=== PATIENT | female | born 1935 | race Caucasian/White ===

== ENCOUNTER → 2016-07-30 | Outpatient (CLI) | payer MEDICARE, OTHER ==
[~2016-07-30] MED LIST: ALPR.25 PEG; AMLO5TAB2 PEG; AMLO5TAB2 PO; AMLO5TAB96 PO; APIX5TAB PEG; ASPI325T PEG; ASPI325T PO; ASPI81CH37 CHEW; COUM2TAB PO; COZA100T PO; FISH1000 PO; FLUD.1 PEG; HOSP BED1; LANO0.2510 PO; LEVO50TA4 PEG; LEVO50TA4 PO; LIFT HOYER; LOSA100T PEG; LOSA100T PO; MELA1TAB22 PEG; METO25TA3 NG; METO25TA3 PEG; METO5SOL PO; SYNT25TA PO; TOPR25TA2 PO; TOPR50TA PO; WARF2.5 PO; WHEEMIS3; [UNRECOGNIZED DRUG - SUPPLY]
[2016-07-30 15:55] LABS: ANION GAP 10 MEQ/L (5-15); AST (GOT) 17 U/L (15-37); BICARBONATE 26.5 MEQ/L (21.0-32.0); BLOOD UREA NITROGEN 21 MG/DL (7-18); CHLORIDE 104 MEQ/L (98-107); GLOMERULAR FILTRATION RATE 52 ML/MIN (>89); GLUCOSE,FASTING 101 MG/DL (74-99); POTASSIUM 4.3 MEQ/L (3.5-5.1); SODIUM (NA) 140 MEQ/L (136-145)
[2016-07-30 15:57] LABS: AUTOMATED NEUTROPHIL # 6.6 TH/MM3 (1.8-7.7); BASOPHIL # 0.1 TH/MM3 (0-0.2); BASOPHIL % 0.5 % (0.0-2.0); EOSINOPHIL # 0.1 TH/MM3 (0-0.4); EOSINOPHIL % 0.5 % (0.0-4.0); HEMATOCRIT 35.2 % (35.0-46.0); LYMPH % 71.1 % (9.0-44.0); LYMPHOCYTE # 19.6 TH/MM3 (1.0-4.8); MEAN CELL VOLUME 83.4 FL (80.0-100.0); MEAN CORPUSCULAR HEMOGLOBIN 27.7 PG (27.0-34.0); MEAN CORPUSCULAR HGB CONC 33.2 % (32.0-36.0); MONO % 4.1 % (0.0-8.0); NEUT % 23.8 % (16.0-70.0); PLATELET COUNT 273 TH/MM3 (150-450); RED BLOOD COUNT 4.22 MIL/MM3 (4.00-5.30); RED CELL DISTRIBUTION WIDTH 14.3 % (11.6-17.2); WHITE BLOOD COUNT 27.6 TH/MM3 (4.0-11.0)
[2016-07-30 16:05] LABS: ALKALINE PHOSPHATASE 119 U/L (45-117); ALT (GPT) 21 U/L (10-53); TOTAL BILIRUBIN ADULT 1.1 MG/DL (0.2-1.0)
[2016-07-30 16:08] LABS: HEMO FLAGS AUTO DIFF
[2016-07-30 16:31] LABS: BANDS 2 % (0-6); EOSINOPHILS 1 % (0-4); NEUTROPHIL # MANUAL DIFF 9.1 TH/MM3 (1.8-7.7); PLATELET ESTIMATE SMEAR NORMAL (NORMAL); PLATELET MORPHOLOGY NORMAL (NORMAL); POLYS (SEG NEUTROPHILS) 31 % (16-70); SCAN/DIFF FINAL DIFF MANUAL; WBC DIFF SAMPLE 100
== END ==
LOC: PLAB 13:19
PROVIDERS: ATTEND Family Medicine
DX: I10 Essential (primary) hypertension (principal); D72.820 Lymphocytosis (symptomatic)
CPT/HCPCS: 36415; 80053; 85007; 85027

== ENCOUNTER 2016-08-04 22:08 | Inpatient (IN) | payer MEDICARE, OTHER ==
[~2016-08-04 22:08] MED LIST changes: -ALPR.25 PEG; -AMLO5TAB2 PEG; -AMLO5TAB2 PO; -APIX5TAB PEG; -ASPI325T PEG; -ASPI325T PO; -ASPI81CH37 CHEW; -COUM2TAB PO; -FLUD.1 PEG; -HOSP BED1; -LEVO50TA4 PEG; -LEVO50TA4 PO; -LIFT HOYER; -LOSA100T PEG; -LOSA100T PO; -MELA1TAB22 PEG; -METO25TA3 NG; -METO25TA3 PEG; -METO5SOL PO; -TOPR50TA PO; -WHEEMIS3; -[UNRECOGNIZED DRUG - SUPPLY]
[2016-08-04] MEDS ORDERED: SODIUM CHLOR 0.9% 1000 ML INJ 1,000 ML IV ONE (22:11)
[2016-08-04 22:30] LABS: I-STAT POTASSIUM 3.8 MMOL/L (3.5-4.9)
[2016-08-04 22:32] LABS: AUTOMATED NEUTROPHIL # 7.2 TH/MM3 (1.8-7.7); BASOPHIL # 0.3 TH/MM3 (0-0.2); BASOPHIL % 0.9 % (0.0-2.0); EOSINOPHIL # 0.4 TH/MM3 (0-0.4); EOSINOPHIL % 1.2 % (0.0-4.0); HEMATOCRIT 36.2 % (35.0-46.0); LYMPH % 72.8 % (9.0-44.0); LYMPHOCYTE # 25.2 TH/MM3 (1.0-4.8); MEAN CELL VOLUME 84.1 FL (80.0-100.0); MEAN CORPUSCULAR HEMOGLOBIN 26.4 PG (27.0-34.0); MEAN CORPUSCULAR HGB CONC 31.4 % (32.0-36.0); MONO % 4.3 % (0.0-8.0); NEUT % 20.8 % (16.0-70.0); PLATELET COUNT 271 TH/MM3 (150-450); RED BLOOD COUNT 4.31 MIL/MM3 (4.00-5.30); RED CELL DISTRIBUTION WIDTH 14.3 % (11.6-17.2); WHITE BLOOD COUNT 34.6 TH/MM3 (4.0-11.0)
[2016-08-04 22:34] LABS: HEMO FLAGS AUTO DIFF
[2016-08-04 22:42] LABS: APTT (PATIENT) 21.9 SEC (24.3-30.1); INTERNATIONAL NORMALIZED RATIO 0.9 RATIO; PROTHROMBIN TIME - PATIENT 10.3 SEC (9.8-11.6)
--- NOTE | 2016-08-04 22:49 | RADRPT ---
EXAM DATE/TIME: 08/04/2016 22:11 [facility] COMPARISON: No previous studies available for comparison. INDICATIONS : Stroke alert; right pupil enlargement and left sided weakness. RADIATION DOSE: 56.77 CTDIvol (mGy) This report was called by Dr. Romero to the emergency department at 10: 46 PM MEDICAL HISTORY : Non-responsive. SURGICAL HISTORY : Non-responsive. ENCOUNTER: Initial ACUITY: 1 day PAIN SCALE: Non-responsive LOCATION: cranial TECHNIQUE: Multiple contiguous axial images were obtained of the head. Using automated exposure control and adj ustment of the mA and/or kV according to patient size, radiation dose was kept as low as reasonably a chievable to obtain optimal diagnostic quality images. FINDINGS: CEREBRUM: The ventricles are normal for age. No evidence of midline shift, mass lesion, hemorrhage or acute in farction. No extra-axial fluid collections are seen. POSTERIOR FOSSA: The cerebellum and brainstem are intact. The 4th ventricle is midline. The cerebellopontine angle i s unremarkable. EXTRACRANIAL: The visualized portion of the orbits is intact. SKULL: The calvaria is intact. No evidence of skull fracture. CONCLUSION: 1. No acute findings. Chronic appearing white matter ischemic changes. Tin Romero MD on August 04, 2016 at 22:45 Board Certified Radiologist. This report was verified electronically.
[2016-08-04 22:54] LABS: EOSINOPHILS 1 % (0-4); NEUTROPHIL # MANUAL DIFF 5.9 TH/MM3 (1.8-7.7); POLYS (SEG NEUTROPHILS) 17 % (16-70); WBC DIFF SAMPLE 100
[2016-08-04 22:55] LABS: OVALOCYTES 1+ (NORMAL); PLATELET ESTIMATE SMEAR NORMAL (NORMAL); PLATELET MORPHOLOGY NORMAL (NORMAL); SCAN/DIFF FINAL DIFF MANUAL
--- NOTE | 2016-08-04 22:56 | RADRPT ---
EXAM DATE/TIME: 08/04/2016 22:34 [facility] COMPARISON: No previous studies available for comparison. INDICATIONS : Stroke alert. MEDICAL HISTORY : None. SURGICAL HISTORY : None. ENCOUNTER: Initial ACUITY: 1 day PAIN SCORE: Non-responsive. LOCATION: chest FINDINGS: There is cardiomegaly. No consolidation or effusion. No pneumothorax. Tortuous aorta. CONCLUSION: 1. Cardiomegaly without focal consolidation or effusion. Tin Romero MD on August 04, 2016 at 22:54 Board Certified Radiologist. This report was verified electronically.
[2016-08-04] MEDS ORDERED: IOHEXOL 350 MG/ML 10 ML VIAL (for RAD DIAG) IV ONE (22:57)
[2016-08-04] MEDS ORDERED: MAGNESIUM SULFATE INJ 2 GM in SODIUM CHLORIDE 0.9% INJ 96 ML IV PRN (23:00)
[2016-08-04] MEDS ORDERED: MAGNESIUM SULFATE INJ 4 GM in SODIUM CHLORIDE 0.9% INJ 92 ML IV PRN (23:00)
[2016-08-04] MEDS ORDERED: ONDANSETRON HCL 4 MG/2 ML VIAL IV PRN (23:00)
[2016-08-04] MEDS ORDERED: niCARdipine INJ 25 MG in SODIUM CHLOR 0.9% 250 ML INJ 250 ML IV SCH (23:00)
[2016-08-04] MEDS ORDERED: CHLORHEXIDINE GLUCONATE 2 % 1 PACK (2 CLOTHS) TOP PRN (23:00)
[2016-08-04] MEDS ORDERED: POTASSIUM PHOSPHATE MONOBASIC 500 MG TAB PO PRN (23:00)
[2016-08-04] MEDS ORDERED: SODIUM PHOSPHATE INJ 30 MMOL in SODIUM CHLOR 0.9% 250 ML INJ 240 ML IV PRN (23:00)
[2016-08-04] MEDS ORDERED: ALTEPLASE DRIP IV ONE (23:00)
[2016-08-04] MEDS ORDERED: MAGNESIUM OXIDE 400 MG TAB PO PRN (23:00)
[2016-08-04] MEDS ORDERED: DEXTROSE 50% IN WATER 50 ML VIAL(D50) IV PUSH PRN (23:00)
[2016-08-04] MEDS ORDERED: POTASSIUM PHOSPHATE INJ 30 MMOL in SODIUM CHLOR 0.9% 250 ML INJ 250 ML IV PRN (23:00)
[2016-08-04] MEDS ORDERED: POTASSIUM CHLOR 40 MEQ PREMIX 100 ML IV PRN ×2 (23:00)
[2016-08-04] MEDS ORDERED: SODIUM CHLORIDE 0.9% 50 ML BAG IVF ONE ×2 (23:00)
[2016-08-04] MEDS ORDERED: MISCELLANEOUS NURSING INFORMATION XX SCH (23:00)
[2016-08-04] MEDS ORDERED: MISCELLANEOUS NURSING INFORMATION XX PRN ×2 (23:00)
[2016-08-04] MEDS ORDERED: POTASSIUM PHOSPHATE MONOBASIC 500 MG TAB PO/TUBE PRN (23:00)
[2016-08-04] MEDS ORDERED: ALTEPLASE BOLUS 9 MG/9 ML SYR IV ONE (23:00)
[2016-08-04] MEDS ORDERED: SODIUM CHLORIDE 0.9% FLUSH 10 ML FLUSH IV FLUSH PRN (23:00)
[2016-08-04] MEDS ORDERED: POTASSIUM CHLOR 20 MEQ PREMIX 100 ML IV PRN ×2 (23:00)
--- NOTE | 2016-08-04 23:00 | HHI.HP ---
HPI Service Critical Care Medicine Primary Care Physician Rosalie Almazan MD Admission Diagnosis Diagnosis: Chief Complaint: altered mental status Travel History International Travel<30 Days: No Contact w/Intl Traveler <30 Da: No Traveled to Known Affected Are: No History of Present Illness This is an 81yF with acute onset of left-sided weakness at 21:30 tonight, witnessed. She was reportedly eating dinner with family when she slumped over. EMS was called. Reportedly she was previously on coumadin for atrial fibrillation but is no longer taking this and is only on aspirin. Her INR on admission is 0.9. Her NIH stroke scale on admission was 13. CT head was negative for acute bleed. CTA head/neck was + for right MCA flow cut off. She is getting systemic TPA in the ER and neurointerventional radiology has been alerted to assist with possible endovascular intervention. Critical Care medicine is consulted to evaluate and manage her post-TPA stroke care and hemodynamics. Of note, given her acute symptoms and severe dysarthria, I cannot obtain any additional history from the patient. I did arrive to evaluate the patient when she was in the CT scanner in the emergency department. Review of Systems ROS Limitations: Clinical Condition, Altered Mental Status Past Family Social History Allergies: Coded Allergies: Bee Sting (Verified Allergy, Severe, swells, 08/04/16) Past Medical History Patient is unable to provide a past medical history secondary to her clinical condition. Per chart review: Atrial fibrillation Hypertension Past Surgical History The patient is unable to provide past surgical history due to her clinical condition. Per chart review: right eye cataract surgery Reported Medications Patient is unable to provide a detailed home medication list due to her clinical condition. Per chart review: Norvasc (Amlodipine Besylate) 5 Mg Tab 5 Mg PO DAILY Fish Oil 1,000 Mg Cap 1,000 Mg PO DAILY Toprol Xl (Metoprolol Succinate) 25 Mg Tabcr 50 Mg PO DAILY Cozaar (Losartan Potassium) 100 Mg Tab 100 Mg PO DAILY Synthroid (Levothyroxine Sodium) 25 Mcg Tab 25 Mcg PO DAILY Lanoxin (Digoxin) 0.25 Mg Tab 0.25 Mg PO DAILY Coumadin (Warfarin Sodium) 2.5 Mg Tab 2 Mg PO DAILY Active Ordered Medications See MAR Family History unable to be obtained secondary to the clinical condition of the patient. Unlikely to be contributory to her acute illness. Social History unable to be obtained from the patient secondary to her clinical condition. per chart review: +etoh, +tob. Physical Exam Vital Signs Vital Signs Date Time Temp Pulse Resp B/P Pulse Ox O2 Delivery O2 Flow Rate FiO2 08/05/16 00:02 97.3 83 16 173/89 Physical Exam gen: elderly female, lying in bed, in distress due to her weakness heent: nc. at. mucous membranes moist. noted left facial droop neck: no jvd. trachea midline. chest: equal chest rise. clear to auscultation cv: normal rate, irregularly irregular rhythm. HR 80s. SBP 179 on my exam. abd: soft, nontender, nondistended. no guarding. extr: no peripheral edema. distal pulses 2+ neuro: gaze deviation to the right. STEPHEN 0/5 LUE, 1/5 LLE, 5/5 on right. left facial droop. noticeable dysarthria. Laboratory Laboratory Tests Test 08/04/16 22:15 White Blood Count 34.6 Red Blood Count 4.31 Hemoglobin 11.4 Bedside Hemoglobin 12.2 Hematocrit 36.2 Bedside Hematocrit 36.0 Mean Corpuscular Volume 84.1 Mean Corpuscular Hemoglobin 26.4 Mean Corpuscular Hemoglobin 31.4 Concent Red Cell Distribution Width 14.3 Platelet Count 271 Mean Platelet Volume 9.2 Neutrophils (%) (Auto) 20.8 Lymphocytes (%) (Auto) 72.8 Monocytes (%) (Auto) 4.3 Eosinophils (%) (Auto) 1.2 Basophils (%) (Auto) 0.9 Neutrophils # (Auto) 7.2 Lymphocytes # (Auto) 25.2 Monocytes # (Auto) 1.5 Eosinophils # (Auto) 0.4 Basophils # (Auto) 0.3 CBC Comment AUTO DIFF Differential Total Cells 100 Counted Neutrophils % (Manual) 17 Lymphocytes % 77 Monocytes % 5 Eosinophils % 1 Neutrophils # (Manual) 5.9 Differential Comment FINAL DIFF MANUAL Platelet Estimate NORMAL Platelet Morphology Comment NORMAL Ovalocytes 1+ Prothrombin Time 10.3 Prothromb Time International 0.9 Ratio Activated Partial 21.9 Thromboplast Time Fibrinogen 333 Bedside Sodium 140 Bedside Potassium 3.8 Bedside Chloride 103 Bedside Blood Urea Nitrogen 21 Bedside Creatinine 0.9 Bedside Glucose 101 Total Creatine Kinase 35 Troponin I 0.02 Result Diagram: 08/04/162214 Imaging Last Impressions Neck CTA 08/04/162210 Signed Impressions: Service Date/Time: Thursday, August 04, 2016 22:18 - CONCLUSION: 1. There is 50-60%% stenosis at the origin of the right internal carotid artery. There is 20-30%% stenosis on the left 2. Extensive calcific plaque involving the cavernous carotid arteries bilaterally Harsh Card MD Head CTA 08/04/161 Signed Impressions: Service Date/Time: Thursday, August 04, 2016 22:18 - CONCLUSION: 1. Occlusion of the right M1 segment of the middle cerebral artery. 2. Occlusion of the distal right anterior cerebral artery Harsh Card MD Head CT 08/04/16 0000 Signed Impressions: Service Date/Time: Thursday, August 04, 2016 22:11 - CONCLUSION: 1. No acute findings. Chronic appearing white matter ischemic changes. Tin Romero MD Chest X-Ray 08/04/16 0000 Signed Impressions: Service Date/Time: Thursday, August 04, 2016 22:34 - CONCLUSION: 1. Cardiomegaly without focal consolidation or effusion. Tin Romero MD Assessment and Plan Assessment and Plan Assessment: This is a 81yF with history of atrial fibrillation who stopped taking her coumadin and now is found to have a right MCA CVA with proximal flow cut-off on CTA. She is actively receiving systemic TPA and is being transported now to interventional neuroradiology for potential mechanical thrombectomy. She remains critically ill at this time. We will keep tight BP control with target sbp < 180. Strict q1h neuro checks. monitor for signs of bleeding. I have had discussions with Dr. Stacy and Dr. Yuan and Dr. Leal and we are all in agreement with this course of action. Plan by Systems: Neuro: Acute right MCA CVA -- s/p systemic TPA -- to IR for possible mechanical thrombectomy -- q1h neuro checks -- stroke precautions -- Neuro following: Dr. Yuan Resp: -- wean o2 by nc for goal spo2 > 92% -- aggressive pulmonary toilet. CV: Atrial Fibrillation Hypertensive Emergency -- will require anticoagulation. hold off for now in the setting of immediate post TPA -- Lipid panel -- 2d echo -- goal SBP < 180 -- nicardipine for goal blood pressure Renal: -- strict I/Os -- will proceed currently without [place]. May require [place] catheter after TPA for accurate I/Os. will re-eval. FEN/GI: Possible Dysphagia -- nursing bedside swallow evaluation. may require formal swallow evaluation. -- NPO for now. -- ICU electrolyte protocol. -- daily BMP Heme/ID: -- daily CBC -- monitor for signs of active bleeding post-TPA -- no infectious etiology suspected at this time. -- subtherapeutic INR. Endocrine: Hyperglycemia of Critical Illness -- SSI, med scale, q6h Prophylaxis: -- protonix iv for GI ppx -- SCDs, will restart SQH after TPA. Lines: -- piv. Dispo: -- admit to the ICU. She remains critically ill with active large distribution CVA. Critical Care time: 58 minutes, exclusive of separately billable procedures. Code Status Full Code Mateusz Dc MD Aug 04, 2016 23:00
--- NOTE | 2016-08-04 23:18 | PD ---
HPI . Stroke Chief Complaint: Stroke Alert Time Seen by Provider: 22:11 Travel History International Travel<30 days: No Contact w/Intl Traveler<30days: No History of Present Illness HPI Patient presents to us via [facility] with an acute stroke. She was reportedly last seen normal at 9:30 PM. They were eating dinner when she slumped at the table. EMS was called and she was brought to the hospital. Patient does have a history of atrial fibrillation and has been on Coumadin but reportedly up to Coumadin and is now just on aspirin. I do not yet know the circumstances of why she stopped Coumadin. The patient comes in with difficulty speaking and left-sided weakness. She vomited on arrival here. [id number]: Brain QUALITY: Weakness SEVERITY: NIH stroke score was 13 DURATION: Less than one hour at presentation TIMING: Acute onset at 9:30 PM CONTEXT: Patient with history of atrial fibrillation ASSOCIATED SYMPTOMS: Vomiting PFSH Past Medical History Arthritis: No Asthma: No Autoimmune Disease: No Blood Disorders: No Anxiety: No Depression: No Heart Rhythm Problems: No Cancer: No Cardiovascular Problems: Yes High Cholesterol: No Chemotherapy: No Chest Pain: No Congestive Heart Failure: No COPD: No Cerebrovascular Accident: No Diabetes: No Endocrine: No GERD: No Glaucoma: No Genitourinary: No Headaches: No Hepatitis: No Hiatal Hernia: No Hypertension: Yes Immune Disorder: No Kidney Stones: No Musculoskeletal: No Neurologic: No Psychiatric: No Reproductive: No Respiratory: No Migraines: No Myocardial Infarction: No Radiation Therapy: No Renal Failure: No Seizures: No Sleep Apnea: No Thyroid Disease: No Ulcer: No Past Surgical History Abdominal Surgery: No AICD: No Appendectomy: No Arteriovenous Shunt: No Cardiac Surgery: No Cholecystectomy: No Ear Surgery: No Endocrine Surgery: No Eye Surgery: Yes (CATARACT SX RIGHT EYE) Genitourinary Surgery: No Gynecologic Surgery: No Insulin Pump: No Joint Replacement: No Oral Surgery: No Pacemaker: No Thoracic Surgery: No Social History Alcohol Use: Yes Tobacco Use: Yes Substance Use: No Allergies-Medications (Allergen,Severity, Reaction): Coded Allergies: Bee Sting (Verified Allergy, Severe, swells, 05/07/11) Reported Meds & Prescriptions Reported Meds & Active Scripts Active Reported Norvasc (Amlodipine Besylate) 5 Mg Tab 5 Mg PO DAILY Fish Oil 1,000 Mg Cap 1,000 Mg PO DAILY Toprol Xl (Metoprolol Succinate) 25 Mg Tabcr 50 Mg PO DAILY Cozaar (Losartan Potassium) 100 Mg Tab 100 Mg PO DAILY Synthroid (Levothyroxine Sodium) 25 Mcg Tab 25 Mcg PO DAILY Lanoxin (Digoxin) 0.25 Mg Tab 0.25 Mg PO DAILY Coumadin (Warfarin Sodium) 2.5 Mg Tab 2 Mg PO DAILY Review of Systems Except as stated in HPI: all other systems reviewed are Neg General / Constitutional: No: Fever, Chills Eyes: Positive: Diploplia HENT: No: Headaches Cardiovascular: No: Chest Pain or Discomfort Respiratory: No: Shortness of Breath Gastrointestinal: Positive: Nausea, Vomiting Neurologic: Positive: Weakness, Focal Abnormalities, No: Headache Physical Exam Narrative GENERAL: Elderly woman who is alert and who was covered by her vomitus SKIN: Warm and dry. HEAD: Atraumatic. Normocephalic. EYES: Right pupil is dilated. Patient reports that this is normal for her. She is noted to have a left gaze palsy. ENT: No nasal bleeding or discharge. Mucous membranes pink and moist. NECK: Trachea midline. Neck is supple. CARDIOVASCULAR: Irregularly irregular rhythm with a controlled rate of 96. RESPIRATORY: No accessory muscle use. Lungs are clear with full air movement throughout. GASTROINTESTINAL: Abdomen soft, non-tender, nondistended. MUSCULOSKELETAL: No obvious deformities. No edema. NEUROLOGICAL: Awake and alert. She is able to communicate but has dysarthria. Left upper extremity is flaccid. She does have some movement against gravity with a left lower extremity. I do not appreciate any facial droop. PSYCHIATRIC: Appropriate mood and affect; insight and judgment normal. Data Data Orders Diet Npo (08/05/16 Breakfast) Activity Bed Rest (08/04/16 ) Electrocardiogram (08/04/16 ) I-Stat Creatinine (08/04/16 22:11) I-Stat Profile (08/04/16 22:11) Prothrombin Time / Inr (Pt) (08/04/16 22:11) Act Partial Throm Time (Ptt) (08/04/16 22:11) Complete Blood Count With Diff (08/04/16 22:11) Fibrinogen (08/04/16 22:11) Creatine Kinase (Cpk) (08/04/16 22:11) Troponin I (08/04/16 22:11) Ua Includes Microscopic (08/04/16 22:11) Drug Screen, Random Urine (08/04/16 22:11) Type And Screen (08/04/16 22:11) Ct Brain W/O Iv Contrast(Rout) (08/04/16 ) Chest, Single Ap (08/04/16 ) Cta Brain W Iv Contrast W 3d (08/04/16 22:11) Cta Neck W Iv Contrast W 3d (08/04/16 22:11) Ct Cerebral Perf W Iv Cont W3d (08/04/16 22:11) Consult Neurology (08/04/16 ) Blood Glucose (08/04/16 22:11) Ecg Monitoring (08/04/16 22:11) Neuro Checks Q2HX12,Q4H (08/04/16 22:11) Nursing Bedside Swallow Assess .ONCE (08/04/16 22:11) Iv Access Insert/Monitor (08/04/16 22:11) NPO (08/04/16 22:11) Oximetry (08/04/16 22:11) Oxygen Administration (08/04/16 22:11) Sodium Chlor 0.9% 1000 Ml Inj (Ns 1000 M (08/04/16 22:11) Resp Oxygen Rashi C Titrat 1-4 L (08/04/16 22:11) Cath For Specimen (08/04/16 22:11) (Hub Use Only)Inp Phy Cons/Ref (08/04/16 ) ^ Call Pharmacy (08/04/16 22:52) Nih Stroke Scale - Nihss .ONCE (08/04/16 22:52) Urinary Catheter Insert/Apply (08/04/16 22:52) Anticoagulant Alert (08/04/16 22:52) ^ Post Infusion Restrictions (08/04/16 22:52) ^ Medication Alert (08/04/16 22:52) Vital Signs (Adult) .As directed (08/04/16 22:52) Notify Dr: Blood Pressure (08/04/16 22:52) ^ Medication Alert (08/04/16 22:52) Sodium Chloride 0.9% Inj (Ns Inj) (08/04/16 23:00) Misc Nursing Information (08/04/16 23:00) Resp Oxygen Rashi C Titrat 1-4 L (08/04/16 ) Cbc No Diff, Includes Plts (08/05/16 05:00) Cbc No Diff, Includes Plts (08/06/16 05:00) Cbc No Diff, Includes Plts (08/07/16 05:00) Cbc No Diff, Includes Plts (08/08/16 05:00) Cbc No Diff, Includes Plts (08/09/16 05:00) Cbc No Diff, Includes Plts (08/10/16 05:00) Cbc No Diff, Includes Plts (08/11/16 05:00) Basic Metabolic Panel (Bmp) (08/05/16 05:00) Basic Metabolic Panel (Bmp) (08/06/16 05:00) Basic Metabolic Panel (Bmp) (08/07/16 05:00) Basic Metabolic Panel (Bmp) (08/08/16 05:00) Basic Metabolic Panel (Bmp) (08/09/16 05:00) Basic Metabolic Panel (Bmp) (08/10/16 05:00) Basic Metabolic Panel (Bmp) (08/11/16 05:00) Magnesium Oxide (Mag-Ox) (08/04/16 23:00) Magnesium Sulfate Inj (Magnesium Sulfate (08/04/16 23:00) Magnesium Sulfate Inj (Magnesium Sulfate (08/04/16 23:00) Potassium Chlor 20 Meq Premix (Kcl 20 Me (08/04/16 23:00) Potassium Chlor 20 Meq Premix (Kcl 20 Me (08/04/16 23:00) Potassium Chlor 40 Meq Premix (Kcl 40 Me (08/04/16 23:00) Potassium Chlor 40 Meq Premix (Kcl 40 Me (08/04/16 23:00) Potassium Phosphate (K-Phos) (08/04/16 23:00) Potassium Phosphate (K-Phos) (08/04/16 23:00) Potassium Phosphate Inj (Potassium Phosp (08/04/16 23:00) Sodium Phosphate Inj (Sodium Phosphate I (08/04/16 23:00) ^ Medication Admin Instruction (08/04/16 22:47) Notify Dr: Other (08/04/16 22:47) Inpatient Certification (08/04/16 22:47) Resp Ezpap/Pep Therapy (08/04/16 22:47) Resp Acapella/Pep/Chest Vibra (08/04/16 22:47) Resp Incentive Spirometry (08/04/16 22:47) Bedside Glucose THAO.Q6H (08/04/16 22:47) Blood Glucose Goal (Criteria) (08/04/16 22:47) Hypoglycemia 51 - 69 Mg/Dl (08/04/16 22:47) Hypoglycemia 50 Mg/Dl Or < (08/04/16 22:47) Notify Dr: Other (08/04/16 22:47) Dextrose 50% In Conner (Vial) Inj (D50w (Vi (08/04/16 23:00) Insulin Human Reg Supp Scale (Novolin R (08/05/16 00:00) Neuro Checks THAO.Q1H (08/04/16 22:47) Admit To Inpatient (08/04/16 ) Code Status (08/04/16 22:47) Vital Signs (Adult) THAO.Q1H (08/04/16 22:47) Activity Bed Rest (08/04/16 22:47) ^ Elevate Head Of Bed (08/04/16 22:47) Sodium Chloride 0.9% Flush (Ns Flush) (08/04/16 23:00) Sodium Chloride 0.9% Flush (Ns Flush) (08/05/16 09:00) Pantoprazole (Protonix) (08/05/16 09:00) Ondansetron Inj (Zofran Inj) (08/04/16 23:00) Docusate Sodium-Senna (Denise-Colace) (08/05/16 09:00) Albuterol-Ipratropium Neb (Duoneb Neb) (08/04/16 23:00) Relationship Counselor / Telemetry THAO.Q8H (08/04/16 22:47) Scd Bilateral/Knee High THAO.BID (08/04/16 22:47) ^ Initiate Protocol (08/04/16 22:47) ^ Instruction (08/04/16 22:47) [facility] [place] (08/04/16 23:00) Chlorhexidine 2% Cloth (Chlorhexidine 2% (08/05/16 04:00) Chlorhexidine 2% Cloth (Chlorhexidine 2% (08/04/16 23:00) Mrsa Pcr Surveillance (08/04/16 22:47) Inpatient Certification (08/04/16 ) Iohexol 350 Inj (Omnipaque 350 Inj) (08/04/16 22:57) ^ Call Pharmacy (08/04/16 22:57) Nih Stroke Scale - Nihss .ONCE (08/04/16 22:57) Anticoagulant Alert (08/04/16 22:57) Vital Signs (Adult) .As directed (08/04/16 22:57) Notify Dr: Blood Pressure (08/04/16 22:57) ^ Medication Alert (08/04/16 22:57) Alteplase Bolus (Activase Bolus) (08/04/16 23:00) Alteplase Drip (Activase Drip) (08/04/16 23:00) Sodium Chloride 0.9% Inj (Ns Inj) (08/04/16 23:00) Misc Nursing Information (08/04/16 23:00) Resp Oxygen Rashi C Titrat 1-4 L (08/04/16 ) ^ Post Infusion Restrictions (08/04/16 22:57) ^ Medication Alert (08/04/16 22:57) Mra Brain W/O Contrast (Cow) (08/04/16 ) Mri Brain W/O Contrast (08/04/16 ) Scd Bilateral/Knee High THAO.QSHIFT (08/04/16 22:56) Relationship Counselor / Telemetry THAO.Q8H (08/04/16 22:56) Hemoglobin (Hgb) A1c (08/04/16 22:56) Lipid Profile (08/04/16 22:56) Westergren Sedimentation Rate (08/04/16 22:56) Vitamin B12 (08/04/16 22:56) Thyroid Stimulating Hormone (08/04/16 22:56) Nicardipine Inj (Cardene Inj) (08/04/16 23:00) Echo 2d Comp W/Dopp(Routine) (08/04/16 ) Admit Order (Ed Use Only) (08/04/16 23:04) Labs Laboratory Tests Test 08/04/16 22:15 White Blood Count 34.6 TH/MM3 Red Blood Count 4.31 MIL/MM3 Hemoglobin 11.4 GM/DL Bedside Hemoglobin 12.2 G/DL Hematocrit 36.2 % Bedside Hematocrit 36.0 % Mean Corpuscular Volume 84.1 FL Mean Corpuscular Hemoglobin 26.4 PG Mean Corpuscular Hemoglobin 31.4 % Concent Red Cell Distribution Width 14.3 % Platelet Count 271 TH/MM3 Mean Platelet Volume 9.2 FL Neutrophils (%) (Auto) 20.8 % Lymphocytes (%) (Auto) 72.8 % Monocytes (%) (Auto) 4.3 % Eosinophils (%) (Auto) 1.2 % Basophils (%) (Auto) 0.9 % Neutrophils # (Auto) 7.2 TH/MM3 Lymphocytes # (Auto) 25.2 TH/MM3 Monocytes # (Auto) 1.5 TH/MM3 Eosinophils # (Auto) 0.4 TH/MM3 Basophils # (Auto) 0.3 TH/MM3 CBC Comment AUTO DIFF Differential Total Cells 100 Counted Neutrophils % (Manual) 17 % Lymphocytes % 77 % Monocytes % 5 % Eosinophils % 1 % Neutrophils # (Manual) 5.9 TH/MM3 Differential Comment FINAL DIFF MANUAL Platelet Estimate NORMAL Platelet Morphology Comment NORMAL Ovalocytes 1+ Prothrombin Time 10.3 SEC Prothromb Time International 0.9 RATIO Ratio Activated Partial 21.9 SEC Thromboplast Time Fibrinogen 333 mg/dL Bedside Sodium 140 MMOL/L Bedside Potassium 3.8 MMOL/L Bedside Chloride 103 MMOL/L Bedside Blood Urea Nitrogen 21 MG/DL Bedside Creatinine 0.9 MG/DL Bedside Glucose 101 MG/DL Total Creatine Kinase 35 U/L Troponin I 0.02 NG/ML MDM Medical Decision Making Medical Screen Exam Complete: Yes Emergency Medical Condition: Yes Medical Record Reviewed: Yes (history of atrial fibrillation. She also has a history of diabetes, hypertension and congestive heart failure. Her last recorded echo was in 2010. Ejection fraction at that time was 55-60%.) Differential Diagnosis Differential diagnosis includes but is not limited to TIA, CVA, brain tumor, migraine, anxiety Narrative Course Patient presented to us via [facility] following a witnessed stroke. Dr. Dc happened to be here at the time and has assisted with her management. The present consult TPA had been discussed with the patient and her 2 grown children. The risks and benefits have been explained. The patient wishes to proceed. CBC Diagram 08/04/16 22:15 Her chemistries are all normal. Troponin is less than 0.02. Her INR is 0.9. Last Impressions Head CT 08/04/16 0000 Signed Impressions: Service Date/Time: Saturday, August 04, 2016 22:11 - CONCLUSION: 1. No acute findings. Chronic appearing white matter ischemic changes. Tin Romero MD Critical Care Narrative Aggregate critical care time was 75 minutes. Time to perform other separately billable procedures was not included in the critical care time. My time did not include minutes spent treating any other patients simultaneously or on activities that did not directly contribute to the patient's treatment. The services I provided to this patient were to treat and/or prevent clinically significant deterioration due to acute stroke I provided critical care services requiring my management, as noted below: Chart data review, documentation time, medication orders and management, vital sign assessments/reviewing monitor data, ordering and reviewing lab tests, ordering and interpreting/reviewing x-rays and diagnostic studies, care of the patient and discussion of the patient with the admitting physicians Physician Communication Physician Communication Dr. Cortez was made aware immediately upon the patient's arrival here. I have communicated with him a couple of times since then. He has suggested that we proceed with TPA. Dr. Dc, media reporter, has also been present during this patient's entire evaluation. Dr. Stacy with interventional radiology is also aware of the patient. Diagnosis Primary Impression: Acute embolic stroke Admitting Information Admitting Physician Requests: Admit Condition: Stable Nikki Leal MD Aug 04, 2016 23:18
--- NOTE | 2016-08-04 23:22 | RADRPT ---
EXAM DATE/TIME: 08/04/2016 22:18 [facility] COMPARISON: No previous studies available for comparison. INDICATIONS : Stroke alert; right pupil enlargement, left sided weakness. IV CONTRAST: 60 cc Omnipaque 350 (iohexol) IV ; Cumulative dose for multiple exams. RADIATION DOSE: 13.55 CTDIvol (mGy) ; Combined studies MEDICAL HISTORY : Non-responsive. SURGICAL HISTORY : Non-responsive. ENCOUNTER: Initial ACUITY: 1 day PAIN SCALE: Non-responsive LOCATION: cranial TECHNIQUE: Volumetric scanning was performed using a multi-row detector CT scanner. The data was post processed with a variety of visualization algorithms including full volume maximum intensity projection, multi -planar sliding thin slab reformation, curved planar reformation, and surface rendering techniques. Using automated exposure control and adjustment of the mA and/or kV according to patient size, radiat ion dose was kept as low as reasonably achievable to obtain optimal diagnostic quality images. FINDINGS: There is complete occlusion of the M1 segment on the right side with a patent A1 segment to the level of the frontopolar branch where there is again occlusion.. There is poor collateral circulation over the hemisphere the left middle cerebral artery appears normal. There is heavy callus case of caverno us carotid arteries bilaterally. Examination of posterior fossa also demonstrates no evidence of aneurysm or vascular malformation. Th e vertebral arteries are codominant. CONCLUSION: 1. Occlusion of the right M1 segment of the middle cerebral artery. 2. Occlusion of the distal right anterior cerebral artery Harsh Card MD on August 04, 2016 at 23:16 Board Certified Radiologist. This report was verified electronically.
--- NOTE | 2016-08-04 23:26 | RADRPT ---
EXAM DATE/TIME: 08/04/2016 22:18 [facility] COMPARISON: No previous studies available for comparison. INDICATIONS : Stroke alert; right pupil enlargment, left sided weakness. IV CONTRAST: 60 cc Omnipaque 350 (iohexol) IV ; Cumulative dose for multiple exams. RADIATION DOSE: 13.55 CTDIvol (mGy) ; Combined studies MEDICAL HISTORY : Non-responsive. SURGICAL HISTORY : Non-responsive. ENCOUNTER: Initial ACUITY: 1 day PAIN SCALE: Non-responsive LOCATION: neck Elevated flow velocities and ICA/CCA ratios have been found to correlate with increased degrees of vessel stenosis, calculated as percentage of diameter relative to a normal segment of distal ICA/CCA. TECHNIQUE: Volumetric scanning was performed using a multirow detector CT scanner. The data was post processed with a variety of visualization algorithms including full-volume maximum intensity projection, multip lanar sliding thin-slab reformation, curved-planar reformation, and surface-rendering techniques. Us ing automated exposure control and adjustment of the mA and/or kV according to patient size, radiatio n dose was kept as low as reasonably achievable to obtain optimal diagnostic quality images. FINDINGS: No abnormality is identified within the lung apices. There is normal origin of vessels from the arch without evidence of proximal stenosis. Vertebral arteries are codominant. There is a 2 cm nodule in t he left lobe of the thyroid gland. Examination of the right common carotid artery demonstrates the vessel to be widely patent. There is 50-60% stenosis at the origin of the right internal carotid artery. More distally the cervical chemistry intern al carotid artery is intact. There is a calcification of the cavernous segment with occlusion of the right M1 segment. Examination of the left common carotid artery demonstrates the vessel to be widely patent. There is 2 0-30% stenosis at the origin the left internal carotid artery with minimal calcific plaque involving the cervical portion. More distally the cervical internal carotid artery is intact. Percent stenosis is calculated using the diameter of the stenotic region over the diameter of the nor mal distal internal carotid artery. CONCLUSION: 1. There is 50-60% stenosis at the origin of the right internal carotid artery. There is 20-30% steno sis on the left 2. Extensive calcific plaque involving the cavernous carotid arteries bilaterally Harsh Card MD on August 04, 2016 at 23:20 Board Certified Radiologist. This report was verified electronically.
[2016-08-04] MEDS ORDERED: fentaNYL CITRATE 250 MCG/5 ML AMP ONE (23:32)
[2016-08-04] MEDS ORDERED: MIDAZOLAM HCL 5 MG/5 ML VIAL ONE (23:43)
[2016-08-05] VITALS (17 sets, daily range): BP systolic 132–173; BP diastolic 60–89; PULSE 53–92; RESP 12–18; TEMP 96.8–97.8; O2SAT 93–100
[2016-08-05] MEDS ORDERED: COUM2TAB PO (00:01)
[2016-08-05] MEDS ORDERED: LOSA100T PO (00:01)
[2016-08-05] MEDS ORDERED: LEVO50TA4 PO (00:01)
[2016-08-05] MEDS ORDERED: TOPR50TA PO (00:01)
[2016-08-05] MEDS ORDERED: AMLO5TAB2 PO (00:01)
[2016-08-05] MEDS ORDERED: ASPI81CH37 CHEW (00:01)
[2016-08-05] MEDS ORDERED: HEPARIN SODIUM - IV 10,000 UNITS/10 ML VIAL ONE (00:28)
--- NOTE | 2016-08-05 00:54 | PD.RAD ---
Post Procedure Progress Note Pre Procedure Diagnosis: (1) Acute embolic stroke Post Procedure Diagnosis: (1) Acute embolic stroke Procedure Date: Aug 05, 2016 Supervising Radiologist: Ravi Stacy Proceduralist/Assist: Vanesa Yarbrough RT(R)(CV), Cassy Brooks RT(R)() Anesthesia: Local, Conscious Sedation Plan of Activity Patient to Unit: Other Patient Condition: Poor See PACS Report for procedural detail/treatment Vascular-Arterial Procedure Procedure 1 Procedure Site: Cerebral Procedure(s): Angiogram Access Access Site(s): Right Femoral Artery Findings: Occluded Rt Common and External iliac arteries. Eccentric plaque Rt ICA with 50% origin stenosis. Rt MCA thrombus lysed from IV t PA. Embolectomy not performed. Ravi Stacy MD Aug 05, 2016 00:53
[2016-08-05] MEDS ORDERED: IOHEXOL 350 MG/ML 50 ML BTL (for RAD DIAG) ONE (01:21)
--- NOTE | 2016-08-05 02:30 | RADRPT ---
EXAM DATE/TIME: 08/04/2016 22:15 [facility] COMPARISON: No previous studies available for comparison. INDICATIONS : Stroke alert; right pupil enlargement, left sided weakness. IV CONTRAST: 40 cc Omnipaque 350 (iohexol) IV RADIATION DOSE: 138.28 CTDIvol (mGy) MEDICAL HISTORY : Non-responsive. SURGICAL HISTORY : Non-responsive. ENCOUNTER: Initial ACUITY: 1 day PAIN SCALE: Non-responsive LOCATION: cranial TECHNIQUE: CT perfusion of the brain was performed with calculation of input and output functions and generation of color coded blood flow, blood volume and mean transit time maps. Using automated exposure control and adjustment of the mA and/or kV according to patient size, radiation dose was kept as low as reas onably achievable to obtain optimal diagnostic quality images. FINDINGS: There is a blood flow/blood volume mismatch involving the right temporal lobe. No other perfusion abn ormalities are identified.. Posterior fossa structures are unremarkable. This involves 10-20% of the perfusion abnormality. CONCLUSION: 1. Flow/volume mismatch involving the posterior right temporal lobe 1. Harsh Card MD on August 05, 2016 at 2:24 Board Certified Radiologist. This report was verified electronically.
[2016-08-05] MEDS: CHLORHEXIDINE GLUCONATE 2 % 1 PACK (2 CLOTHS) TOP SCH (04:00)
[2016-08-05 04:21] LABS: HEMATOCRIT 34.1 % (35.0-46.0); MEAN CORPUSCULAR HEMOGLOBIN 26.5 PG (27.0-34.0); MEAN CORPUSCULAR HGB CONC 31.5 % (32.0-36.0); PLATELET COUNT 214 TH/MM3 (150-450); RED BLOOD COUNT 4.06 MIL/MM3 (4.00-5.30); RED CELL DISTRIBUTION WIDTH 14.4 % (11.6-17.2); WHITE BLOOD COUNT 31.9 TH/MM3 (4.0-11.0)
[2016-08-05 04:29] LABS: REVIEW FLAG FINAL
[2016-08-05 04:47] LABS: ANION GAP 9 MEQ/L (5-15); BICARBONATE 25.7 MEQ/L (21.0-32.0); BLOOD UREA NITROGEN 17 MG/DL (7-18); CHLORIDE 103 MEQ/L (98-107); GLOMERULAR FILTRATION RATE 62 ML/MIN (>89); POTASSIUM 3.9 MEQ/L (3.5-5.1); SODIUM (NA) 138 MEQ/L (136-145)
[2016-08-05 05:13] LABS: HDL CHOLESTEROL 50.3 MG/DL (40.0-60.0); LDL CHOLESTEROL 96 MG/DL (0-99)
[2016-08-05] MEDS: INSULIN NovoLIN REGULAR SUPPLEMENTAL SCALE SQ SCH ×3 (06:00→12:00)
[2016-08-05] MEDS: SODIUM CHLORIDE 0.9% FLUSH 10 ML FLUSH IV FLUSH SCH ×2 (09:00→21:00)
[2016-08-05] MEDS: PANTOPRAZOLE SOD 40 MG DELAYED RELEASE TAB PO SCH (09:00)
[2016-08-05] MEDS: DOCUSATE SODIUM 50 MG/SENNA 8.6 MG TAB PO SCH ×2 (09:00→21:00)
--- NOTE | 2016-08-05 10:33 | PD.CONS ---
History of Present Illness Service Neurology Consult Requested By er Reason for Consult stroke alert Primary Care Physician Rosalie Almazan MD History of Present Illness 81yF with acute onset of left-sided weakness. came to er in less then an hour. nihss 13. she was given tpa and then went to intervention as cta showed a rt mca occlusion but rt mca thrombus lysed from IV t PA. Embolectomy not performed. this am, she denies cole. states she stopped coumadin 2/[address] brain showed right cerebellar hypodensity and significant ugo white matter changes. Review of Systems ROS Limitations: as above rest of 12 point negative Past Family Social History Allergies: Coded Allergies: Bee Sting (Verified Allergy, Severe, swells, 08/04/16) Past Medical History Patient is unable to provide a past medical history secondary to her clinical condition. Per chart review: hypothyroidism Atrial fibrillation Hypertension Past Surgical History The patient is unable to provide past surgical history due to her clinical condition. Per chart review: right eye cataract surgery Reported Medications Patient is unable to provide a detailed home medication list due to her clinical condition. Per chart review: Norvasc (Amlodipine Besylate) 5 Mg Tab 5 Mg PO DAILY Fish Oil 1,000 Mg Cap 1,000 Mg PO DAILY Toprol Xl (Metoprolol Succinate) 25 Mg Tabcr 50 Mg PO DAILY Cozaar (Losartan Potassium) 100 Mg Tab 100 Mg PO DAILY Synthroid (Levothyroxine Sodium) 25 Mcg Tab 25 Mcg PO DAILY Lanoxin (Digoxin) 0.25 Mg Tab 0.25 Mg PO DAILY Coumadin (Warfarin Sodium) 2.5 Mg Tab 2 Mg PO DAILY Active Ordered Medications See MAR Family History n/c Social History +etoh socially Review of Systems All other ROS: ROS reviewed as documented in chart Past Family Social History Allergies: Coded Allergies: Bee Sting (Verified Allergy, Severe, swells, 08/04/16) Active Ordered Medications Current Medications Medications (Trade) Dose Ordered Sig/Madina Route Start Time Stop Time Status Last Admin (NS 1000 ml Inj) 1,000 ml @ 70 mls/hr [id number] ONCE IV 08/04/16 22:11 08/05/16 12:28 Miscellaneous Information No Heparin, Warfarin, Aspir... UNSCH PRN XX 08/04/16 23:00 08/05/16 22:59 Magnesium Oxide 800 mg 800 mg UNSCH PRN PO 08/04/16 23:00 Magnesium Sulfate 4 gm/Sodium Chloride 100 ml @ 50 mls/hr UNSCH PRN IV 08/04/16 23:00 Magnesium Sulfate 2 gm/Sodium Chloride 100 ml @ 50 mls/hr UNSCH PRN IV 08/04/16 23:00 Potassium Chloride 100 ml @ 50 mls/hr Q2H PRN IV 08/04/16 23:00 Potassium Chloride 100 ml @ 50 mls/hr Q2H PRN IV 08/04/16 23:00 Potassium Chloride 100 ml @ 50 mls/hr Q2H PRN IV 08/04/16 23:00 (KCl 40 Meq Premix Inj) 100 ml @ 25 mls/hr UNSCH PRN IV 08/04/16 23:00 (K-Phos) 2,000 mg Q4H PRN PO 08/04/16 23:00 Potassium Phosphate 2000 mg 2,000 mg UNSCH PRN PO/TUBE 08/04/16 23:00 Potassium Phosphate 30 mmol/ Sodium Chloride 260 ml @ 42 mls/hr UNSCH PRN IV 08/04/16 23:00 (Sodium Phosphate Inj/NS 250 ml Inj) 250 ml @ 42 mls/hr UNSCH PRN IV 08/04/16 23:00 (D50w (Vial) Inj) 25 ml UNSCH PRN IV PUSH 08/04/16 23:00 (NovoLIN R SUPPLEMENTAL SCALE) 1 Q6HR SQ 08/05/16 00:00 (NS Flush) 2 ml UNSCH PRN IV FLUSH 08/04/16 23:00 (NS Flush) 2 ml BID IV FLUSH 08/05/16 09:00 08/05/16 09:00 (Protonix) 40 mg DAILY PO 08/05/16 09:00 (Zofran Inj) 4 mg Q6H PRN IV 08/04/16 23:00 (Denise-Colace) 2 tab BID PO 08/05/16 09:00 Miscellaneous Information 1 Q361D XX 08/04/16 23:00 (Chlorhexidine 2% Cloth) 3 pack Taper DAILY@04 TOP 08/05/16 04:00 08/01/17 03:59 (Chlorhexidine 2% Cloth) 3 pack UNSCH PRN TOP 08/04/16 23:00 Miscellaneous Information No Heparin, Warfarin, Aspir... UNSCH PRN XX 08/04/16 23:00 08/05/16 22:59 (Cardene Inj/NS 250 ml Inj) 260 ml @ 0 mls/hr TITRATE IV 08/04/16 23:00 Exam I&O / VS 08/04/16 08/04/16 08/05/16 15:00 23:00 07:00 Intake Total 151 ml Output Total 250 ml Balance -99 ml Intake IV Total 151 ml Output Urine Total 250 ml # Voids 3 Vital Signs Date Time Temp Pulse Resp B/P Pulse Ox O2 Delivery O2 Flow Rate FiO2 08/05/16 07:00 93 Nasal Cannula 4.00 08/05/16 07:00 97.8 82 18 142/84 93 08/05/16 06:35 75 13 132/61 100 08/05/16 05:00 84 18 135/84 100 08/05/16 04:05 97.6 84 18 147/66 100 08/05/16 03:35 97.6 84 18 135/66 100 08/05/16 03:20 55 14 137/60 100 08/05/16 02:35 64 14 151/66 100 08/05/16 02:10 99 Nasal Cannula 5.00 08/05/16 02:05 74 12 147/61 100 08/05/16 01:35 85 12 137/63 100 08/05/16 01:20 75 12 141/60 100 08/05/16 01:05 96.8 75 15 146/67 08/05/16 00:02 97.3 83 16 173/89 General: Alert and Oriented, No acute distress Neurologic: Alert Psychiatric: Cooperative Exam Comments ox 3, very dysarthric speech, left facial droop, vff grossly full , eomi, follows, left hemiplegia with some spontaneous/reflexive left leg movement, left sided dystaxia proportional to level of weakness, pin reduced left compared to rt Review/Management Diagnosis/Plan: (1) Acute embolic stroke Plan: rt mca infarct cardioembolic likely rt carotid 50% stenosis recs mri brain echo p.t./s.t repeat ct brain 24hrs from iv tpa administration as per protocol no blood thinners until tomorrow d/w pt/rn (2) HTN (hypertension) Plan: keep <180/100 (3) Afib Plan: was on aspirin (4) Hypothyroid Problem Qualifiers (1) HTN (hypertension): Qualified Code: I10 - Essential hypertension (2) Afib: Qualified Code: I48.2 - Chronic atrial fibrillation (3) Hypothyroid: Qualified Code: E03.9 - Hypothyroidism, unspecified type Freddy Cortez MD Aug 05, 2016 10:33
[2016-08-05 10:59] LABS: HEMOGLOBIN A1a 1.3 %; HEMOGLOBIN A1b 0.8 %; HEMOGLOBIN Ao 83.5 %; HEMOGLOBIN F 1.1 %; HEMOGLOBIN LA1C 2.4 %; HEMOGLOBIN P3 5.9 %
--- NOTE | 2016-08-05 11:56 | RADRPT ---
EXAM DATE/TIME: 08/05/2016 11:13 [facility] COMPARISON: CTA BRAIN W 3D RECON, August 04, 2016, 22:18. CT BRAIN CEREBRAL PERF ANALYSIS W/3D, August 04, 2016, 2 2:15. CT BRAIN W/O CONTRAST, August 04, 2016, 22:11. MRA BRAIN W/O CONTRAST, August 05, 2016, 11:13. INDICATIONS : CVA. s/p TPA. MEDICAL HISTORY : Hypertension. Carcinoma, squamous cell. SURGICAL HISTORY : Cataracts. ENCOUNTER: Initial ACUITY: 1 day PAIN SCORE: 0/10 LOCATION: cranial TECHNIQUE: Multiplanar, multisequence MRI of the brain was performed without contrast. FINDINGS: There are areas of abnormal diffusion involving the right temporal parietal lobes punctate areas in the right basal ganglia and region of the cingulate gyrus on the right side characteristic of acu te infarction without hemorrhage or mass effect. This questionable area involving the right occipital lobe. Significant periventricular white matter changes seen nonspecific mostly consistent with chron ic small vessel ischemic changes. Slight degree of brain atrophy is seen. CONCLUSION: Acute infarctions on the right side without hemorrhage or mass effect. Pam Sanchez MD on August 05, 2016 at 11:50 Board Certified Radiologist. This report was verified electronically.
--- NOTE | 2016-08-05 12:00 | RADRPT ---
EXAM DATE/TIME: 08/05/2016 11:13 [facility] COMPARISON: CTA BRAIN W 3D RECON, August 04, 2016, 22:18. MRI BRAIN W/O CONTRAST, August 05, 2016, 11:13. INDICATIONS : CVA. s/p TPA. MEDICAL HISTORY : Hypertension. Carcinoma, squamous cell. SURGICAL HISTORY : Cataracts. ENCOUNTER: Initial ACUITY: 2 day PAIN SCORE: 0/10 LOCATION: cranial Please note a normal MRA of the brain does not entirely exclude the possibility of a small aneurysm, nor the possibility of distal intracranial vessel disease. TECHNIQUE: 3D time of flight MRA was performed. Source images, multiplanar STS MIP, and 3D volume MIP reconstru ctions were reviewed. FINDINGS: No significant vascular malformations, vessel truncation or aneurysmal dilatations are seen except fo r slight atherosclerotic changes involving multiple branches bilaterally mainly the MCAs. There is be tter flow within the right M1 branch as compared to the prior CT angiogram of the ram[place] of [place] fr om 08/04/2016 and flow is identified within the distal branches as well. There is also better flow wit hin the right ALONDRA which also demonstrates flow within distal branches as well. CONCLUSION: Significant improvement in the flow within the right M1 and ALONDRA since the study from 08/04/2016. Pam aSnchez MD on August 05, 2016 at 11:55 Board Certified Radiologist. This report was verified electronically.
--- NOTE | 2016-08-05 12:52 | RADRPT ---
EXAM DATE/TIME: 08/05/2016 00:38 [facility] COMPARISON: No previous studies available for comparison. INDICATIONS : Patient is in need of a cerebral angiogram for evaluation of cerebral thrombus. MEDICAL HISTORY : History of AFIB, PVD, HTN. SURGICAL HISTORY : HIstory of cataract surgery. ENCOUNTER: Initial ACUITY: 1 day PAIN SCORE: 0/10 FLUORO TIME: 4.8 minutes IMAGE SERIES: 4 ACCESS SITE: Right Femoral artery SEDATION TIME: 60 minutes CONTRAST: 65 cc MEDICATION(S): 1.) 3 mg midazolam (Versed) IV 2.) 100 mcg fentanyl (Sublimaze) IV 3.) 5000 units Heparin IV DEVICE(S): 1.) Right common femoral artery 6Fr Perclose PROCEDURE : 1. Ultrasound-guided puncture of the access site. 2. Angiography of the access site prior to closure device. 3. Conscious sedation with continuous EKG and Oximetry monitoring. 4. Percutaneous closure of the access site. 5. Angiography of the right iliac vessels 6. Angiography of the right cerebral circulation The risks, benefits and alternatives to the procedure were explained and verbal and written consent w as obtained. The site was prepped in sterile fashion. Full sterile technique was used, including ca p, mask, sterile gloves and gown and a large sterile sheet. Hand hygiene and 2% chlorhexidine and/or betadine/alcohol prep was utilized per protocol for cutaneous antisepsis. The skin and subcutaneous tissues were infiltrated with local anesthetic solution. With ultrasound and fluoroscopic guidance the selected artery was punctured and a vascular sheath was placed. Angiography of the common femoral artery was performed for evaluation prior to percutaneous closure device placement. 5 placement of a 4 Sudanese sheath a retrograde right iliac arteriogram was performed. There is complet e occlusion of the right external iliac artery above the inguinal ligament. Guidewire and catheter were advanced through the occlusion into the abdominal aorta which is patent. A 25 cm a dry sheath was then advanced through the occlusion into the infrarenal abdominal aorta. Diagnostic cerebral catheter was then advanced over a guidewire into the aortic arch. The right inter nal Butch was selectively catheterized. Right carotid arteriogram was performed and demonstrated eccentric plaque at the origin of the international marketing manager al carotid artery with moderate stenosis approximately 50%. The diagnostic catheter was gently advanced through the right internal artery stenosis into the proxi mal cervical segment. A right cerebral arteriogram was performed. The internal artery, middle cerebral artery and anterior cerebral artery are widely patent. The throm bus and occlusion of the M1 segment of the right MCA has resolved following intravenous thrombolytic treatment. No further intervention was performed. Hemostasis was obtained with the prescribed medicated closure device. Conscious sedation was perform ed with the prescribed dosages and duration as above in the presence of an independent trained radiol ogy nurse to assist in the monitoring of the patient. EKG and oximetry remained stable throughout th e procedure. CONCLUSION: Peripheral vascular disease with right iliac occlusion. Patent M1 segment of the right middle cerebral artery with interval resolution of an obstructing thro mbus following intravenous thrombolytic therapy. No endovascular thrombectomy performed. Ravi Stacy MD on August 05, 2016 at 11:50 Board Certified Radiologist. This report was verified electronically.
--- NOTE | 2016-08-05 13:49 | HHI.CCPN ---
Subjective Remarks/Hospital Course CCM TRANSFER SUMMARY/ PROGRESS NOTE: This is an 81yF with acute onset of left-sided weakness at 21:30 tonight, witnessed. She was reportedly eating dinner with family when she slumped over. EMS was called. Reportedly she was previously on coumadin for atrial fibrillation but is no longer taking this and is only on aspirin. Her INR on admission is 0.9. Her NIH stroke scale on admission was 13. CT head was negative for acute bleed. CTA head/neck was + for right MCA flow cut off. She is getting systemic TPA in the ER and neurointerventional radiology has been alerted to assist with possible endovascular intervention. Critical Care medicine is consulted to evaluate and manage her post-TPA stroke care and hemodynamics. Of note, given her acute symptoms and severe dysarthria, I cannot obtain any additional history from the patient. I did arrive to evaluate the patient when she was in the CT scanner in the emergency department. SUBJ 08/05/16: Remains flaccid on L side. Otherwise weaning Cardene drip. Target SBP <180. Yesterday underwent IV TPA. Post TPA taken to IR as CTA showed R MCA occlusion but thrombus lysed from IV t PA. For this reason embolectomy not performed. Family at bedside updated. Objective Vital Signs Date Time Temp Pulse Resp B/P Pulse Ox O2 Delivery O2 Flow Rate FiO2 08/05/16 07:00 93 Nasal Cannula 4.00 08/05/16 07:00 97.8 82 18 142/84 Result Diagram: 08/05/16 0350 08/05/16 0350 Imaging Last Impressions Neck CTA 08/04/162210 Signed Impressions: Service Date/Time: Thursday, August 04, 2016 22:18 - CONCLUSION: 1. There is 50-60%% stenosis at the origin of the right internal carotid artery. There is 20-30%% stenosis on the left 2. Extensive calcific plaque involving the cavernous carotid arteries bilaterally Harsh Card MD Head CTA 08/04/162210 Signed Impressions: Service Date/Time: Thursday, August 04, 2016 22:18 - CONCLUSION: 1. Occlusion of the right M1 segment of the middle cerebral artery. 2. Occlusion of the distal right anterior cerebral artery Harsh Card MD Head CT 08/04/16 0000 Signed Impressions: Service Date/Time: Thursday, August 04, 2016 22:11 - CONCLUSION: 1. No acute findings. Chronic appearing white matter ischemic changes. Tin Romero MD Chest X-Ray 08/04/16 0000 Signed Impressions: Service Date/Time: Thursday, August 04, 2016 22:34 - CONCLUSION: 1. Cardiomegaly without focal consolidation or effusion. Tin Romero MD Objective Remarks gen: elderly female, lying in bed, in distress due to her weakness heent: nc. at. mucous membranes moist. noted left facial droop neck: no jvd. trachea midline. chest: equal chest rise. clear to auscultation cv: normal rate, irregularly irregular rhythm. HR 80s. [id number] on cardene gtt abd: soft, nontender, nondistended. no guarding. extr: no peripheral edema. distal pulses 2+ neuro: Alert awake oriented. STEPHEN 0/5 LUE, 1/5 LLE, 5/5 on right. left facial droop. +ve dysarthria. A/P Assessment and Plan Assessment: This is a 81yF with history of atrial fibrillation who stopped taking her Coumadin and now is found to have a right MCA CVA with proximal flow cut-off on CTA. She is actively receiving systemic TPA and is being transported now to interventional neuroradiology for potential mechanical thrombectomy-By that time thrombus was lysed and embolectomy not performed. She remains critically ill at this time. We will keep tight BP control with target sbp < 180. Strict q1h neuro checks. monitor for signs of bleeding. Dr. Dc had discussions with Dr. Stacy and Dr. Yuan and Dr. Leal and we are all in agreement with this course of action. Plan by Systems: Neuro: Acute right MCA CVA -- s/p systemic TPA. Went to IR 08/04 for possible mechanical thrombectomy, but thrombus has already lysed -- q1h neuro checks -- stroke precautions -- Neuro following: Dr. Yuan -- Start ASA once cleared by N/S -- PT/OT/ST Resp: -- wean o2 by nc for goal spo2 > 92% -- aggressive pulmonary toilet. CV: Atrial Fibrillation Hypertensive Emergency -- will require anticoagulation. hold off for now in the setting of immediate post TPA -- Lipid panel -- 2d echo -- goal SBP < 180 -- nicardipine for goal blood pressure-Wean to DC -- Use PRN hydralazine and Labetalol Renal: -- strict I/Os -- Monitor BUN/creat FEN/GI: Possible Dysphagia -- nursing bedside swallow evaluation. Speech therapy consult -- NPO for now. -- ICU electrolyte protocol. -- daily BMP Heme/ID: -- daily CBC-Leukocytosis most likely stress related. Check UA and blood cultures -- monitor for signs of active bleeding post-TPA -- no infectious etiology suspected at this time. -- subtherapeutic INR. Endocrine: Hyperglycemia of Critical Illness -- SSI, med scale, q6h Prophylaxis: -- protonix iv for GI ppx -- SCDs, will restart SQH after TPA, when cleared by neurology Lines: -- piv. Dispo: -- admit to the ICU. She remains critically ill with active large distribution CVA. Level 3 [facility]HH consulted to assume care in am. Continue ICU care Makenna Morales MD Aug 05, 2016 13:49
[2016-08-05] MEDS ORDERED: hydrALAZINE HCL 20 MG/ML VIAL IV PUSH PRN (14:00)
--- NOTE | 2016-08-05 14:00 | RADRPT ---
EXAM DATE/TIME: 08/05/2016 12:06 [facility] COMPARISON: No previous studies available for comparison. INDICATIONS : Cerebrovascular accident. MEDICAL HISTORY : Afib. SURGICAL HISTORY : None. ENCOUNTER: Initial ACUITY: 1 day PAIN SCORE: 0/10 LOCATION: Bilateral neck PEAK SYSTOLIC VELOCITIES (cm/sec): ICA/CCA RATIO: Right: 1.7 Left: 1.1 ICA: Right: 139 Left: 138 CCA: Right: 79 Left: 122 ECA: Right: 0 Left: 123 VERTEBRAL: Right: 79 antegrade Left: 83 antegrade Elevated flow velocities and ICA/CCA ratios have been found to correlate with increased degrees of vessel stenosis, calculated as percentage of diameter relative to a normal segment of distal ICA/CCA FINDINGS: Antegrade flow is seen in both vertebral arteries. There is mild atherosclerotic plaquing at the orig in of both ICAs without any significant stenosis. CONCLUSION: No evidence for hemodynamically significant stenosis. Pam Sanchez MD on August 05, 2016 at 13:58 Board Certified Radiologist. This report was verified electronically.
--- NOTE | 2016-08-05 14:14 | EKG ---
Date Performed: 08/04/2016 Time Performed: 23:07:51 PTAGE: 81 years EKG: ATRIAL FIB/FLUTTER WITH VARIABLE VENTRICULAR RESPONSE LVH WITH SECONDARY ST-T WAVE CHANGE C ompared to previous tracing, T wave changes inferiorly have improved, otherwise, no significant velasco e. ABNORMAL ECG PREVIOUS TRACING : 04/30/2011 11.39 DOCTOR: Fausto Hernandez Interpretating Date/Time 08/05/2016 14:13:04
--- NOTE | 2016-08-05 17:11 | HHI.PR ---
Addendum to Inpatient Note Addendum Reason: Additional Documentation Additional Information Primary care note from outpatient: Pt is normally on levothyroxine 50mcg daily , metoprolol succionate 50mg PO daily, losartan 100mg daily and aspirin 325mg daily. she is no longer taking norvasc due to swelling and her BP had been controlled outpatient. She stopped coumadin in March 2016 after a long discussion of pros/cons as she didn't want to continue INR testing (even if she did it from home) and didn't want the risks of bleeding with anticoagulation. She declined the factor Xa inhibitors. She was well educated to the r/b/se of stopping. I saw her this past week with a non=healing wound to her left lower leg. she has a longstanding history of claudication and PVD but had declined treatment or even evaluation of it in the past. I was in the process of getting her set with Dr. Harris in vascular surgery and [place] wound care to get the wound taken care of (I felt she would need revascularization to appropriately heal). Her CTA run off of the LE was done this week at [facility]. She also sees Dr. Carty from a cardiac standpoint. She has declined to accept flu and pneumonia vaccines. Previously, she stated her desire to avoid aggressive intervention (as evidenced by the above) however I do not have a living will or POA forms on my chart. She was in the office this week with her daughter, but I'm not sure if she is still in town. Rosalie Avila MD Aug 05, 2016 17:11
[2016-08-06] VITALS (20 sets, daily range): BP systolic 167–191; BP diastolic 79–94; PULSE 88–144; RESP 18–36; TEMP 97.4–99; O2SAT 87–98
[2016-08-06 00:51] LABS: BLOOD, URINE NEG (NEG); COMMENT (UR) CATH-CULT NOT IND; CULTURE IF INDICATED CATH CULTURE NOT IND; GLUCOSE,URINE NEG (NEG); KETONE, URINE 10 mg/dL (NEG); MUCUS URINE FEW /lpf (OCC); NITRITE,URINE NEG (NEG); URINE COLOR YELLOW (YELLW/STRAW)
[2016-08-06 00:56] LABS: AMPHETAMINE, URINE NEG (NEG); BARBITURATES, URINE NEG (NEG); COCAINE, URINE NEG (NEG)
[2016-08-06] MEDS: CHLORHEXIDINE GLUCONATE 2 % 1 PACK (2 CLOTHS) TOP SCH (04:00)
[2016-08-06 05:01] LABS: HEMATOCRIT 37.1 % (35.0-46.0); MEAN CELL VOLUME 82.8 FL (80.0-100.0); MEAN CORPUSCULAR HEMOGLOBIN 27.3 PG (27.0-34.0); PLATELET COUNT 271 TH/MM3 (150-450); RED BLOOD COUNT 4.48 MIL/MM3 (4.00-5.30); RED CELL DISTRIBUTION WIDTH 14.5 % (11.6-17.2); WHITE BLOOD COUNT 32.7 TH/MM3 (4.0-11.0)
[2016-08-06 05:13] LABS: HEMO FLAGS AUTO DIFF
[2016-08-06 05:38] LABS: ALKALINE PHOSPHATASE 110 U/L (45-117); ALT (GPT) 18 U/L (10-53); ANION GAP 9 MEQ/L (5-15); AST (GOT) 38 U/L (15-37); BICARBONATE 26.5 MEQ/L (21.0-32.0); BLOOD UREA NITROGEN 17 MG/DL (7-18); CHLORIDE 103 MEQ/L (98-107); GLOMERULAR FILTRATION RATE 55 ML/MIN (>89); SODIUM (NA) 138 MEQ/L (136-145); TOTAL BILIRUBIN ADULT 1.5 MG/DL (0.2-1.0)
[2016-08-06] MEDS: INSULIN NovoLIN REGULAR SUPPLEMENTAL SCALE SQ SCH ×4 (06:00→17:18)
[2016-08-06 06:50] LABS: BANDS 4 % (0-6); NEUTROPHIL # MANUAL DIFF 13.7 TH/MM3 (1.8-7.7); POLYS (SEG NEUTROPHILS) 38 % (16-70); WBC DIFF SAMPLE 100
[2016-08-06 06:53] LABS: SMUDGE CELLS PRESENT PRESENT
[2016-08-06 06:54] LABS: OVALOCYTES 1+ (NORMAL); PLATELET ESTIMATE SMEAR NORMAL (NORMAL); PLATELET MORPHOLOGY NORMAL (NORMAL); SCAN/DIFF FINAL DIFF MANUAL
--- NOTE | 2016-08-06 07:45 | RADRPT ---
EXAM DATE/TIME: 08/06/2016 07:23 [place] COMPARISON: CHEST SINGLE AP, August 04, 2016, 22:34. INDICATIONS : Short of breath MEDICAL HISTORY : Stroke. SURGICAL HISTORY : None. ENCOUNTER: Subsequent ACUITY: 3 days PAIN SCORE: Non-responsive. LOCATION: Bilateral chest FINDINGS: There is hyperaeration the lung jean. There is some mild interstitial changes in the right upper rehana ng. Otherwise, the lungs remain grossly clear. The heart size is diffusely enlarged but stable compar ed to the prior study. There are no pleural effusions. There is no evidence of pneumothorax. The bony structures are stable. CONCLUSION: Mild interstitial infiltrate right upper lung. Patrick Nieto MD on August 06, 2016 at 7:43 Board Certified Radiologist. This report was verified electronically.
[2016-08-06] MEDS: DOCUSATE SODIUM 50 MG/SENNA 8.6 MG TAB PO SCH ×2 (08:15→19:54)
[2016-08-06] MEDS: PANTOPRAZOLE SOD 40 MG DELAYED RELEASE TAB PO SCH (08:15)
[2016-08-06] MEDS: SODIUM CHLORIDE 0.9% FLUSH 10 ML FLUSH IV FLUSH SCH ×2 (08:16→19:59)
[2016-08-06] MEDS: RESP: ALBUTEROL 2.5 MG/IPRATROPIUM 0.5 MG NEB (PRN) INH ×2 (08:33→15:53)
--- NOTE | 2016-08-06 08:53 | HHI.PR ---
Review/Management Diagnosis/Plan: (1) Acute embolic stroke Plan: rt mca infarcts s/p iv tpa rt mca lorin no longer visible. but persistent left hemiplegia cardioembolic likely rt carotid 50% stenosis pt declined oac in the past. pcp note reviewed recs mri brain-images reviewed ok for 5th floor justice with tele will start aspirin and consider OAC in 1-2 weeks if she is willing and depending on clinical status watch for aspiration echo p.t./s.t d/w pt/rn (2) HTN (hypertension) Plan: keep <180/100 (3) Afib Plan: was on aspirin (4) Hypothyroid Subjective Subjective Comments No acute events reported No headache No chest pain No dyspnea Active Medications Current Medications Medications (Trade) Dose Ordered Sig/Madina Route Start Time Stop Time Status Last Admin Magnesium Oxide 800 mg 800 mg UNSCH PRN PO 08/04/16 23:00 Magnesium Sulfate 4 gm/Sodium Chloride 100 ml @ 50 mls/hr UNSCH PRN IV 08/04/16 23:00 Magnesium Sulfate 2 gm/Sodium Chloride 100 ml @ 50 mls/hr UNSCH PRN IV 08/04/16 23:00 Potassium Chloride 100 ml @ 50 mls/hr Q2H PRN IV 08/04/16 23:00 Potassium Chloride 100 ml @ 50 mls/hr Q2H PRN IV 08/04/16 23:00 Potassium Chloride 100 ml @ 50 mls/hr Q2H PRN IV 08/04/16 23:00 (KCl 40 Meq Premix Inj) 100 ml @ 25 mls/hr UNSCH PRN IV 08/04/16 23:00 (K-Phos) 2,000 mg Q4H PRN PO 08/04/16 23:00 Potassium Phosphate 2000 mg 2,000 mg UNSCH PRN PO/TUBE 08/04/16 23:00 Potassium Phosphate 30 mmol/ Sodium Chloride 260 ml @ 42 mls/hr UNSCH PRN IV 08/04/16 23:00 (Sodium Phosphate Inj/NS 250 ml Inj) 250 ml @ 42 mls/hr UNSCH PRN IV 08/04/16 23:00 (D50w (Vial) Inj) 25 ml UNSCH PRN IV PUSH 08/04/16 23:00 (NovoLIN R SUPPLEMENTAL SCALE) 1 Q6HR SQ 08/05/16 00:00 (NS Flush) 2 ml UNSCH PRN IV FLUSH 08/04/16 23:00 (NS Flush) 2 ml BID IV FLUSH 08/05/16 09:00 08/06/16 08:16 (Protonix) 40 mg DAILY PO 08/05/16 09:00 (Zofran Inj) 4 mg Q6H PRN IV 08/04/16 23:00 (Denise-Colace) 2 tab BID PO 08/05/16 09:00 Miscellaneous Information 1 Q361D XX 08/04/16 23:00 (Chlorhexidine 2% Cloth) 3 pack Taper DAILY@04 TOP 08/05/16 04:00 08/01/17 03:59 08/06/16 04:00 (Chlorhexidine 2% Cloth) 3 pack UNSCH PRN TOP 08/04/16 23:00 (Apresoline Inj) 20 mg Q4H PRN IV PUSH 08/05/16 14:00 (Trandate Inj) 20 mg Q4H PRN IV PUSH 08/05/16 14:00 Allergies Allergies Coded Allergies Bee Sting (Verified Allergy, Severe, swells, 08/04/16) Review of Systems All other ROS: ROS reviewed as documented in chart Exam I&O / VS 08/05/16 08/05/16 08/06/16 15:00 23:00 07:00 Intake Total 263 ml 0 ml 0 ml Output Total 0 ml 550 ml Balance 263 ml 0 ml -550 ml Intake Oral 0 ml 0 ml IV Total 263 ml Output Urine Total 550 ml Stool Total 0 ml # Voids 1 1 # Bowel Movements 1 2 0 Vital Signs Date Time Temp Pulse Resp B/P Pulse Ox O2 Delivery O2 Flow Rate FiO2 08/06/16 06:00 107 08/06/16 04:00 118 08/06/16 02:00 110 08/06/16 00:00 108 08/05/16 20:56 94 Nasal Cannula 3.50 08/05/16 20:00 92 08/05/16 19:00 96 Nasal Cannula 4.00 General: Alert and Oriented, No acute distress Neurologic: Alert Psychiatric: Cooperative Exam Comments ox 3, very dysarthric speech, left facial droop, vff grossly full , eomi, follows, left hemiplegia with some spontaneous/reflexive left leg movement, left sided dystaxia proportional to level of weakness, pin reduced left compared to rt Objective Micro and Labs Laboratory Tests Test 08/06/16 08/06/16 00:30 04:41 Urine Color YELLOW Urine Turbidity CLEAR Urine pH 6.0 Urine Specific [place] 1.029 Urine Protein NEG Urine Glucose (UA) NEG Urine Ketones 10 Urine Occult Blood NEG Urine Nitrite NEG Urine Bilirubin NEG Urine Urobilinogen 2.0 Urine Leukocyte Esterase NEG Urine RBC 1 Urine WBC 1 Urine Mucus FEW Microscopic Urinalysis Comment CATH-CULT NOT IND Urine Opiates Screen NEG Urine Barbiturates Screen NEG Urine Amphetamines Screen NEG Urine Benzodiazepines Screen POS Urine Cocaine Screen NEG Urine Cannabinoids Screen NEG White Blood Count 32.7 Red Blood Count 4.48 Hemoglobin 12.2 Hematocrit 37.1 Mean Corpuscular Volume 82.8 Mean Corpuscular Hemoglobin 27.3 Mean Corpuscular Hemoglobin 33.0 Concent Red Cell Distribution Width 14.5 Platelet Count 271 Mean Platelet Volume 9.3 Neutrophils (%) (Auto) Lymphocytes (%) (Auto) Monocytes (%) (Auto) Eosinophils (%) (Auto) Basophils (%) (Auto) Neutrophils # (Auto) Lymphocytes # (Auto) Monocytes # (Auto) Eosinophils # (Auto) Basophils # (Auto) CBC Comment AUTO DIFF Differential Total Cells 100 Counted Neutrophils % (Manual) 38 Band Neutrophils % 4 Lymphocytes % 56 Monocytes % 2 Neutrophils # (Manual) 13.7 Differential Comment FINAL DIFF MANUAL Smudge Cells PRESENT Platelet Estimate NORMAL Platelet Morphology Comment NORMAL Ovalocytes 1+ Sodium Level 138 Potassium Level 4.0 Chloride Level 103 Carbon Dioxide Level 26.5 Anion Gap 9 Blood Urea Nitrogen 17 Creatinine 0.97 Estimat Glomerular Filtration 55 Rate Random Glucose 128 Calcium Level 8.9 Magnesium Level 2.0 Total Bilirubin 1.5 Aspartate Amino Transf 38 (AST/SGOT) Alanine Aminotransferase 18 (ALT/SGPT) Alkaline Phosphatase 110 Total Protein 7.3 Albumin 3.5 Date/Time Procedure Status Source Growth 08/05/16 23:00 Aerobic Blood Culture Received Blood Peripheral Pending 08/05/16 23:00 Anaerobic Blood Culture Received Blood Peripheral Pending 08/05/16 06:00 [facility] Batch Blood Peripheral Problem Qualifiers (1) HTN (hypertension): Qualified Code: I10 - Essential hypertension (2) Afib: Qualified Code: I48.2 - Chronic atrial fibrillation (3) Hypothyroid: Qualified Code: E03.9 - Hypothyroidism, unspecified type Freddy Cortez MD Aug 06, 2016 08:53
[2016-08-06] MEDS: HEPARIN SODIUM - SQ 10,000 UNITS/ML VIAL SQ SCH ×2 (10:09→19:58)
[2016-08-06] MEDS: ASPIRIN 300 MG SUPP RECTAL SCH (10:09)
[2016-08-06] MEDS: DEXT 5%-NACL 0.9% 1000 ML INJ 1,000 ML IV SCH (11:50)
--- NOTE | 2016-08-06 14:25 | HHI.PR ---
Subjective Remarks 81 years old right handed female, history of chronic atrial fibrillation taken off coumadin x 1 month due to superficial skin tears with bleeding admitted for CVA- transfer to [facility] service for continuation of care seen with family at bedside- smoker about 15 sticks a day patient awake but lethargic, easily awakens- ff commands, stated her name, speech slurred poor gag reflex, denies any headache ff commands Objective Vitals Vital Signs Date Time Temp Pulse Resp B/P Pulse Ox O2 Delivery O2 Flow Rate FiO2 08/06/16 13:00 97.4 104 21 175/84 96 08/06/16 12:00 132 08/06/16 12:00 132 21 173/83 96 08/06/16 11:06 104 21 176/86 96 08/06/16 10:00 130 21 167/87 96 08/06/16 10:00 130 08/06/16 09:00 137 22 190/86 96 08/06/16 08:30 96 Nasal Cannula 2.00 08/06/16 08:00 86 Nasal Cannula 2.00 08/06/16 08:00 144 08/06/16 08:00 98.0 113 21 175/83 94 08/06/16 07:00 102 22 176/94 87 08/06/16 06:00 107 08/06/16 04:00 118 08/06/16 02:00 110 08/06/16 00:00 108 08/05/16 20:56 94 Nasal Cannula 3.50 08/05/16 20:00 92 08/05/16 19:00 96 Nasal Cannula 4.00 I/O 08/05/16 08/05/16 08/05/16 08/06/16 08/06/16 08/06/16 07:00 15:00 23:00 07:00 15:00 23:00 Intake Total 151 ml 263 ml 0 ml 0 ml Output Total 250 ml 0 ml 550 ml Balance -99 ml 263 ml 0 ml -550 ml Intake Oral 0 ml 0 ml IV Total 151 ml 263 ml Output Urine Total 250 ml 550 ml Stool Total 0 ml # Voids 3 1 1 # Bowel Movements 1 2 0 Result Diagram: 08/06/16 0441 08/06/16 0441 Imaging Last Impressions Chest X-Ray 08/06/16 0000 Signed Impressions: Service Date/Time: Saturday, August 06, 2016 07:23 - CONCLUSION: Mild interstitial infiltrate right upper lung. Patrick Nieto MD Head Magnetic Resonance Angiography 08/05/16 Signed Impressions: Service Date/Time: Friday, August 05, 2016 11:13 - CONCLUSION: Significant improvement in the flow within the right M1 and ALONDRA since the study from 08/04/2016. Pam Sanchez MD Carotid Artery Ultrasound 08/05/16 Signed Impressions: Service Date/Time: Friday, August 05, 2016 12:06 - CONCLUSION: No evidence for hemodynamically significant stenosis. Pam Sanchez MD Brain MRI 08/05/16 Signed Impressions: Service Date/Time: Friday, August 05, 2016 11:13 - CONCLUSION: Acute infarctions on the right side without hemorrhage or mass effect. Pam Sanchez MD Neck CTA 08/04/162210 Signed Impressions: Service Date/Time: Thursday, August 04, 2016 22:18 - CONCLUSION: 1. There is 50-60%% stenosis at the origin of the right internal carotid artery. There is 20-30%% stenosis on the left 2. Extensive calcific plaque involving the cavernous carotid arteries bilaterally Harsh Card MD Head/Neck CTA with Brain Perfusion 08/04/162210 Signed Impressions: Service Date/Time: Thursday, August 04, 2016 22:15 - CONCLUSION: 1. Flow/ volume mismatch involving the posterior right temporal lobe 1. Harsh Card MD Head CTA 08/04/162210 Signed Impressions: Service Date/Time: Thursday, August 04, 2016 22:18 - CONCLUSION: 1. Occlusion of the right M1 segment of the middle cerebral artery. 2. Occlusion of the distal right anterior cerebral artery Harsh Card MD Head CT 08/04/16 Signed Impressions: Service Date/Time: Thursday, August 04, 2016 22:11 - CONCLUSION: 1. No acute findings. Chronic appearing white matter ischemic changes. Tin Romero MD Cerebral Arteriogram 08/04/16 Signed Impressions: Service Date/Time: Friday, August 05, 2016 00:38 - CONCLUSION: Peripheral vascular disease with right iliac occlusion. Patent M1 segment of the right middle cerebral artery with interval resolution of an obstructing thrombus following intravenous thrombolytic therapy. No endovascular thrombectomy performed. Ravi F. Tawanna, MD Objective Remarks drowsy- easily awakens and converse- ff commands, oriented to person and place and family anisocoric - right pupil > left mild facial asymmetry very weak gag reflex neck supple lungs decreased breath sounds irregularly irregular rhythm abdomen-soft, + bowel sounds ov[place] in place extremities trace pretibial edema left sided extremties almost flaccid Urinary Catheter: Yes [place] insert reason: Prolonged Immobilization Date of Insertion: Aug 04, 2016 A/P Assessment and Plan Assessment: This is a 81yF right handed female with history of atrial fibrillation who stopped taking her Coumadin and now is found to have a right MCA CVA with proximal flow cut-off on CTA. She is actively receiving systemic TPA and is being transported now to interventional neuroradiology for potential mechanical thrombectomy-By that time thrombus was lysed and embolectomy not performed. She remains critically ill at this time. We will keep tight BP control with target sbp < 180. Strict q1h neuro checks. monitor for signs of bleeding. Dr. Dc had discussions with Dr. Stacy and Dr. Yuan and Dr. Leal and we are all in agreement with this course of action. Plan by Systems: Neuro: Acute right MCA CVA -- s/p systemic TPA. Went to IR 08/04 for possible mechanical thrombectomy, but thrombus has already lysed -- q1h neuro checks -- stroke precautions -- Neuro following: Dr. Yuan -- ASA per rectum -- PT/OT/ST Resp: -- wean o2 by nc for goal spo2 > 92% -- aggressive pulmonary toilet. CV: Atrial Fibrillation, variable rate 90s Hypertensive Emergency -- will require anticoagulation. hold off for now in the setting of immediate post TPA -- Lipid panel -- 2d echo -- goal SBP < 180 -- nicardipine for goal blood pressure-Wean to DC -- Use PRN hydralazine and Labetalol Renal: -- strict I/Os -- Monitor BUN/creat FEN/GI: Possible Dysphagia -- nursing bedside swallow evaluation. weak gag reflex on exam- high risk for aspiration - Speech therapy ff -- NPO for now. -- ICU electrolyte protocol. -- daily BMP --consider NGT Aspiration Pneumonia -- daily CBC-Leukocytosis most likely stress related. -- start Zosyn for possible aspiration PNA coverage- recheck CBC -- monitor for signs of active bleeding post-TPA Marked leukocytosis -- Hematology consulted Hyperglycemia of Critical Illness -- SSI, med scale, q6h Prophylaxis: -- protonix iv for GI ppx -- SCDs, will restart SQH after TPA, when cleared by neurology Lines: -- piv. Dispo: -- admit to the ICU. She remains critically ill with active large distribution CVA. Heparin SQ for DBT prophylaxis d/w family at bedside- ff closely- possiblity of PEG in the event - to meet nutrtional requirement in the future Mary Mcgrath MD Aug 06, 2016 14:25
--- NOTE | 2016-08-06 14:25 | PD.VS.CON ---
History of Present Illness Chief Complaint: Wound to L medial calf Daughter reported pt has had the wound for 45 days No injury noted/ It had appeared after LE swelling as stated by the daughter Consult Requested by: Dr. Morales History of Present Illness As Written This is an 81yF with acute onset of left-sided weakness at 21:30 Sat night, witnessed by daughter . She was reportedly eating dinner with family when she slumped over. EMS was called. Reportedly she was previously on coumadin for atrial fibrillation but is no longer taking this and is only on aspirin. Her INR on admission is 0.9. Her NIH stroke scale on admission was 13. CT head was negative for acute bleed. CTA head/neck was + for right MCA flow cut off. She is getting systemic TPA in the ER and neurointerventional radiology has been alerted to assist with possible endovascular intervention. (Lis Perez) Past/Family/Social History Past Medical History Atrial fibrillation Hypertension Past Surgical History right eye cataract surgery Social History Current everyday smoker (Lis Perez) Home Medications Reported Medications Metoprolol Succinate ER 24 HR (Toprol XL)50 Mg Tab50 Mg PO DAILY #30 TAB Ref 0 08/05/16 Aspirin (Aspirin Low Dose)81 Mg Chew81 Mg CHEW DAILY Ref 0 08/05/16 Losartan 100 Mg [id number] Mg PO DAILY #30 TAB Ref 0 08/05/16 Levothyroxine 50 Mcg Tab50 Mcg PO DAILY #30 TAB Ref 0 08/05/16 Amlodipine 5 Mg Tab5 Mg PO DAILY #30 TAB Ref 0 08/05/16 Warfarin (Coumadin)2 Mg Tab2 Mg PO DAILY #30 TAB Ref 0 08/05/16 Coded Allergies: Bee Sting (Verified Allergy, Severe, swells, 08/04/16) Review of Systems ROS Limitations: Speech Impaired (Slurred speech noted upon assessment) ( Lis Perez) Physical Exam Vitals/I&O Date Time Temp Pulse Resp B/P Pulse Ox O2 Delivery O2 Flow Rate FiO2 08/06/16 13:00 97.4 104 21 175/84 96 08/06/16 12:00 132 08/06/16 12:00 132 21 173/83 96 08/06/16 11:06 104 21 176/86 96 08/06/16 10:00 130 21 167/87 96 08/06/16 10:00 130 08/06/16 09:00 137 22 190/86 96 08/06/16 08:30 96 Nasal Cannula 2.00 08/06/16 08:00 86 Nasal Cannula 2.00 08/06/16 08:00 144 08/06/16 08:00 98.0 113 21 175/83 94 08/06/16 07:00 102 22 176/94 87 08/06/16 06:00 107 08/06/16 04:00 118 08/06/16 02:00 110 08/06/16 00:00 108 08/05/16 20:56 94 Nasal Cannula 3.50 08/05/16 20:00 92 08/05/16 19:00 96 Nasal Cannula 4.00 08/06/16 08/06/16 08/06/16 07:00 15:00 23:00 Intake Total 0 ml Output Total 550 ml Balance -550 ml Neuro: pt alert and oriented Follows commands Left arm flaccid LLE 2/5 RLE 4/5 strength Neck: no JVD Heart: A Fib Lungs: CTA Abdomen: NT Vascular: Palpable DP Extremities: Noted dry wound measuring 5 X 2.6 to Left medial calf No depth Dry yellow exudate noted (Lis Perez) Laboratory Tests Test 08/06/16 08/06/16 00:30 04:41 Urine Color YELLOW Urine Turbidity CLEAR Urine pH 6.0 Urine Specific [place] 1.029 Urine Protein NEG Urine Glucose (UA) NEG Urine Ketones 10 Urine Occult Blood NEG Urine Nitrite NEG Urine Bilirubin NEG Urine Urobilinogen 2.0 Urine Leukocyte Esterase NEG Urine RBC 1 Urine WBC 1 Urine Mucus FEW Microscopic Urinalysis Comment CATH-CULT NOT IND Urine Opiates Screen NEG Urine Barbiturates Screen NEG Urine Amphetamines Screen NEG Urine Benzodiazepines Screen POS Urine Cocaine Screen NEG Urine Cannabinoids Screen NEG White Blood Count 32.7 Red Blood Count 4.48 Hemoglobin 12.2 Hematocrit 37.1 Mean Corpuscular Volume 82.8 Mean Corpuscular Hemoglobin 27.3 Mean Corpuscular Hemoglobin 33.0 Concent Red Cell Distribution Width 14.5 Platelet Count 271 Mean Platelet Volume 9.3 Neutrophils (%) (Auto) Lymphocytes (%) (Auto) Monocytes (%) (Auto) Eosinophils (%) (Auto) Basophils (%) (Auto) Neutrophils # (Auto) Lymphocytes # (Auto) Monocytes # (Auto) Eosinophils # (Auto) Basophils # (Auto) CBC Comment AUTO DIFF Differential Total Cells 100 Counted Neutrophils % (Manual) 38 Band Neutrophils % 4 Lymphocytes % 56 Monocytes % 2 Neutrophils # (Manual) 13.7 Differential Comment FINAL DIFF MANUAL Smudge Cells PRESENT Platelet Estimate NORMAL Platelet Morphology Comment NORMAL Ovalocytes 1+ Sodium Level 138 Potassium Level 4.0 Chloride Level 103 Carbon Dioxide Level 26.5 Anion Gap 9 Blood Urea Nitrogen 17 Creatinine 0.97 Estimat Glomerular Filtration 55 Rate Random Glucose 128 Calcium Level 8.9 Magnesium Level 2.0 Total Bilirubin 1.5 Aspartate Amino Transf 38 (AST/SGOT) Alanine Aminotransferase 18 (ALT/SGPT) Alkaline Phosphatase 110 Total Protein 7.3 Albumin 3.5 Date/Time Procedure Status Source Growth 08/05/16 23:00 Aerobic Blood Culture - Preliminary Resulted Blood Peripheral NO GROWTH IN 1 DAY 08/05/16 23:00 Anaerobic Blood Culture - Preliminary Resulted Blood Peripheral NO GROWTH IN 1 DAY 08/05/16 06:00 [facility] Batch Blood Peripheral Last 48 hours Impressions Chest X-Ray 08/06/16 0000 Signed Impressions: Service Date/Time: Saturday, August 06, 2016 07:23 - CONCLUSION: Mild interstitial infiltrate right upper lung. Patrick Nieto MD Head Magnetic Resonance Angiography 08/05/16 0000 Signed Impressions: Service Date/Time: Friday, August 05, 2016 11:13 - CONCLUSION: Significant improvement in the flow within the right M1 and ALONDRA since the study from 08/04/2016. Pam Sanchez MD Carotid Artery Ultrasound 08/05/16 0000 Signed Impressions: Service Date/Time: Friday, August 05, 2016 12:06 - CONCLUSION: No evidence for hemodynamically significant stenosis. Pam Sanchez MD Brain MRI 08/05/16 0000 Signed Impressions: Service Date/Time: Friday, August 05, 2016 11:13 - CONCLUSION: Acute infarctions on the right side without hemorrhage or mass effect. Pam Sanchez MD Neck CTA 08/04/162210 Signed Impressions: Service Date/Time: Thursday, August 04, 2016 22:18 - CONCLUSION: 1. There is 50-60%% stenosis at the origin of the right internal carotid artery. There is 20-30%% stenosis on the left 2. Extensive calcific plaque involving the cavernous carotid arteries bilaterally Harsh Card MD Head/Neck CTA with Brain Perfusion 08/04/162210 Signed Impressions: Service Date/Time: Thursday, August 04, 2016 22:15 - CONCLUSION: 1. Flow/ volume mismatch involving the posterior right temporal lobe 1. Harsh Card MD Head CTA 08/04/162210 Signed Impressions: Service Date/Time: Thursday, August 04, 2016 22:18 - CONCLUSION: 1. Occlusion of the right M1 segment of the middle cerebral artery. 2. Occlusion of the distal right anterior cerebral artery Harsh Card MD (Lis Perez) Assessment and Plan Plan Plan TPA completed Improved LLE movement per daughter Pt presents with Palpable DP pulses No surgical intervention at this time Will continue to follow her progression while in patient (Lis Perez) Discharge Planning Pt w/ multi-level occlusive disease (PAD) and L LE wound that is slowly healing according to her children. She is adm for acute CVA for which she rec'd TPA. The wound is shallow and almost has appearance of venous ulcer. However, arterial insufficiency needs to be treated first. Will get ABIs and follow w/ wound care recs. Given appearance of wound, can wait until improved from CVA and likely f/u as outpatient. Discussed with her daughter and son at bedside. Philip Harris MD FACS bolt header [facility] V[facility] at [facility] [phone] (Philip Harris MD) Lis Perez Aug 06, 2016 14:25 Philip Harris MD Aug 06, 2016 16:30
[2016-08-06] MEDS: PANTOPRAZOLE SODIUM 40 MG VIAL IV PUSH SCH (15:16)
[2016-08-06] MEDS: PIPERACIL-TAZO 3.375 GM PREMIX 50 ML IV SCH ×2 (15:16→19:59)
[2016-08-06] MEDS: COLLAGENASE OINT 30 GM TUBE TOPICAL SCH (16:22)
[2016-08-06] MEDS: LABETALOL HCL 100 MG/20 ML VIAL IV PUSH PRN ×2 (16:22→20:18)
--- NOTE | 2016-08-06 19:02 | EC ---
Study Study Date:08/06/2016 STUDY CONCLUSIONS SUMMARY - Left ventricle: The cavity size was normal. Wall thickness was increased in a pattern of mild LVH. There was concentric hypertrophy. Systolic function was normal. The estimated ejection fraction was in the range of 55% to 60%. Wall motion was normal; there were no regional wall motion abnormalities. - Aortic valve: Mild regurgitation. - Mitral valve: Moderately calcified annulus. Moderate regurgitation. - Left atrium: The atrium was moderately dilated. - Right atrium: The atrium was moderately to severely dilated. - Tricuspid valve: Mild-moderate regurgitation. - Pulmonary arteries: PA peak pressure: 69mm Hg (S). If LV function is below 40, please consider prescribing an ACEI or ARB or document rationale for non-use. PROCEDURE DATA STUDY STATUS: Elective. Procedure: Transthoracic echocardiography. Image quality was good. Scanning was performed from the parasternal, apical, and subcostal acoustic windows. Study completion: The patient tolerated the procedure well. Transthoracic echocardiography. M-mode, complete 2D, complete spectral Doppler, and color Doppler. Patient status: Inpatient. CARDIAC ANATOMY LEFT VENTRICLE: The cavity size was normal. Wall thickness was increased in a pattern of mild LVH. There was concentric hypertrophy. Systolic function was normal. The estimated ejection fraction was in the range of 55% to 60%. Wall motion was normal; there were no regional wall motion abnormalities. AORTIC VALVE: Trileaflet; mildly thickened leaflets. Doppler: There was no stenosis. Mild regurgitation. Mean gradient: 9mm Hg (S). Peak gradient: 18mm Hg (S). MITRAL VALVE: Moderately calcified annulus. Doppler: There was no evidence for stenosis. Moderate regurgitation. Mean gradient: 4mm Hg (D). Peak gradient: 14mm Hg (D). LEFT ATRIUM: The atrium was moderately dilated. PULMONIC VALVE: Not well visualized. Doppler: There was no evidence for stenosis. Trace regurgitation. TRICUSPID VALVE: The valve appears to be grossly normal. Doppler: There was no evidence for stenosis. Mild-moderate regurgitation. RIGHT ATRIUM: The atrium was moderately to severely dilated. PERICARDIUM: There was no pericardial effusion. BASIC MEASUREMENTS ADULT NORMAL Left ventricle LV internal dimension, ED, chordal level, 43.6 mm 43-52 PLAX LV internal dimension, ES, chordal level, 33.5 mm 23-38 PLAX Fractional shortening, chordal level, PLAX *23 % >29 LV posterior wall thickness, ED 12.4 mm IVS/LVPW ratio, ED 1.03 <1.3 Ventricular septum Septal thickness, ED 12.8 mm Aortic valve Leaflet separation 15 mm 15-26 Left atrium Anterior-posterior dimension 45 mm Right ventricle RV internal dimension, ED, PLAX 22.7 mm 19-38 BASIC MEASUREMENTS ADULT NORMAL Aortic valve Leaflet separation 15 mm 15-26 Aorta Root diameter, ED 25 mm 20-37 DOPPLER MEASUREMENTS ADULT NORMAL Main pulmonary artery Pressure, S *69 mm Hg =30 Aortic valve Peak velocity, S 211 cm/s Mean velocity, S 135 cm/s VTI, S 29 cm Mean gradient, S 9 mm Hg Peak gradient, S 18 mm Hg Mitral valve Peak E-wave velocity 101 cm/s Mean velocity, D 83.7 cm/s Mean gradient, D 4 mm Hg Peak gradient, D 14 mm Hg Maximal regurgitant velocity 630 cm/s Tricuspid valve Regurgitant peak velocity 351 cm/s Peak RV-RA gradient, S 49 mm Hg Maximal regurgitant velocity 351 cm/s Systemic veins Estimated CVP 20 mm Hg Right ventricle RV pressure, S *69 mm Hg <30 LEGEND: Mean values are shown as u=mean value. Asterisk (*) perez values outside specified normal range. Prepared and signed by Luis Alfredo Bob [id number]
[2016-08-07] VITALS (13 sets, daily range): BP systolic 130–187; BP diastolic 59–96; PULSE 75–110; RESP 19–24; TEMP 96.8–98.6; O2SAT 93–97
[2016-08-07] MEDS: RESP: ALBUTEROL 2.5 MG/IPRATROPIUM 0.5 MG NEB (PRN) INH (02:57)
[2016-08-07] MEDS: LABETALOL HCL 100 MG/20 ML VIAL IV PUSH PRN (03:51)
[2016-08-07] MEDS: PIPERACIL-TAZO 3.375 GM PREMIX 50 ML IV SCH ×4 (04:05→22:58)
[2016-08-07 04:24] LABS: MEAN CELL VOLUME 82.5 FL (80.0-100.0); MEAN CORPUSCULAR HEMOGLOBIN 27.4 PG (27.0-34.0); MEAN CORPUSCULAR HGB CONC 33.2 % (32.0-36.0); PLATELET COUNT 257 TH/MM3 (150-450); RED BLOOD COUNT 4.13 MIL/MM3 (4.00-5.30); RED CELL DISTRIBUTION WIDTH 14.3 % (11.6-17.2); WHITE BLOOD COUNT 33.2 TH/MM3 (4.0-11.0)
[2016-08-07 04:34] LABS: REVIEW FLAG FINAL
[2016-08-07 04:51] LABS: BICARBONATE 23.4 MEQ/L (21.0-32.0); POTASSIUM 3.6 MEQ/L (3.5-5.1)
[2016-08-07] MEDS: CHLORHEXIDINE GLUCONATE 2 % 1 PACK (2 CLOTHS) TOP SCH (05:45)
[2016-08-07] MEDS: INSULIN NovoLIN REGULAR SUPPLEMENTAL SCALE SQ SCH ×3 (05:47→12:00)
[2016-08-07] MEDS: DOCUSATE SODIUM 50 MG/SENNA 8.6 MG TAB PO SCH ×2 (07:50→22:58)
[2016-08-07] MEDS: DEXT 5%-NACL 0.9% 1000 ML INJ 1,000 ML IV SCH (07:50)
[2016-08-07] MEDS: ASPIRIN 300 MG SUPP RECTAL SCH (07:50)
[2016-08-07] MEDS: COLLAGENASE OINT 30 GM TUBE TOPICAL SCH (07:51)
[2016-08-07] MEDS: HEPARIN SODIUM - SQ 10,000 UNITS/ML VIAL SQ SCH ×2 (07:51→21:00)
[2016-08-07] MEDS: SODIUM CHLORIDE 0.9% FLUSH 10 ML FLUSH IV FLUSH SCH ×2 (07:51→22:58)
--- NOTE | 2016-08-07 08:19 | HHI.PR ---
Review/Management Diagnosis/Plan: (1) Acute embolic stroke Plan: rt mca infarcts s/p iv tpa rt mca lorin no longer visible. but persistent left hemiplegia cardioembolic likely rt carotid 50% stenosis pt declined oac in the past. pcp note reviewed recs ok for 5th floor [facility] with tele aspirin watch for aspiration; daily s.t evals. if fails swallow, start tf/nutrition echo-ef 60%, enlarged left atrium, mitral valve calcified p.t./s.t d/w pt/rn (2) HTN (hypertension) Plan: keep <180/100 (3) Afib Plan: was on aspirin (4) Hypothyroid Subjective Subjective Comments No acute events reported No headache No chest pain No dyspnea Active Medications Current Medications Medications (Trade) Dose Ordered Sig/Madina Route Start Time Stop Time Status Last Admin Magnesium Oxide 800 mg 800 mg UNSCH PRN PO 08/04/16 23:00 Magnesium Sulfate 4 gm/Sodium Chloride 100 ml @ 50 mls/hr UNSCH PRN IV 08/04/16 23:00 Magnesium Sulfate 2 gm/Sodium Chloride 100 ml @ 50 mls/hr UNSCH PRN IV 08/04/16 23:00 Potassium Chloride 100 ml @ 50 mls/hr Q2H PRN IV 08/04/16 23:00 Potassium Chloride 100 ml @ 50 mls/hr Q2H PRN IV 08/04/16 23:00 Potassium Chloride 100 ml @ 50 mls/hr Q2H PRN IV 08/04/16 23:00 (KCl 40 Meq Premix Inj) 100 ml @ 25 mls/hr UNSCH PRN IV 08/04/16 23:00 (K-Phos) 2,000 mg Q4H PRN PO 08/04/16 23:00 Potassium Phosphate 2000 mg 2,000 mg UNSCH PRN PO/TUBE 08/04/16 23:00 Potassium Phosphate 30 mmol/ Sodium Chloride 260 ml @ 42 mls/hr UNSCH PRN IV 08/04/16 23:00 (Sodium Phosphate Inj/NS 250 ml Inj) 250 ml @ 42 mls/hr UNSCH PRN IV 08/04/16 23:00 (D50w (Vial) Inj) 25 ml UNSCH PRN IV PUSH 08/04/16 23:00 (NovoLIN R SUPPLEMENTAL SCALE) 1 Q6HR SQ 08/05/16 00:00 (NS Flush) 2 ml UNSCH PRN IV FLUSH 08/04/16 23:00 (NS Flush) 2 ml BID IV FLUSH 08/05/16 09:00 08/07/16 07:51 (Zofran Inj) 4 mg Q6H PRN IV 08/04/16 23:00 (Denise-Colace) 2 tab BID PO 08/05/16 09:00 Miscellaneous Information 1 Q361D XX 08/04/16 23:00 (Chlorhexidine 2% Cloth) 3 pack Taper DAILY@04 TOP 08/05/16 04:00 08/01/17 03:59 08/07/16 05:45 (Chlorhexidine 2% Cloth) 3 pack UNSCH PRN TOP 08/04/16 23:00 (Apresoline Inj) 20 mg Q4H PRN IV PUSH 08/05/16 14:00 08/07/16 01:40 (Trandate Inj) 20 mg Q4H PRN IV PUSH 08/05/16 14:00 08/07/16 03:51 (Aspirin Supp) 300 mg DAILY RECTAL 08/06/16 10:00 08/07/16 07:50 Heparin Sodium (Porcine) 5000 units 5,000 units BID SQ 08/06/16 10:00 08/07/16 07:51 Dextrose/Sodium Chloride 1,000 ml @ 50 mls/hr Q20H IV 08/06/16 11:00 08/07/16 07:50 (Zosyn 3.375 Gm Premix) 50 ml @ 100 mls/hr Q6H IV 08/06/16 15:00 08/07/16 07:50 (Protonix Inj) 40 mg Q24H IV PUSH 08/06/16 15:00 08/06/16 15:16 (Santyl Oint) 1 applic DAILY TOPICAL 08/06/16 17:00 08/28/16 08:59 08/07/16 07:51 Allergies Allergies Coded Allergies Bee Sting (Verified Allergy, Severe, swells, 08/04/16) Review of Systems All other ROS: ROS reviewed as documented in chart Exam I&O / VS 08/06/16 08/06/16 08/07/16 15:00 23:00 07:00 Intake Total 200 ml 420 ml 379 ml Output Total 200 ml 450 ml 550 ml Balance 0 ml -30 ml -171 ml IV Total 200 ml 420 ml 379 ml Output Urine Total 200 ml 450 ml 550 ml # Bowel Movements 1 1 0 Vital Signs Date Time Temp Pulse Resp B/P Pulse Ox O2 Delivery O2 Flow Rate FiO2 08/07/16 07:27 96 Nasal Cannula 2.00 08/07/16 06:00 100 08/07/16 04:00 75 08/07/16 04:00 98.3 75 21 130/59 95 08/07/16 02:00 108 08/07/16 00:00 86 08/07/16 00:00 97.7 86 19 174/96 96 08/06/16 22:00 93 08/06/16 21:00 Nasal Cannula 1.00 08/06/16 20:11 97 Nasal Cannula 2.00 08/06/16 20:00 98.4 101 36 173/84 96 08/06/16 20:00 88 08/06/16 19:00 Nasal Cannula 2.00 08/06/16 18:00 92 18 170/80 96 08/06/16 18:00 92 08/06/16 17:00 92 21 171/79 98 08/06/16 16:00 99.0 114 21 191/86 96 08/06/16 16:00 114 08/06/16 15:01 124 24 179/81 96 08/06/16 14:00 113 08/06/16 14:00 113 21 177/87 96 08/06/16 13:00 97.4 104 21 175/84 96 08/06/16 12:00 132 08/06/16 12:00 132 21 173/83 96 08/06/16 11:06 104 21 176/86 96 08/06/16 10:00 130 21 167/87 96 08/06/16 10:00 130 08/06/16 09:00 137 22 190/86 96 08/06/16 08:30 96 Nasal Cannula 2.00 General: Alert and Oriented, No acute distress Neurologic: Alert Psychiatric: Cooperative Exam Comments ox 3, very dysarthric speech, left facial droop, vff grossly full , eomi, follows, left hemiplegia with some spontaneous/reflexive left leg movement, left sided dystaxia proportional to level of weakness, pin reduced left compared to rt Objective Micro and Labs Laboratory Tests Test 08/07/16 03:18 White Blood Count 33.2 Red Blood Count 4.13 Hemoglobin 11.3 Hematocrit 34.0 Mean Corpuscular Volume 82.5 Mean Corpuscular Hemoglobin 27.4 Mean Corpuscular Hemoglobin 33.2 Concent Red Cell Distribution Width 14.3 Platelet Count 257 Mean Platelet Volume 9.8 Blood Smear Pathologist Review Sodium Level 139 Potassium Level 3.6 Chloride Level 106 Carbon Dioxide Level 23.4 Anion Gap 10 Blood Urea Nitrogen 16 Creatinine 0.85 Estimat Glomerular Filtration 64 Rate Random Glucose 120 Calcium Level 8.7 Date/Time Procedure Status Source Growth 08/05/16 23:00 Aerobic Blood Culture - Preliminary Resulted Blood Peripheral NO GROWTH IN 1 DAY 08/05/16 23:00 Anaerobic Blood Culture - Preliminary Resulted Blood Peripheral NO GROWTH IN 1 DAY 08/05/16 06:00 [place] Batch Blood Peripheral Problem Qualifiers (1) HTN (hypertension): Qualified Code: I10 - Essential hypertension (2) Afib: Qualified Code: I48.2 - Chronic atrial fibrillation (3) Hypothyroid: Qualified Code: E03.9 - Hypothyroidism, unspecified type Freddy Cortez MD Aug 07, 2016 08:19 Freddy Cortez MD Aug 07, 2016 08:19
--- NOTE | 2016-08-07 08:21 | MB ---
cc: FERRELLCITLALY DATE OF CONSULTATION 08/06/2016 DATE OF 1935 REASON FOR CONSULTATION Patient with acute stroke and findings of leukocytosis with increased lymphocyte percentage. CHIEF COMPLAINT Brought to the emergency room after she was found to have altered mental status. HISTORY OF PRESENT ILLNESS Ms. Farley is an 81-year-old female with a past medical history of atrial fibrillation, hypothyroidism, hypertension who was brought to the emergency department after she developed acute left-sided acute left sided weakness. She was found to be slumped over. EMS was called. In the emergency department, she was found to have a NIH stroke scale of 13. She had CT of the head which was negative for any acute bleeding. A CTA of the head and neck showed right MCA flow cut off. She received TPA in the ER. The patient was on Coumadin for atrial fibrillation until March of 2016. After a long discussion with her primary care physician and her desire of discontinuing Coumadin and not wanting to have her INR tested on a regular basis, Coumadin was discontinued. She also declined other anticoagulants. She has a nonhealing wound to her left lower leg. She has a long history of peripheral vascular disease. The patient is currently quite drowsy and has slurred speech. She does not fully answer questions. She does follow commands. I have been consulted to assess chronic leukocytosis in this patient. REVIEW OF SYSTEMS Unable to be completed fully due to the patient's mental status. PAST MEDICAL HISTORY 1. Atrial fibrillation 2. Hypertension 3. Hypothyroidism 4. Peripheral vascular disease PAST SURGICAL HISTORY Right eye cataract surgery. FAMILY HISTORY Unable to be obtained due to the patient's mental status. SOCIAL HISTORY Unable to be obtain. MEDICATIONS 1. Zosyn q6h IV 2. Protonix 40 mg IV q24h 3. Aspirin 300 mg daily 4. Hydralazine 20 mg q4h p.r.n. 5. Labetalol 20 mg q4h IV 6. Senna/docusate two tablets p.o. b.i.d. 7. Magnesium hydroxide 800 mg p.o. p.r.n. 8. Ondansetron 4 mg IV q6h p.r.n. 9. DuoNebs q2h p.r.n. ALLERGIES NO KNOWN DRUG ALLERGIES. PHYSICAL EXAMINATION VITAL SIGNS: Blood pressure is 171/79, pulse is in the 90s, temperature is 99, respiratory rate is 21, O2 sats are 98% on two liters of nasal cannula. GENERAL: An elderly female who is lethargic. HEENT: Anisocoria noted right pupil greater than left. Facial droop. NECK: Supple. No JVD, no bruits. No lymphadenopathy. CHEST: Clear to auscultation bilaterally. CARDIAC: Irregularly irregular heart rhythm. ABDOMEN: Soft and nontender, decreased bowel sounds. EXTREMITIES: Trace bilateral lower extremity edema, left lower extremity weakness, strength 1/5, right lower extremity strength 3/5. LYMPH NODE EXAM: No cervical, supraclavicular, axillary, epitrochlear or inguinal lymphadenopathy on exam. I was then able to palpate liver or spleen. LABORATORY DATA WBC is 32.7, hemoglobin is 12.2, platelet count is 271 and differential shows increased lymphocyte percentage of 56. There is also some reported smudge cells. Sodium is 138, potassium 4.0 and CO2 26.5, BUN 17, creatinine 0.97, GFR 65, calcium is 8.9, magnesium 2, total bilirubin 1.5, AST 38, ALT 18, alk phos 110, TSH is 2.4. IMAGING STUDIES Chest x-ray shows mild interstitial infiltrate right upper lobe. Brain MRI reveals acute infarction on the right side without hemorrhage or mass effect. Additional imaging was also reviewed in the EMR. ASSESSMENT/PLAN This is an 81-year-old female with a past medical history of atrial fibrillation, hypertension, hypothyroidism and peripheral vascular disease who presents with focal symptoms and altered mental status and was found to have an acute right MCA CVA. She is status post static tPA. Hematology has been consulted for chronic leukocytosis with elevated lymphocytes. 1. Leukocytosis with an increase in lymphocyte percentage. There is a possibility of underlying chronic lymphoproliferative disorder. We will review the peripheral smear. We will check LDH. I will order a peripheral blood flow cytometry. I would not recommend any additional leukemia workup. This patient likely has underlying CLL. Additional workup can be completed outpatient. She does not have any associated cytopenias. There is no evidence of splenomegaly. Chronic lymphocytic leukemia can be managed for quite some time without any treatment. I will see this patient in my clinic after she is discharged. 2. Acute right-sided MCA CVA. She is status post tPA, management per primary team. Thank you for allowing me to participate in the care of this patient. I will continue to follow this patient along. MD BONI Mckeon/ELOY /11:11 PM /7:54 AM [email or web address]
--- NOTE | 2016-08-07 13:25 | RADRPT ---
EXAM DATE/TIME: 08/06/2016 00:00 [facility] COMPARISON: ANGIOGRAM, CEREBRAL WO ARCH, August 05, 2016, 0:38. INDICATIONS : Stroke TECHNIQUE: Four-cuff ankle and brachial pressures were obtained. Pulse cuff waveform tracings of the ankles were recorded, and ankle-brachial indices were calculated. PRESSURES (mmHg): Brachial (arm): Right 158 Left iv site Ankle: Right 103 Left 108 ERICA: Right 0.65 Left 0.68 TBI: Right 0.16 Left 0.10 PULSED CUFF WAVEFORMS: Pulse amplitude is significantly blunted bilaterally. CONCLUSION: Decreased ABIs characteristic of mild to moderate arterial insufficiency. Severe decrease TBIs characteristic of advanced small vessel disease. Ravi Stacy MD on August 07, 2016 at 13:21 Board Certified Radiologist. This report was verified electronically.
--- NOTE | 2016-08-07 13:38 | HHI.PR ---
Subjective Remarks awake slurred speech NGT placed failed swallaowing evaluation x 2 Objective Vitals Vital Signs Date Time Temp Pulse Resp B/P Pulse Ox O2 Delivery O2 Flow Rate FiO2 08/07/16 12:00 98.6 93 19 180/84 97 08/07/16 10:00 97 08/07/16 08:00 98.0 97 24 155/69 97 08/07/16 08:00 97 08/07/16 07:27 96 Nasal Cannula 2.00 08/07/16 07:00 97 Nasal Cannula 1.00 08/07/16 06:00 100 08/07/16 04:00 75 08/07/16 04:00 98.3 75 21 130/59 95 08/07/16 02:00 108 08/07/16 00:00 86 08/07/16 00:00 97.7 86 19 174/96 96 08/06/16 22:00 93 08/06/16 21:00 Nasal Cannula 1.00 08/06/16 20:11 97 Nasal Cannula 2.00 08/06/16 20:00 98.4 101 36 173/84 96 08/06/16 20:00 88 08/06/16 19:00 Nasal Cannula 2.00 08/06/16 18:00 92 18 170/80 96 08/06/16 18:00 92 08/06/16 17:00 92 21 171/79 98 08/06/16 16:00 99.0 114 21 191/86 96 08/06/16 16:00 114 08/06/16 15:01 124 24 179/81 96 08/06/16 14:00 113 08/06/16 14:00 113 21 177/87 96 I/O 08/06/16 08/06/16 08/06/16 08/07/16 08/07/16 08/07/16 07:00 15:00 23:00 07:00 15:00 23:00 Intake Total 0 ml 200 ml 420 ml 379 ml Output Total 550 ml 200 ml 450 ml 550 ml Balance -550 ml 0 ml -30 ml -171 ml Intake Oral 0 ml IV Total 200 ml 420 ml 379 ml Output Urine Total 550 ml 200 ml 450 ml 550 ml # Bowel Movements 0 1 1 0 Result Diagram: 08/07/168 08/07/16317 Imaging Last Impressions Chest X-Ray 08/06/16 Signed Impressions: Service Date/Time: Saturday, August 06, 2016 07:23 - CONCLUSION: Mild interstitial infiltrate right upper lung. Patrick Nieto MD Head Magnetic Resonance Angiography 08/05/16 Signed Impressions: Service Date/Time: Friday, August 05, 2016 11:13 - CONCLUSION: Significant improvement in the flow within the right M1 and ALONDRA since the study from 08/04/2016. Pam Sanchez MD Carotid Artery Ultrasound 08/05/16 Signed Impressions: Service Date/Time: Friday, August 05, 2016 12:06 - CONCLUSION: No evidence for hemodynamically significant stenosis. Pam Sanchez MD Brain MRI 08/05/16 Signed Impressions: Service Date/Time: Friday, August 05, 2016 11:13 - CONCLUSION: Acute infarctions on the right side without hemorrhage or mass effect. Pam Sanchez MD Neck CTA 08/04/162210 Signed Impressions: Service Date/Time: Thursday, August 04, 2016 22:18 - CONCLUSION: 1. There is 50-60%% stenosis at the origin of the right internal carotid artery. There is 20-30%% stenosis on the left 2. Extensive calcific plaque involving the cavernous carotid arteries bilaterally Harsh Card MD Head/Neck CTA with Brain Perfusion 08/04/162210 Signed Impressions: Service Date/Time: Thursday, August 04, 2016 22:15 - CONCLUSION: 1. Flow/ volume mismatch involving the posterior right temporal lobe 1. Harsh Card MD Head CTA [id number]/04/162210 Signed Impressions: Service Date/Time: Thursday, August 04, 2016 22:18 - CONCLUSION: 1. Occlusion of the right M1 segment of the middle cerebral artery. 2. Occlusion of the distal right anterior cerebral artery Harsh Card MD Head CT 08/04/16 Signed Impressions: Service Date/Time: Thursday, August 04, 2016 22:11 - CONCLUSION: 1. No acute findings. Chronic appearing white matter ischemic changes. Tin Romero MD Cerebral Arteriogram 08/04/16 Signed Impressions: Service Date/Time: Friday, August 05, 2016 00:38 - CONCLUSION: Peripheral vascular disease with right iliac occlusion. Patent M1 segment of the right middle cerebral artery with interval resolution of an obstructing thrombus following intravenous thrombolytic therapy. No endovascular thrombectomy performed. Ravi Stacy MD Objective Remarks more alert ff commands, oriented to person and place and family anisocoric - right pupil > left mild facial asymmetry very weak gag reflex neck supple lungs decreased breath sounds irregularly irregular rhythm abdomen-soft, + bowel sounds [place] in place extremities trace pretibial edema left sided extremties flaccid Urinary Catheter: Yes [place] insert reason: Prolonged Immobilization Date of Insertion: Aug 04, 2016 A/P Assessment and Plan Assessment: This is a 81yF right handed female with history of atrial fibrillation who stopped taking her Coumadin and now is found to have a right MCA CVA with proximal flow cut-off on CTA. She is actively receiving systemic TPA and is being transported now to interventional neuroradiology for potential mechanical thrombectomy-By that time thrombus was lysed and embolectomy not performed. She remains critically ill at this time. We will keep tight BP control with target sbp < 180. Strict q1h neuro checks. monitor for signs of bleeding. Dr. Dc had discussions with Dr. Stacy and Dr. Yuan and Dr. Leal and we are all in agreement with this course of action. Neuro: Acute right MCA CVA -- s/p systemic TPA. Went to IR 08/04 for possible mechanical thrombectomy, but thrombus has already lysed -- stroke precautions -- Neuro following: Dr. Yuan -- ASA per rectum -- PT/OT/ST Failed swallowing evaluation --NGT placed. TF started -- ff daily- PEG if no progress Resp: -- wean o2 by nc for goal spo2 > 92% -- aggressive pulmonary toilet. CV: Atrial Fibrillation, variable rate 90s Hypertensive Emergency -- will require anticoagulation. hold off for now in the setting of immediate post TPA -- Lipid panel -- 2d echo -- goal SBP < 180 -- nicardipine for goal blood pressure-Wean to DC -- Use PRN hydralazine and Labetalol Renal: -- strict I/Os -- Monitor BUN/creat Aspiration Pneumonia -- daily CBC-Leukocytosis most likely stress related. -- start Zosyn for possible aspiration PNA coverage- recheck CBC -- monitor for signs of active bleeding post-TPA Marked leukocytosis -- Hematology consulted Hyperglycemia of Critical Illness -- SSI, med scale, q6h Leukocytosis- possible CLL -- seen by Dr. Fu Heparin SQ for DVT prophylaxis d/w family at bedside- ff closely- possiblity of PEG in the event - to meet nutrtional requirement in the future Mary Mcgrath MD Aug 07, 2016 13:37 Heparin SQ for DBT prophylaxis d/w family at bedside- ff closely- possiblity of PEG in the event - to meet nutrtional requirement in the future Mary Mcgrath MD Aug 07, 2016 13:37
[2016-08-07] MEDS: PANTOPRAZOLE SODIUM 40 MG VIAL IV PUSH SCH (18:45)
--- NOTE | 2016-08-07 23:33 | PD.ONC.PN ---
Subjective Subjective Remarks remains drowsy but arousable. afebrile has dysphagia and left sided weakness d/w rn Objective Data Date Time Temp Pulse Resp B/P Pulse Ox O2 Delivery O2 Flow Rate FiO2 08/07/16 20:00 97.5 110 20 178/81 93 08/07/16 19:00 Nasal Cannula 3.00 Humidified 08/07/16 18:35 95 Nasal Cannula 2.00 08/07/16 18:00 96 08/07/16 16:00 96.8 99 20 187/84 95 08/07/16 16:00 176/78 08/07/16 12:00 173/91 Automatic Cuff 08/07/16 12:00 98.6 93 19 180/84 97 08/07/16 12:00 88 08/07/16 10:00 97 08/07/16 08:00 98.0 97 24 155/69 97 08/07/16 08:00 97 08/07/16 07:27 96 Nasal Cannula 2.00 08/07/16 07:00 97 Nasal Cannula 1.00 08/07/16 06:00 100 08/07/16 04:00 75 08/07/16 04:00 98.3 75 21 130/59 95 08/07/16 02:00 108 08/07/16 00:00 86 08/07/16 00:00 97.7 86 19 174/96 96 08/07/16 08/07/16 08/07/16 07:00 15:00 23:00 Intake Total 379 ml Output Total 550 ml 500 ml Balance -171 ml -500 ml Result Diagram: 08/07/168 08/07/168 Laboratory Results Laboratory Tests Test 08/07/16 03:18 White Blood Count 33.2 TH/MM3 Red Blood Count 4.13 MIL/MM3 Hemoglobin 11.3 GM/DL Hematocrit 34.0 % Mean Corpuscular Volume 82.5 FL Mean Corpuscular Hemoglobin 27.4 PG Mean Corpuscular Hemoglobin 33.2 % Concent Red Cell Distribution Width 14.3 % Platelet Count 257 TH/MM3 Mean Platelet Volume 9.8 FL Blood Smear Pathologist Review Sodium Level 139 MEQ/L Potassium Level 3.6 MEQ/L Chloride Level 106 MEQ/L Carbon Dioxide Level 23.4 MEQ/L Anion Gap 10 MEQ/L Blood Urea Nitrogen 16 MG/DL Creatinine 0.85 MG/DL Estimat Glomerular Filtration 64 ML/MIN Rate Random Glucose 120 MG/DL Calcium Level 8.7 MG/DL Culture Results Microbiology Date/Time Procedure Status Source Growth 08/05/16 06:00 [place] Batch Blood Peripheral 08/05/16 22:50 Aerobic Blood Culture - Preliminary Resulted Blood Peripheral NO GROWTH IN 2 DAYS 08/05/16 22:50 Anaerobic Blood Culture - Preliminary Resulted Blood Peripheral NO GROWTH IN 2 DAYS 08/05/16 23:00 Aerobic Blood Culture - Preliminary Resulted Blood Peripheral NO GROWTH IN 2 DAYS 08/05/16 23:00 Anaerobic Blood Culture - Preliminary Resulted Blood Peripheral NO GROWTH IN 2 DAYS Administered Medications Medications (Trade) Dose Ordered Sig/[place] Route PRN Reason Start Time Stop Time Status Last Admin Dose Admin Sodium Chloride (NS Flush) 2 ml BID IV FLUSH 08/05/16 09:00 08/07/16 07:51 Senna/Docusate Sodium (Denise-Colace) 2 tab BID PO 08/05/16 09:00 08/07/16 22:58 Chlorhexidine Gluconate (Chlorhexidine 2% Cloth) 3 pack Taper DAILY@04 TOP 08/05/16 04:00 08/01/17 03:59 08/07/16 05:45 Hydralazine HCl (Apresoline Inj) 20 mg Q4H PRN IV PUSH SYS BP GREATER THAN 180 MMHG 08/05/16 14:00 08/07/16 01:40 Labetalol HCl (Trandate Inj) 20 mg Q4H PRN IV PUSH SYS BP GREATER THAN 180 MMHG 08/05/16 14:00 08/07/16 03:51 Aspirin (Aspirin Supp) 300 mg DAILY RECTAL 08/06/16 10:00 08/07/16 07:50 Heparin Sodium (Porcine) 5000 units 5,000 units BID SQ 08/06/16 10:00 08/07/16 07:51 Dextrose/Sodium Chloride 1,000 ml @ 50 mls/hr Q20H IV 08/06/16 11:00 08/07/16 07:50 Piperacillin Sod/ Tazobactam Sod (Zosyn 3.375 Gm Premix) 50 ml @ 100 mls/hr Q6H IV 08/06/16 15:00 08/07/16 22:58 Pantoprazole Sodium (Protonix Inj) 40 mg Q24H IV PUSH 08/06/16 15:00 08/07/16 18:45 Collagenase (Santyl Oint) 1 applic DAILY TOPICAL 08/06/16 17:00 08/28/16 08:59 08/07/16 07:51 Objective Remarks GENERAL: acutely ill, facial droop SKIN: Warm and dry. NECK: Supple, trachea midline. No JVD or lymphadenopathy. LYMPHATIC: No adenopathy. CARDIOVASCULAR: Regular rate and rhythm without murmurs. RESPIRATORY: Breath sounds equal bilaterally. No accessory muscle use. GASTROINTESTINAL: Abdomen soft, non-tender, nondistended. EXTREMITIES: No cyanosis, or edema. Left sided weakness Assessment/Plan Problem List: (1) Acute embolic stroke Status: Acute (2) Leukocytosis Status: Acute (3) Lymphocytosis Status: Acute Assessment 81-year-old female with a past medical history of atrial fibrillation, hypertension, hypothyroidism and peripheral vascular disease who presents with focal symptoms and altered mental status and was found to have an acute right MCA CVA. She is status post static tPA. Hematology was consulted for chronic leukocytosis with elevated lymphocytes. 1. Leukocytosis with an increase in lymphocyte percentage. - peripheral smear strongly suggestive for CLL - Send for flow cytometry - Check LDH, Haptoglobin, SPEP and quantitative immunoglobulins - abdominal U/S to evaluate for splenomegaly - No associated cytopenias. Chronic lymphocytic leukemia can be managed for quite some time without any treatment. - Outpatient f/u after discharge 2. Acute right-sided MCA CVA. She is status post tPA, management per primary team. Alon Fu MD Aug 07, 2016 23:33
--- NOTE | 2016-08-07 23:57 | RADRPT ---
EXAM DATE/TIME: 08/07/2016 23:44 [facility] COMPARISON: No previous studies available for comparison. INDICATIONS : Post NG tube placement. MEDICAL HISTORY : Hypertension. Stroke. Carcinoma, squamous cell SURGICAL HISTORY : Cataracts. ENCOUNTER: Initial ACUITY: 1 day PAIN SCORE: 3/10 LOCATION: Left abdomen FINDINGS: Examination of the abdomen demonstrates a normal bowel gas pattern. No free air is identified. No o rganomegaly is evident. Osseous structures are intact. CONCLUSION: Normal examination. Nasogastric is coiled within the stomach. Tip is in the distal stomach. Dusty Gamino MD on August 07, 2016 at 23:55 Board Certified Radiologist. This report was verified electronically.
[2016-08-08] VITALS (8 sets, daily range): BP systolic 136–184; BP diastolic 74–100; PULSE 84–99; RESP 18–20; TEMP 95.6–97.6; O2SAT 94–97
[2016-08-08] MEDS: PIPERACIL-TAZO 3.375 GM PREMIX 50 ML IV SCH ×4 (03:00→21:44)
[2016-08-08] MEDS: CHLORHEXIDINE GLUCONATE 2 % 1 PACK (2 CLOTHS) TOP SCH (04:00)
[2016-08-08] MEDS: INSULIN NovoLIN REGULAR SUPPLEMENTAL SCALE SQ SCH ×4 (06:00→15:55)
[2016-08-08 06:34] LABS: HEMATOCRIT 35.4 % (35.0-46.0); MEAN CORPUSCULAR HEMOGLOBIN 26.4 PG (27.0-34.0); MEAN CORPUSCULAR HGB CONC 31.8 % (32.0-36.0); PLATELET COUNT 236 TH/MM3 (150-450); RED BLOOD COUNT 4.26 MIL/MM3 (4.00-5.30); RED CELL DISTRIBUTION WIDTH 14.4 % (11.6-17.2); REVIEW FLAG FINAL; WHITE BLOOD COUNT 28.8 TH/MM3 (4.0-11.0)
[2016-08-08 06:54] LABS: BICARBONATE 28.3 MEQ/L (21.0-32.0); POTASSIUM 3.4 MEQ/L (3.5-5.1)
[2016-08-08 06:55] LABS: TOTAL PROTEIN SPE 6.5 GM/DL (6.0-7.6)
[2016-08-08] MEDS: SODIUM CHLORIDE 0.9% FLUSH 10 ML FLUSH IV FLUSH SCH ×2 (09:00→21:00)
[2016-08-08] MEDS: COLLAGENASE OINT 30 GM TUBE TOPICAL SCH (09:00)
[2016-08-08] MEDS: DOCUSATE SODIUM 50 MG/SENNA 8.6 MG TAB PO SCH (09:53)
[2016-08-08] MEDS: ASPIRIN 300 MG SUPP RECTAL SCH (09:53)
[2016-08-08] MEDS: DEXT 5%-NACL 0.9% 1000 ML INJ 1,000 ML IV SCH ×2 (09:54→23:00)
[2016-08-08] MEDS: HEPARIN SODIUM - SQ 10,000 UNITS/ML VIAL SQ SCH ×2 (09:55→21:44)
--- NOTE | 2016-08-08 10:24 | RADRPT ---
EXAM DATE/TIME: 08/08/2016 08:55 [facility] COMPARISON: No previous studies available for comparison. INDICATIONS : Chronic lymphocytic leukemia. Evaluate for splenomegaly and lymphadenopathy. MEDICAL HISTORY : Fib. Hypertension. Hypothyroid. PVD. SURGICAL HISTORY : Cataract. ENCOUNTER: Initial ACUITY: 1 day PAIN SCORE: 0/10 LOCATION: Bilateral upper quadrant MEASUREMENTS: LIVER: 14.7 cm length COMMON DUCT: 3 mm RIGHT KIDNEY: 11.1 x 5.4 x 4.7 cm LEFT KIDNEY: 11.3 x 4.1 x 5.6 cm SPLEEN: 9.1 cm length AORTA: 2.1cm maximal FINDINGS: There is evidence of a small left pleural effusion. LIVER: Normal echotexture without focal lesion or ductal dilatation. Hepatopedal flow seen in the portal ve in. COMMON DUCT: No intraluminal mass or stone visualized. GALLBLADDER: Contains no stones, demonstrates no wall thickening or pericholecystic fluid. PANCREAS: The visualized portions are within normal limits. RIGHT KIDNEY: No hydronephrosis, stone or mass. There are several renal cysts, the largest is in the lower pole selina suring 2.0 x 2.3 cm; this cyst is anechoic. The 2nd lesion is located in the midpole measures 1.2 x 1.0 x 1.0 cm and contains homogeneous low-level internal echoes and demonstrates only mild through tr ansmission. LEFT KIDNEY: No hydronephrosis, stone or mass. There is a small isoechoic excrescence from the midpole measuring 7 x 6 mm which does demonstrate some through transmission, probably representing a small complicated c yst. A small amount of perinephric fluid is present in the midpole, possibly subcapsular. SPLEEN: No focal lesion. AORTA: Irregular lumen margins suggest diffuse arteriosclerotic disease. Maximum dimension is within normal limits. IVC: Within normal limits. CONCLUSION: 1. The spleen is normal size. 2. Small left pleural effusion. 3. Bilateral cystic lesions in the liver, with one lesion in the midpole the right side measure 1.2 c m containing low level internal echoes and a 7 mm isoechoic lesion on the left side. Most of these p robably represent complicated cysts. 4. Small amount of perinephric, possibly subcapsular, fluid adjacent to the midpole of the left kidne y. 5. Maximum dimension of the abdominal aorta is within normal limits, but luminal irregularity to sugg est arteriosclerotic disease. Fernando Radford MD on August 08, 2016 at 10:17 Board Certified Radiologist. This report was verified electronically.
[2016-08-08] MEDS ORDERED: cloNIDine HCL 0.1 MG TAB PO PRN (12:00)
[2016-08-08] MEDS ORDERED: POTASSIUM CHLORIDE 10 MEQ CONTROLLED RELEASE TAB PO ONE (12:00)
--- NOTE | 2016-08-08 13:29 | PD.VS.PN ---
Subjective Subjective/Hospital Course Pt awake and more alert this afternoon Speech is slurred with left sided weakness Objective Vitals/I&O Date Time Temp Pulse Resp B/P Pulse Ox O2 Delivery O2 Flow Rate FiO2 08/08/16 12:33 96 Nasal Cannula 2.00 08/08/16 12:00 97.6 84 20 136/81 96 08/08/16 11:30 Nasal Cannula 3.00 Humidified 08/08/16 08:00 97.3 99 20 184/85 97 Manual Cuff/Auscultation 08/08/16 04:00 97.2 85 20 184/87 95 08/08/16 00:00 95.6 97 20 146/74 94 08/07/16 21:00 95 Nasal Cannula 3.00 08/07/16 21:00 83 08/07/16 20:00 97.5 110 20 178/81 93 08/07/16 19:00 Nasal Cannula 3.00 Humidified 08/07/16 18:35 95 Nasal Cannula 2.00 08/07/16 18:00 96 08/07/16 16:00 96.8 99 20 187/84 95 08/07/16 16:00 176/78 08/08/16 08/08/16 08/08/16 07:00 15:00 23:00 Output Total 375 ml Balance -375 ml Physical Exam GENERAL: Awake and alert, pleasant 81/F with noted slurred speech and left sided weakness SKIN: Warm and dry. Ulcer to Left medial aspect improving since last assessment with new tissue growth CARDIOVASCULAR: Regular rate and rhythm without murmurs, gallops, or rubs. RESPIRATORY: Breath sounds equal bilaterally. No accessory muscle use. GASTROINTESTINAL: Abdomen soft, NG tube placed MUSCULOSKELETAL: No cyanosis, or edema. LLE responds to painful stimuli/ involuntary movements noted. RLE/RUE 4/5 LUE 0/5 LLE 3/5 Laboratory Laboratory Tests Test 08/08/16 05:51 White Blood Count 28.8 Red Blood Count 4.26 Hemoglobin 11.2 Hematocrit 35.4 Mean Corpuscular Volume 83.0 Mean Corpuscular Hemoglobin 26.4 Mean Corpuscular Hemoglobin 31.8 Concent Red Cell Distribution Width 14.4 Platelet Count 236 Mean Platelet Volume 9.4 Haptoglobin 195 Sodium Level 140 Potassium Level 3.4 Chloride Level 103 Carbon Dioxide Level 28.3 Anion Gap 9 Blood Urea Nitrogen 16 Creatinine 0.87 Estimat Glomerular Filtration 62 Rate Random Glucose 96 Calcium Level 8.6 Lactate Dehydrogenase 236 Total Protein 6.5 Date/Time Procedure Status Source Growth 08/05/16 23:00 Aerobic Blood Culture - Preliminary Resulted Blood Peripheral NO GROWTH IN 3 DAYS 08/05/16 23:00 Anaerobic Blood Culture - Preliminary Resulted Blood Peripheral NO GROWTH IN 3 DAYS 08/05/16 06:00 [place] Batch Blood Peripheral Imaging Last 48 hours Impressions Abdomen Ultrasound 08/08/16 0000 Signed Impressions: Service Date/Time: Monday, August 08, 2016 08:55 - CONCLUSION: 1. The spleen is normal size. 2. Small left pleural effusion. 3. Bilateral cystic lesions in the liver, with one lesion in the midpole the right side measure 1.2 cm containing low level internal echoes and a 7 mm isoechoic lesion on the left side. Most of these probably represent complicated cysts. 4. Small amount of perinephric, possibly subcapsular, fluid adjacent to the midpole of the left kidney. 5. Maximum dimension of the abdominal aorta is within normal limits, but luminal irregularity to suggest arteriosclerotic disease. Fernando Radford MD Abdomen X-Ray 08/07/16 0000 Signed Impressions: Service Date/Time: Sunday, August 07, 2016 23:44 - CONCLUSION: Normal examination. Nasogastric is coiled within the stomach. Tip is in the distal stomach. Dusty Gamino MD Assessment and Plan Plan Plan Will continue to follow her progression while in patient Improved ulcer to LLE Continue Santyl daily treatment Will see patient in our Out Patient Clinic in 1M Lis CARRERO [facility] [phone] Discharge Planning From a Vascular standpoint OK for D/C and will follow up in 1M in our OPC Appointment time given to daughter Lis Perez MAGAN Aug 08, 2016 13:28
--- NOTE | 2016-08-08 14:27 | HHI.PR ---
Subjective Remarks failed repeated swallowing evaluation tube feedings started meds throught NGT for BP control Objective Vitals Vital Signs Date Time Temp Pulse Resp B/P Pulse Ox O2 Delivery O2 Flow Rate FiO2 08/08/16 12:33 96 Nasal Cannula 2.00 08/08/16 12:00 97.6 84 20 136/81 96 08/08/16 11:30 Nasal Cannula 3.00 Humidified 08/08/16 08:00 97.3 99 20 184/85 97 Manual Cuff/Auscultation 08/08/16 04:00 97.2 85 20 184/87 95 08/08/16 00:00 95.6 97 20 146/74 94 08/07/16 21:00 95 Nasal Cannula 3.00 08/07/16 21:00 83 08/07/16 20:00 97.5 110 20 178/81 93 08/07/16 19:00 Nasal Cannula 3.00 Humidified 08/07/16 18:35 95 Nasal Cannula 2.00 08/07/16 18:00 96 08/07/16 16:00 96.8 99 20 187/84 95 08/07/16 16:00 176/78 I/O 08/07/16 08/07/16 08/07/16 08/08/16 08/08/16 08/08/16 07:00 15:00 23:00 07:00 15:00 23:00 Intake Total 379 ml Output Total 550 ml 500 ml 375 ml Balance -171 ml -500 ml -375 ml IV Total 379 ml Output Urine Total 550 ml 500 ml 375 ml # Bowel Movements 0 0 Result Diagram: 08/08/16 0551 08/08/16 0551 Imaging Last Impressions Abdomen Ultrasound 08/08/16 0000 Signed Impressions: Service Date/Time: Monday, August 08, 2016 08:55 - CONCLUSION: 1. The spleen is normal size. 2. Small left pleural effusion. 3. Bilateral cystic lesions in the liver, with one lesion in the midpole the right side measure 1.2 cm containing low level internal echoes and a 7 mm isoechoic lesion on the left side. Most of these probably represent complicated cysts. 4. Small amount of perinephric, possibly subcapsular, fluid adjacent to the midpole of the left kidney. 5. Maximum dimension of the abdominal aorta is within normal limits, but luminal irregularity to suggest arteriosclerotic disease. Fernando Radford MD Abdomen X-Ray 08/07/16 Signed Impressions: Service Date/Time: Sunday, August 07, 2016 23:44 - CONCLUSION: Normal examination. Nasogastric is coiled within the stomach. Tip is in the distal stomach. Dusty Gamino MD Chest X-Ray 08/06/16 Signed Impressions: Service Date/Time: Saturday, August 06, 2016 07:23 - CONCLUSION: Mild interstitial infiltrate right upper lung. Patrick Nieto MD Head Magnetic Resonance Angiography 08/05/16 Signed Impressions: Service Date/Time: Friday, August 05, 2016 11:13 - CONCLUSION: Significant improvement in the flow within the right M1 and ALONDRA since the study from 08/04/2016. Pam Sanchez MD Carotid Artery Ultrasound 08/05/16 Signed Impressions: Service Date/Time: Friday, August 05, 2016 12:06 - CONCLUSION: No evidence for hemodynamically significant stenosis. Pam Sanchez MD Brain MRI 08/05/16 Signed Impressions: Service Date/Time: Friday, August 05, 2016 11:13 - CONCLUSION: Acute infarctions on the right side without hemorrhage or mass effect. Pam Sanchez MD Neck CTA 08/04/162210 Signed Impressions: Service Date/Time: Thursday, August 04, 2016 22:18 - CONCLUSION: 1. There is 50-60%% stenosis at the origin of the right internal carotid artery. There is 20-30%% stenosis on the left 2. Extensive calcific plaque involving the cavernous carotid arteries bilaterally Harsh Card MD Head/Neck CTA with Brain Perfusion 08/04/162210 Signed Impressions: Service Date/Time: Thursday, August 04, 2016 22:15 - CONCLUSION: 1. Flow/ volume mismatch involving the posterior right temporal lobe 1. Harsh Card MD Head CTA [id number]/04/162210 Signed Impressions: Service Date/Time: Thursday, August 04, 2016 22:18 - CONCLUSION: 1. Occlusion of the right M1 segment of the middle cerebral artery. 2. Occlusion of the distal right anterior cerebral artery Harsh Card MD Head CT 08/04/16 Signed Impressions: Service Date/Time: Thursday, August 04, 2016 22:11 - CONCLUSION: 1. No acute findings. Chronic appearing white matter ischemic changes. Tin Romero MD Cerebral Arteriogram 08/04/16 0000 Signed Impressions: Service Date/Time: Friday, August 05, 2016 00:38 - CONCLUSION: Peripheral vascular disease with right iliac occlusion. Patent M1 segment of the right middle cerebral artery with interval resolution of an obstructing thrombus following intravenous thrombolytic therapy. No endovascular thrombectomy performed. Ravi Stacy MD Objective Remarks more alert ff commands, oriented to person and place and family anisocoric - right pupil > left mild facial asymmetry very weak gag reflex neck supple lungs decreased breath sounds irregularly irregular rhythm abdomen-soft, + bowel sounds [place] in place extremities trace pretibial edema left sided extremties flaccid Urinary Catheter: Yes [place] insert reason: Prolonged Immobilization Date of Insertion: Aug 04, 2016 A/P Assessment and Plan Assessment: This is a 81yF right handed female with history of atrial fibrillation who stopped taking her Coumadin and now is found to have a right MCA CVA with proximal flow cut-off on CTA. She is actively receiving systemic TPA and is being transported now to interventional neuroradiology for potential mechanical thrombectomy-By that time thrombus was lysed and embolectomy not performed. She remains critically ill at this time. We will keep tight BP control with target sbp < 180. Strict q1h neuro checks. monitor for signs of bleeding. Dr. Dc had discussions with Dr. Stacy and Dr. Yuan and Dr. Leal and we are all in agreement with this course of action. Neuro: Acute right MCA CVA -- s/p systemic TPA. Went to IR 08/04 for possible mechanical thrombectomy, but thrombus has already lysed -- stroke precautions -- Neuro following: Dr. Yuan -- ASA -- PT/OT/ST Failed swallowing evaluation --NGT placed. TF started toelrated -- ff daily- d/w family- may need PEG if no progess with swallowing evaluation - expressed understanding Resp: -- wean o2 by nc for goal spo2 > 92% -- aggressive pulmonary toilet. CV: Atrial Fibrillation, variable rate 90s- improved Hypertensive Emergency -- will require anticoagulation. hold off for now in the setting of immediate post TPA -- Lipid panel -- 2d echo- unremarkable Renal: -- strict I/Os -- Monitor BUN/creat Aspiration Pneumonia -- daily CBC-Leukocytosis -- Zosyn for possible aspiration PNA coverage-ff CBC -- monitor for signs of active bleeding post-TPA CLL - Marked leukocytosis -- Hematology ff - additonal blood works ordered Hyperglycemia of Critical Illness -- SSI, med scale, q6h Hypokalemia -replace per PEG 40 meq x 1 Heparin SQ for DVT prophylaxis d/w family at bedside- ff closely- possiblity of PEG in the event - to meet nutrtional requirement in the future Mary Mcgrath MD Aug 08, 2016 14:27
[2016-08-08] MEDS: PANTOPRAZOLE SODIUM 40 MG VIAL IV PUSH SCH (15:41)
[2016-08-08] MEDS: METOPROLOL TARTRATE 25 MG TAB NG SCH ×2 (15:42→21:44)
--- NOTE | 2016-08-08 17:36 | PD.CONS ---
Consult Service Palliative Care Consult Requested By Dr. Mcgrath . Primary Care Physician Rosalie Almazan MD . Reason for Consultation a. To assist with evaluation and management of symptoms including: Dysphagia, anxiety b. To assist medical decision maker(s) with: better understanding of current medical conditions; weighing benefits/burdens of medical treatment options; making medical treatment decisions. . HPI History of Present Illness This 81-year-old female, with a past history of chronic atrial fibrillation, hypertension, and peripheral vascular disease, decided to stop her Coumadin and just take aspirin daily about 6 weeks ago. The patient's daughter attended a recent appointment with the patient and her primary doctor, and the patient was determined to not take Coumadin. The patient has been declining slowly over the past year, losing some of her strength and not being able to ambulate as far as she could a year or 2 ago. On the day of admission, the patient was having dinner with other family members and she suddenly developed difficulty speaking and weakness involving her left side. She was brought to the hospital as a "Stroke Alert" and was assessed in the emergency department. Findings included: * Alert, slurred speech, left hemiplegia * Temp 97.3, pulse 83, respirations 16, blood pressure 173/89 * White count 34.6, hemoglobin 11.4 * Sodium 140, creatinine 0.9 * EKG: Atrial fib/flutter * CT brain scan with some hypodensity in the right cerebellar area but no acute findings * CTA of the head revealed right M1 segment of the MCA unoccluded, and the right ALONDRA also occlude distally * CTA of the neck revealed 50-60% stenosis of the right internal carotid artery TPA was administered, and the patient was taken to interventional radiology. The MCA clot was noted to be lysed, so no embolectomy was undertaken. The patient was admitted to intensive surgical care. In the 3 days since then, the patient has continued to have left hemiplegia, her speech is somewhat slurred, and Speech Therapy has evaluated her and determined that she has severe oral pharyngeal dysphagia, recommending that she remain NPO. The patient has an NG tube and is receiving artificial nutrition, but when her doctors talked about PEG tube the patient indicated she would refuse that. The patient has a living will that says she would not want to be kept alive artificially, and she has told her family that quality of life is important for her. Palliative Care was consulted to assist with symptom management, and to enter into discussions with the patient and family regarding her current illnesses, the prognosis, and the benefits and burdens of the various options going forward. . Function/Cognitive Trajectory The patient was living and functioning independently prior to this stroke. She was walking up to 5 miles per day until the past year or so, and the distance has been decreasing because of slowly declining strength. . Review of Systems Constitutional: DENIES: Fever, Weight gain, Weight loss Endocrine: DENIES: Polyuria Eyes: DENIES: Eye inflammation Ears, nose, mouth, throat: DENIES: Epistaxis Respiratory: COMPLAINS OF: Cough (since the stroke), DENIES: Shortness of breath Cardiovascular: DENIES: Dyspnea on Exertion, Lower Extremity Edema Gastrointestinal: COMPLAINS OF: Difficulty Swallowing, DENIES: Bloody stools, Constipation, Diarrhea, Nausea Genitourinary: DENIES: Hematuria Musculoskeletal: DENIES: Back pain Integumentary: COMPLAINS OF: Non-healing sores (left lower leg), DENIES: Rash Hematologic/Lymphatics: DENIES: Lymphadenopathy Immunologic/Allergic: DENIES: Urticaria Neurologic: COMPLAINS OF: Localized weakness (left side), Speech Problems, DENIES: Seizures Psychiatric: DENIES: Confusion, Hallucinations, Agitation Past Family Social History Coded Allergies: Bee Sting (Verified Allergy, Severe, swells, 08/04/16) Past Medical History * Acute right MCA stroke * Chronic atrial fibrillation * Peripheral vascular disease * Hypertension * Hypothyroidism * Hyperlipidemia * Left leg nonhealing ulcer . Past Surgical History * Cataracts . Reported Medications Norvasc (Amlodipine Besylate) 5 Mg Tab 5 Mg PO DAILY Fish Oil 1,000 Mg Cap 1,000 Mg PO DAILY Toprol Xl (Metoprolol Succinate) 25 Mg Tabcr 50 Mg PO DAILY Cozaar (Losartan Potassium) 100 Mg Tab 100 Mg PO DAILY Synthroid (Levothyroxine Sodium) 25 Mcg Tab 25 Mcg PO DAILY Lanoxin (Digoxin) 0.25 Mg Tab 0.25 Mg PO DAILY Coumadin (Warfarin Sodium) 2.5 Mg Tab 2 Mg PO DAILY . Current Medications Medications (Trade) Dose Ordered Sig/Madina Route Start Time Stop Time Status Last Admin (D50w (Vial) Inj) 25 ml UNSCH PRN IV PUSH 08/04/16 23:00 (NovoLIN R SUPPLEMENTAL SCALE) 1 Q6HR SQ 08/05/16 00:00 (NS Flush) 2 ml UNSCH PRN IV FLUSH 08/04/16 23:00 (NS Flush) 2 ml BID IV FLUSH 08/05/16 09:00 08/08/16 09:00 (Zofran Inj) 4 mg Q6H PRN IV 08/04/16 23:00 Miscellaneous Information 1 Q361D XX 08/04/16 23:00 (Chlorhexidine 2% Cloth) 3 pack Taper DAILY@04 TOP 08/05/16 04:00 08/01/17 03:59 08/07/16 05:45 (Chlorhexidine 2% Cloth) 3 pack UNSCH PRN TOP 08/04/16 23:00 (Apresoline Inj) 20 mg Q4H PRN IV PUSH 08/05/16 14:00 08/07/16 01:40 (Trandate Inj) 20 mg Q4H PRN IV PUSH 08/05/16 14:00 08/07/16 03:51 Heparin Sodium (Porcine) 5000 units 5,000 units BID SQ 08/06/16 10:00 08/08/16 09:55 Dextrose/Sodium Chloride 1,000 ml @ 50 mls/hr Q20H IV 08/06/16 11:00 08/08/16 09:54 (Zosyn 3.375 Gm Premix) 50 ml @ 100 mls/hr Q6H IV 08/06/16 15:00 08/08/16 15:41 (Protonix Inj) 40 mg Q24H IV PUSH 08/06/16 15:00 08/08/16 15:41 (Santyl Oint) 1 applic DAILY TOPICAL 08/06/16 17:00 08/28/16 08:59 08/08/16 09:00 (Lopressor) 25 mg Q8HR NG 08/08/16 14:00 08/08/16 15:42 (Denise-Colace) 2 tab BID NG 08/08/16 21:00 (Aspirin) 325 mg DAILY NG 08/09/16 09:00 (Catapres) 0.1 mg Q6H PRN NG 08/08/16 12:00 Family History Patient's mother at age 84 of a stroke, and multiple maternal aunts and uncles also had strokes. The patient's father of an [place]. . Substance Use Tobacco: She has smoked for many years, one pack per day. Alcohol: Occasional alcohol Prescription med abuse: None Illicits: None . Psychosocial History The patient was born and raised in [place], but moved to [place] about 30 years ago. She was once, about 10 years ago. She has 2 sons and 1 daughter. 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 . Spiritual/Cultural Factors The patient is not a spiritual or mormonism person, and has not requested faculty head visit yet. . Living Will: Copy in medical record Health Care Surrogate: Copy in medical record Health Care Surrogate(s): The patient's 2 sons are the primary and secondary HCS's. . Documented care wishes: Patient has a living will that states she does not want to be artificially prolonged if she has a terminal or end-stage condition. . Today's verbally stated goals: The patient was able to talk about how important quality of life is for her, and acknowledged that she had refused a PEG tube. She is uncertain how long she wants to keep the NG tube with artificial nutrition, and is uncertain whether she would want hospice services if she elects to stop all artificial nutrition. She understands that the option for possibly attempting rehab is available. She wants to talk more about this with her family. . Family/friends goals: The patient's daughter says that the family wants to support the patient's wishes . Ethical and Legal Issues There are no ethical issues that would impact her care or decision-making at this time. Although the patient does have some speech difficulty, she is oriented and has a good understanding of her medical conditions. She has capacity for decision- making. She has designated her 2 sons as HCS's when she loses capacity. . Physical Exam Vital Signs Date Time Temp Pulse Resp B/P Pulse Ox O2 Delivery O2 Flow Rate FiO2 08/08/16 12:33 96 Nasal Cannula 2.00 08/08/16 12:00 97.6 84 20 136/81 96 08/08/16 11:30 Nasal Cannula 3.00 Humidified 08/08/16 08:00 97.3 99 20 184/85 97 Manual Cuff/Auscultation 08/08/16 04:00 97.2 85 20 184/87 95 08/08/16 00:00 95.6 97 20 146/74 94 08/07/16 21:00 95 Nasal Cannula 3.00 08/07/16 21:00 83 08/07/16 20:00 97.5 110 20 178/81 93 08/07/16 19:00 Nasal Cannula 3.00 Humidified 08/07/16 18:35 95 Nasal Cannula 2.00 08/07/16 18:00 96 08/07/16 08/08/16 19:00 07:00 Output Total 500 ml 375 ml Balance -500 ml -375 ml Output Urine Total 500 ml 375 ml # Bowel Movements 0 Exam CONSTITUTIONAL/GENERAL: This is an adequately nourished patient, in no apparent distress. TUBES/LINES/DRAINS: NG tube, peripheral IV, nasal cannula oxygen SKIN: No jaundice, rashes, or lesions. Skin tears on left knee, bandage on the lower left leg. Skin temperature appropriate. Not diaphoretic. HEAD: Atraumatic. Normocephalic. EYES: Pupils equal and round and reactive. Extraocular motions intact. No scleral icterus. No injection or drainage. Fundi not examined. ENT: Hearing grossly normal. Nose without bleeding or purulent drainage. Throat without visible erythema, exudates, masses, or lesions. NECK: Trachea midline. Supple, nontender. No palpable thyroid enlargement or nodularity. CARDIOVASCULAR: Regular rate and rhythm with grade 2 systolic murmur. No JVD. Peripheral pulses could not be palpated d.p. Or p.t. RESPIRATORY/CHEST: Symmetric, unlabored respirations. Clear to auscultation. Breath sounds equal bilaterally. A couple rhonchi are present in each lung. GASTROINTESTINAL: Abdomen soft, non-tender, nondistended. No hepato-splenomegaly , or palpable masses. No guarding. Bowel sounds present. GENITOURINARY: Without palpable bladder distension. Epstein catheter in place. MUSCULOSKELETAL: Extremities without clubbing, cyanosis, or edema. No joint tenderness or effusion noted. No calf tenderness. No mottling or clubbing. LYMPHATICS: No palpable cervical or supraclavicular adenopathy. NEUROLOGICAL: Awake and alert. Left arm and leg flaccid, hemiplegia. Follows commands. Cognitively sharp. Moves all extremities. PSYCHIATRIC: No obvious anxiety/depression. No apparent hallucinations or other psychotic thought process. . Diagnostic Tests Laboratory Laboratory Tests Test 408/06/16 08/07/16 08/08/16 00:30 04:41 03:18 05:51 Urine Color YELLOW (YELLW/STRAW) Urine Turbidity CLEAR (CLEAR) Urine pH 6.0 (5.0-8.5) Urine Specific [place] 1.029 (1.002-1.035) Urine Protein NEG mg/dL (NEG-TRACE) Urine Glucose (UA) NEG mg/dL (NEG) Urine Ketones 10 mg/dL (NEG) Urine Occult Blood NEG (NEG) Urine Nitrite NEG (NEG) Urine Bilirubin NEG (NEG) Urine Urobilinogen 2.0 MG/DL (LESS THAN 2.0) Urine Leukocyte Esterase NEG (NEG) Urine RBC 1 /hpf (0-3) Urine WBC 1 /hpf (0-5) Urine Mucus FEW /lpf (OCC) Microscopic Urinalysis Comment CATH-CULT NOT IND Urine Opiates Screen NEG (NEG) Urine Barbiturates Screen NEG (NEG) Urine Amphetamines Screen NEG (NEG) Urine Benzodiazepines Screen POS (NEG) Urine Cocaine Screen NEG (NEG) Urine Cannabinoids Screen NEG (NEG) White Blood Count 32.7 TH/MM3 33.2 TH/MM3 28.8 TH/MM3 (4.0-11.0) (4.0-11.0) (4.0-11.0) Red Blood Count 4.48 MIL/MM3 4.13 MIL/MM3 4.26 MIL/MM3 (4.00-5.30) (4.00-5.30) (4.00-5.30) Hemoglobin 12.2 GM/DL 11.3 GM/DL 11.2 GM/DL (11.6-15.3) (11.6-15.3) (11.6-15.3) Hematocrit 37.1 % 34.0 % 35.4 % (35.0-46.0) (35.0-46.0) (35.0-46.0) Mean Corpuscular Volume 82.8 FL 82.5 FL 83.0 FL (80.0-100.0) (80.0-100.0) (80.0-100.0) Mean Corpuscular Hemoglobin 27.3 PG 27.4 PG 26.4 PG (27.0-34.0) (27.0-34.0) (27.0-34.0) Mean Corpuscular Hemoglobin 33.0 % 33.2 % 31.8 % Concent (32.0-36.0) (32.0-36.0) (32.0-36.0) Red Cell Distribution Width 14.5 % 14.3 % 14.4 % (11.6-17.2) (11.6-17.2) (11.6-17.2) Platelet Count 271 TH/MM3 257 TH/MM3 236 TH/MM3 (150-450) (150-450) (150-450) Mean Platelet Volume 9.3 FL 9.8 FL 9.4 FL (7.0-11.0) (7.0-11.0) (7.0-11.0) Neutrophils (%) (Auto) % (16.0-70.0) Lymphocytes (%) (Auto) % (9.0-44.0) Monocytes (%) (Auto) % (0.0-8.0) Eosinophils (%) (Auto) % (0.0-4.0) Basophils (%) (Auto) % (0.0-2.0) Neutrophils # (Auto) TH/MM3 (1.8-7.7) Lymphocytes # (Auto) TH/MM3 (1.0-4.8) Monocytes # (Auto) TH/MM3 (0-0.9) Eosinophils # (Auto) TH/MM3 (0-0.4) Basophils # (Auto) TH/MM3 (0-0.2) CBC Comment AUTO DIFF Differential Total Cells 100 Counted Neutrophils % (Manual) 38 % (16-70) Band Neutrophils % 4 % (0-6) Lymphocytes % 56 % (9-44) Monocytes % 2 % (0-8) Neutrophils # (Manual) 13.7 TH/MM3 (1.8-7.7) Differential Comment FINAL DIFF MANUAL Smudge Cells PRESENT Platelet Estimate NORMAL (NORMAL) Platelet Morphology Comment NORMAL (NORMAL) Ovalocytes 1+ (NORMAL) Sodium Level 138 MEQ/L 139 MEQ/L 140 MEQ/L (136-145) (136-145) (136-145) Potassium Level 4.0 MEQ/L 3.6 MEQ/L 3.4 MEQ/L (3.5-5.1) (3.5-5.1) (3.5-5.1) Chloride Level 103 MEQ/L 106 MEQ/L 103 MEQ/L (98-107) (98-107) (98-107) Carbon Dioxide Level 26.5 MEQ/L 23.4 MEQ/L 28.3 MEQ/L (21.0-32.0) (21.0-32.0) (21.0-32.0) Anion Gap 9 MEQ/L (5-15) 10 MEQ/L (5-15) 9 MEQ/L (5-15) Blood Urea Nitrogen 17 MG/DL (7-18) 16 MG/DL (7-18) 16 MG/DL (7-18) Creatinine 0.97 MG/DL 0.85 MG/DL 0.87 MG/DL (0.50-1.00) (0.50-1.00) (0.50-1.00) Estimat Glomerular Filtration 55 ML/MIN (>89) 64 ML/MIN (>89) 62 ML/MIN (>89) Rate Random Glucose 128 MG/DL 120 MG/DL 96 MG/DL (74-106) (74-106) (74-106) Calcium Level 8.9 MG/DL 8.7 MG/DL 8.6 MG/DL (8.5-10.1) (8.5-10.1) (8.5-10.1) Magnesium Level 2.0 MG/DL (1.5-2.5) Total Bilirubin 1.5 MG/DL (0.2-1.0) Aspartate Amino Transf 38 U/L (15-37) (AST/SGOT) Alanine Aminotransferase 18 U/L (10-53) (ALT/SGPT) Alkaline Phosphatase 110 U/L (45-117) Total Protein 7.3 GM/DL 6.5 GM/DL (6.4-8.2) (6.0-7.6) Albumin 3.5 GM/DL (3.4-5.0) Blood Smear Pathologist Review Haptoglobin 195 MG/DL (30-200) Lactate Dehydrogenase 236 U/L (84-246) Result Diagram: 08/08/16 0551 08/08/16 0551 Microbiology Microbiology Date/Time Procedure Status Source Growth 08/05/16 22:50 Aerobic Blood Culture - Preliminary Resulted Blood Peripheral NO GROWTH IN 3 DAYS 08/05/16 22:50 Anaerobic Blood Culture - Preliminary Resulted Blood Peripheral NO GROWTH IN 3 DAYS 08/05/16 23:00 Aerobic Blood Culture - Preliminary Resulted Blood Peripheral NO GROWTH IN 3 DAYS 08/05/16 23:00 Anaerobic Blood Culture - Preliminary Resulted Blood Peripheral NO GROWTH IN 3 DAYS Imaging Last Impressions Abdomen Ultrasound 08/08/16 0000 Signed Impressions: Service Date/Time: Monday, August 08, 2016 08:55 - CONCLUSION: 1. The spleen is normal size. 2. Small left pleural effusion. 3. Bilateral cystic lesions in the liver, with one lesion in the midpole the right side measure 1.2 cm containing low level internal echoes and a 7 mm isoechoic lesion on the left side. Most of these probably represent complicated cysts. 4. Small amount of perinephric, possibly subcapsular, fluid adjacent to the midpole of the left kidney. 5. Maximum dimension of the abdominal aorta is within normal limits, but luminal irregularity to suggest arteriosclerotic disease. Fernando Radford MD Abdomen X-Ray 08/07/16 0000 Signed Impressions: Service Date/Time: Sunday, August 07, 2016 23:44 - CONCLUSION: Normal examination. Nasogastric is coiled within the stomach. Tip is in the distal stomach. Dusty Gamino MD Chest X-Ray 08/06/16 0000 Signed Impressions: Service Date/Time: Saturday, August 06, 2016 07:23 - CONCLUSION: Mild interstitial infiltrate right upper lung. Patrick Nieto MD Head Magnetic Resonance Angiography 08/05/16 0000 Signed Impressions: Service Date/Time: Friday, August 05, 2016 11:13 - CONCLUSION: Significant improvement in the flow within the right M1 and ALONDRA since the study from 08/04/2016. Pam Sanchez MD Carotid Artery Ultrasound 08/05/16 0000 Signed Impressions: Service Date/Time: Friday, August 05, 2016 12:06 - CONCLUSION: No evidence for hemodynamically significant stenosis. Pam Sanchez MD Brain MRI 08/05/16 0000 Signed Impressions: Service Date/Time: Friday, August 05, 2016 11:13 - CONCLUSION: Acute infarctions on the right side without hemorrhage or mass effect. Pam Sanchez MD Neck CTA 08/04/162210 Signed Impressions: Service Date/Time: Thursday, August 04, 2016 22:18 - CONCLUSION: 1. There is 50-60%% stenosis at the origin of the right internal carotid artery. There is 20-30%% stenosis on the left 2. Extensive calcific plaque involving the cavernous carotid arteries bilaterally Harsh Card MD Head/Neck CTA with Brain Perfusion 08/04/16 2211 Signed Impressions: Service Date/Time: Thursday, August 04, 2016 22:15 - CONCLUSION: 1. Flow/ volume mismatch involving the posterior right temporal lobe 1. Harsh Card MD Head CTA 08/04/16 2211 Signed Impressions: Service Date/Time: Thursday, August 04, 2016 22:18 - CONCLUSION: 1. Occlusion of the right M1 segment of the middle cerebral artery. 2. Occlusion of the distal right anterior cerebral artery Harsh Card MD Head CT 08/04/16 0000 Signed Impressions: Service Date/Time: Thursday, August 04, 2016 22:11 - CONCLUSION: 1. No acute findings. Chronic appearing white matter ischemic changes. Tin Romero MD Cerebral Arteriogram 08/04/16 0000 Signed Impressions: Service Date/Time: Friday, August 05, 2016 00:38 - CONCLUSION: Peripheral vascular disease with right iliac occlusion. Patent M1 segment of the right middle cerebral artery with interval resolution of an obstructing thrombus following intravenous thrombolytic therapy. No endovascular thrombectomy performed. Ravi Stacy MD Procedures tPA - 08/06/18 . Patient/Family Conference Present at Family Conference: Patient's daughter Zena . Family Conference Time (mins): 30 Family Conference Location: Bedside, Hallway Issues Discussed: * Palliative care role, purpose, approach * Hospice care role, purpose, approach * Additional medical, psychosocial, and spiritual history * Patients general health, functional status, and cognitive changes in the months leading up to the current hospitalization * Patient/family understanding of the current medical problems * Patient/family understanding of prognosis * Patients goals of care as best understood from advance directives and/or conversations and/or values * Current medical treatment options and benefits/burdens of those options * Likely scenarios comparing ongoing aggressive care with a transition to comfort measures only * Questions answered to the best of my ability * Palliative care contact information provided The patient was able to talk about how important quality of life is for her, and acknowledged that she had refused a PEG tube. She is uncertain how long she wants to keep the NG tube with artificial nutrition, and is uncertain whether she would want hospice services if she elects to stop all artificial nutrition. She understands that the option for possibly attempting rehab is available. She wants to talk more about this with her family. . Assessment and Plan Disease Oriented Problem List: (1) acute right MCA stroke (2) chronic atrial fibrillation (3) peripheral vascular disease (4) leukocytosis with majority lymphocytes (5) left leg, nonhealing ulcer (6) hypothyroidism (7) hyperlipidemia (8) hypertension Symptom Scale: (1) anxiety 0-10 Scale: 1 (2) dysphagia 0-10 Scale: Unable to quantify (severe) (3) cough 0-10 Scale: 1 Pertinent Non-Medical Issues Psychosocial: , was living alone. 2 sons and 1 daughter Spiritual: Not spiritual or mormonism Legal: Although the patient does have some speech difficulty, she is oriented and has a good understanding of her medical conditions. She has capacity for decision-making. She has designated her 2 sons as HCS's when she loses capacity. Ethical issues impacting care: None . Important Contacts Daughter: Zena Cisneros Son: Sebastien Farley [phone] . Prognosis The patient's neurologic deficits have not improved to this point in time. Given her age and her recent gradual decline in strength, she is likely to have additional complications including the possibilities of pneumonia, additional strokes, other complications of PVD, etc. She would be appropriate for hospice services if her goals become completely comfort oriented. . Code Status: No Code Plan * DO NOT RESUSCITATE * GOALS: The patient was able to talk about how important quality of life is for her, and acknowledged that she had refused a PEG tube. She is uncertain how long she wants to keep the NG tube with artificial nutrition, and is uncertain whether she would want hospice services if she elects to stop all artificial nutrition. She understands that the option for possibly attempting rehab is available. She wants to talk more about this with her family. * DECISION-MAKING: Although the patient does have some speech difficulty, she is oriented and has a good understanding of her medical conditions. She has capacity for decision-making at this time. She has designated her 2 sons as HCS 's when she loses capacity. * SYMPTOMS: Her dysphagia is severe, and she has a high risk for aspiration ( she is already coughing); however, she is not dyspneic at this time. He does have some anxiety associated with the difficult decisions that she faces. She does not have pain at this time. * Her son is arriving tomorrow, and the patient's 3 children and I will meet with the patient tomorrow at 4 PM to further discuss the benefits and burdens of the options that she faces now. * Palliative Care will continue to follow the patient during this hospitalization. . Time Spent Total Floor Time (mins): 80 Face to Face Time (mins): 44 >50% Counseling/Coord of Care: Yes Thank you for the opportunity to participate in the care of Ms. Farley. Tiffany Godinez MD Aug 08, 2016 17:36
[2016-08-08] MEDS: DOCUSATE SODIUM 50 MG/SENNA 8.6 MG TAB NG SCH (21:44)
--- NOTE | 2016-08-08 23:06 | PD.ONC.PN ---
Subjective Subjective Remarks on tube feeds remains acutely ill very weak palliative care involved Objective Data Date Time Temp Pulse Resp B/P Pulse Ox O2 Delivery O2 Flow Rate FiO2 08/08/16 18:00 88 08/08/16 16:00 97.4 94 20 174/100 94 08/08/16 12:33 96 Nasal Cannula 2.00 08/08/16 12:00 97.6 84 20 136/81 96 08/08/16 11:30 Nasal Cannula 3.00 Humidified 08/08/16 08:00 97.3 99 20 184/85 97 Manual Cuff/Auscultation 08/08/16 04:00 97.2 85 20 184/87 95 08/08/16 00:00 95.6 97 20 146/74 94 08/08/16 08/08/16 08/08/16 07:00 15:00 23:00 Output Total 375 ml 875 ml 600 ml Balance -375 ml -875 ml -600 ml Result Diagram: 08/08/16 0551 08/08/16 0551 Laboratory Results Laboratory Tests Test 08/08/16 05:51 White Blood Count 28.8 TH/MM3 Red Blood Count 4.26 MIL/MM3 Hemoglobin 11.2 GM/DL Hematocrit 35.4 % Mean Corpuscular Volume 83.0 FL Mean Corpuscular Hemoglobin 26.4 PG Mean Corpuscular Hemoglobin 31.8 % Concent Red Cell Distribution Width 14.4 % Platelet Count 236 TH/MM3 Mean Platelet Volume 9.4 FL Haptoglobin 195 MG/DL Sodium Level 140 MEQ/L Potassium Level 3.4 MEQ/L Chloride Level 103 MEQ/L Carbon Dioxide Level 28.3 MEQ/L Anion Gap 9 MEQ/L Blood Urea Nitrogen 16 MG/DL Creatinine 0.87 MG/DL Estimat Glomerular Filtration 62 ML/MIN Rate Random Glucose 96 MG/DL Calcium Level 8.6 MG/DL Lactate Dehydrogenase 236 U/L Total Protein 6.5 GM/DL Imaging Studies Last 24 hours Impressions Abdomen Ultrasound 08/08/16 0000 Signed Impressions: Service Date/Time: Monday, August 08, 2016 08:55 - CONCLUSION: 1. The spleen is normal size. 2. Small left pleural effusion. 3. Bilateral cystic lesions in the liver, with one lesion in the midpole the right side measure 1.2 cm containing low level internal echoes and a 7 mm isoechoic lesion on the left side. Most of these probably represent complicated cysts. 4. Small amount of perinephric, possibly subcapsular, fluid adjacent to the midpole of the left kidney. 5. Maximum dimension of the abdominal aorta is within normal limits, but luminal irregularity to suggest arteriosclerotic disease. Fernando Radford MD Administered Medications Medications (Trade) Dose Ordered Sig/Madina Route PRN Reason Start Time Stop Time Status Last Admin Dose Admin Sodium Chloride (NS Flush) 2 ml BID IV FLUSH 08/05/16 09:00 08/08/16 09:00 Chlorhexidine Gluconate (Chlorhexidine 2% Cloth) 3 pack Taper DAILY@04 TOP 08/05/16 04:00 08/01/17 03:59 08/07/16 05:45 Hydralazine HCl (Apresoline Inj) 20 mg Q4H PRN IV PUSH SYS BP GREATER THAN 180 MMHG 08/05/16 14:00 08/07/16 01:40 Labetalol HCl (Trandate Inj) 20 mg Q4H PRN IV PUSH SYS BP GREATER THAN 180 MMHG 08/05/16 14:00 08/07/16 03:51 Heparin Sodium (Porcine) 5000 units 5,000 units BID SQ 08/06/16 10:00 08/08/16 21:44 Dextrose/Sodium Chloride 1,000 ml @ 50 mls/hr Q20H IV 08/06/16 11:00 08/08/16 23:00 Piperacillin Sod/ Tazobactam Sod (Zosyn 3.375 Gm Premix) 50 ml @ 100 mls/hr Q6H IV 08/06/16 15:00 08/08/16 21:44 Pantoprazole Sodium (Protonix Inj) 40 mg Q24H IV PUSH 08/06/16 15:00 08/08/16 15:41 Collagenase (Santyl Oint) 1 applic DAILY TOPICAL 08/06/16 17:00 08/28/16 08:59 08/08/16 09:00 Metoprolol Tartrate (Lopressor) 25 mg Q8HR NG 08/08/16 14:00 08/08/16 21:44 Senna/Docusate Sodium (Denise-Colace) 2 tab BID NG 08/08/16 21:00 08/08/16 21:44 Objective Remarks GENERAL: acutely ill SKIN: Warm and dry. LYMPHATIC: No adenopathy. CARDIOVASCULAR: Regular rate and rhythm without murmurs. RESPIRATORY: Breath sounds equal bilaterally. No accessory muscle use. GASTROINTESTINAL: Abdomen soft, non-tender, nondistended. EXTREMITIES: No cyanosis, or edema. left sided weakness Assessment/Plan Problem List: (1) Acute embolic stroke Status: Acute (2) Leukocytosis Status: Acute (3) Lymphocytosis Status: Acute Assessment 81-year-old female with a past medical history of atrial fibrillation, hypertension, hypothyroidism and peripheral vascular disease who presents with focal symptoms and altered mental status and was found to have an acute right MCA CVA. She is status post static tPA. Hematology was consulted for chronic leukocytosis with elevated lymphocytes. 1. Leukocytosis with an increase in lymphocyte percentage. - peripheral smear strongly suggestive for CLL - flow cytometry pending - LDH, Haptoglobin, SPEP and quantitative immunoglobulins pending - abdominal U/S did not show any splenomegaly or LAD - No associated cytopenias. Chronic lymphocytic leukemia can be managed for quite some time without any treatment. - Outpatient f/u after discharge - Multiple co-morbidities. CLL not at the forefront of her current issues. Likely VÁZQUEZ stage 0 disease. Will not require any treatments. 2. Acute right-sided MCA CVA. She is status post tPA, management per primary team. Alon Fu MD Aug 08, 2016 23:06
[2016-08-09] VITALS (7 sets, daily range): BP systolic 155–183; BP diastolic 74–88; PULSE 78–96; RESP 16–18; TEMP 95.4–98.9; O2SAT 95–97
[2016-08-09 03:40] LABS: HEMATOCRIT 35.6 % (35.0-46.0); MEAN CELL VOLUME 82.9 FL (80.0-100.0); MEAN CORPUSCULAR HEMOGLOBIN 26.2 PG (27.0-34.0); MEAN CORPUSCULAR HGB CONC 31.6 % (32.0-36.0); PLATELET COUNT 253 TH/MM3 (150-450); RED BLOOD COUNT 4.29 MIL/MM3 (4.00-5.30); RED CELL DISTRIBUTION WIDTH 14.8 % (11.6-17.2); REVIEW FLAG FINAL; WHITE BLOOD COUNT 29.7 TH/MM3 (4.0-11.0)
[2016-08-09] MEDS: PIPERACIL-TAZO 3.375 GM PREMIX 50 ML IV SCH ×4 (03:41→21:23)
[2016-08-09] MEDS: CHLORHEXIDINE GLUCONATE 2 % 1 PACK (2 CLOTHS) TOP SCH (03:41)
[2016-08-09 04:00] LABS: BICARBONATE 27.3 MEQ/L (21.0-32.0); POTASSIUM 3.4 MEQ/L (3.5-5.1)
[2016-08-09] MEDS: METOPROLOL TARTRATE 25 MG TAB NG SCH ×3 (05:38→21:24)
[2016-08-09] MEDS: INSULIN NovoLIN REGULAR SUPPLEMENTAL SCALE SQ SCH ×4 (05:39→17:23)
[2016-08-09] MEDS ORDERED: ASPIRIN 325 MG TAB NG SCH (09:00)
[2016-08-09] MEDS: SODIUM CHLORIDE 0.9% FLUSH 10 ML FLUSH IV FLUSH SCH ×2 (09:04→21:00)
[2016-08-09] MEDS: HEPARIN SODIUM - SQ 10,000 UNITS/ML VIAL SQ SCH ×2 (09:05→21:24)
[2016-08-09] MEDS: DOCUSATE SODIUM 50 MG/SENNA 8.6 MG TAB NG SCH ×2 (09:05→21:00)
[2016-08-09] MEDS: COLLAGENASE OINT 30 GM TUBE TOPICAL SCH (09:06)
--- NOTE | 2016-08-09 15:44 | HHI.PR ---
Subjective Remarks patient awake and alert no headaches, no pain failed swallowing very interactive Objective Vitals Vital Signs Date Time Temp Pulse Resp B/P Pulse Ox O2 Delivery O2 Flow Rate FiO2 08/09/16 12:21 97.6 96 18 171/81 97 08/09/16 11:59 95 Nasal Cannula 2.00 08/09/16 08:00 98.4 95 18 156/74 95 08/09/16 08:00 78 08/09/16 08:00 95 Nasal Cannula 3.00 08/09/16 04:00 98.9 95 18 156/82 96 08/09/16 00:00 95.4 95 18 159/76 96 08/08/16 21:08 Nasal Cannula 3.00 08/08/16 20:00 97.3 96 18 173/91 94 08/08/16 18:00 88 08/08/16 16:00 97.4 94 20 174/100 94 I/O 08/08/16 08/08/16 08/08/16 08/09/16 08/09/16 08/09/16 07:00 15:00 23:00 07:00 15:00 23:00 Intake Total 1360 ml Output Total 375 ml 875 ml 600 ml 700 ml Balance -375 ml -875 ml -600 ml 660 ml IV Total 700 ml Tube Feeding 360 ml Other 300 ml Output Urine Total 375 ml 875 ml 600 ml 700 ml # Bowel Movements 1 Result Diagram: 08/09/16 0323 08/09/16 0323 Imaging Last Impressions Abdomen Ultrasound 08/08/16 0000 Signed Impressions: Service Date/Time: Monday, August 08, 2016 08:55 - CONCLUSION: 1. The spleen is normal size. 2. Small left pleural effusion. 3. Bilateral cystic lesions in the liver, with one lesion in the midpole the right side measure 1.2 cm containing low level internal echoes and a 7 mm isoechoic lesion on the left side. Most of these probably represent complicated cysts. 4. Small amount of perinephric, possibly subcapsular, fluid adjacent to the midpole of the left kidney. 5. Maximum dimension of the abdominal aorta is within normal limits, but luminal irregularity to suggest arteriosclerotic disease. Fernando Radford MD Abdomen X-Ray 08/07/16 0000 Signed Impressions: Service Date/Time: Sunday, August 07, 2016 23:44 - CONCLUSION: Normal examination. Nasogastric is coiled within the stomach. Tip is in the distal stomach. Dusty Gamino MD Chest X-Ray 08/06/16 Signed Impressions: Service Date/Time: Saturday, August 06, 2016 07:23 - CONCLUSION: Mild interstitial infiltrate right upper lung. Patrick Nieto MD Head Magnetic Resonance Angiography 08/05/16 Signed Impressions: Service Date/Time: Friday, August 05, 2016 11:13 - CONCLUSION: Significant improvement in the flow within the right M1 and ALONDRA since the study from 08/04/2016. Pam Sanchez MD Carotid Artery Ultrasound 08/05/16 Signed Impressions: Service Date/Time: Friday, August 05, 2016 12:06 - CONCLUSION: No evidence for hemodynamically significant stenosis. Pam Sanchez MD Brain MRI 08/05/16 Signed Impressions: Service Date/Time: Friday, August 05, 2016 11:13 - CONCLUSION: Acute infarctions on the right side without hemorrhage or mass effect. Pam Sanchez MD Neck CTA 08/04/162210 Signed Impressions: Service Date/Time: Thursday, August 04, 2016 22:18 - CONCLUSION: 1. There is 50-60%% stenosis at the origin of the right internal carotid artery. There is 20-30%% stenosis on the left 2. Extensive calcific plaque involving the cavernous carotid arteries bilaterally Harsh Card MD Head/Neck CTA with Brain Perfusion 08/04/162210 Signed Impressions: Service Date/Time: Thursday, August 04, 2016 22:15 - CONCLUSION: 1. Flow/ volume mismatch involving the posterior right temporal lobe 1. Harsh Card MD Head CTA 08/04/162210 Signed Impressions: Service Date/Time: Thursday, August 04, 2016 22:18 - CONCLUSION: 1. Occlusion of the right M1 segment of the middle cerebral artery. 2. Occlusion of the distal right anterior cerebral artery Harsh Card MD Head CT 08/04/16 Signed Impressions: Service Date/Time: Thursday, August 04, 2016 22:11 - CONCLUSION: 1. No acute findings. Chronic appearing white matter ischemic changes. Tin Romero MD Cerebral Arteriogram 08/04/16 0000 Signed Impressions: Service Date/Time: Friday, August 05, 2016 00:38 - CONCLUSION: Peripheral vascular disease with right iliac occlusion. Patent M1 segment of the right middle cerebral artery with interval resolution of an obstructing thrombus following intravenous thrombolytic therapy. No endovascular thrombectomy performed. Ravi Stacy MD Objective Remarks awake and alert ff commands, oriented to person and place and family anisocoric - right pupil > left mild facial asymmetry very weak gag reflex neck supple lungs decreased breath sounds irregularly irregular rhythm abdomen-soft, + bowel sounds [place] in place extremities no edema left sided extremties flaccid Assessment to: Continue [place] insert reason: Prolonged Immobilization Date of Insertion: Aug 04, 2016 A/P Assessment and Plan Assessment: This is a 81yF right handed female with history of atrial fibrillation who stopped taking her Coumadin and now is found to have a right MCA CVA with proximal flow cut-off on CTA. She is actively receiving systemic TPA and is being transported now to interventional neuroradiology for potential mechanical thrombectomy-By that time thrombus was lysed and embolectomy not performed. She remains critically ill at this time. We will keep tight BP control with target sbp < 180. Strict q1h neuro checks. monitor for signs of bleeding. Dr. Dc had discussions with Dr. Stacy and Dr. Yuan and Dr. Leal and we are all in agreement with this course of action. Neuro: Acute right MCA CVA -- s/p systemic TPA. Went to IR 08/04 for possible mechanical thrombectomy, but thrombus has already lysed -- stroke precautions -- Neuro following: Dr. Yuan -- ASA -- PT/OT/ST Failed swallowing evaluation --NGT placed. TF started - NGT fell out- reinsert -- ff daily- d/w family- may need PEG if no progess with swallowing evaluation - expressed understanding Resp: -- wean o2 by nc for goal spo2 > 92% -- aggressive pulmonary toilet. CV: Atrial Fibrillation, variable rate 90s- improved Hypertensive Emergency -- will require anticoagulation. hold off for now in the setting of immediate post TPA -- 2d echo- unremarkable Renal: -- strict I/Os -- Monitor BUN/creat Aspiration Pneumonia -- daily CBC-Leukocytosis -- Zosyn for possible aspiration PNA coverage-ff CBC -- monitor for signs of active bleeding post-TPA CLL - Marked leukocytosis -- Hematology ff - additonal blood works ordered Hyperglycemia of Critical Illness -- SSI, med scale, q6h Hypokalemia Heparin SQ for DVT prophylaxis d/w family at bedside- ff closely- they will have a meeting with Dr. Godinez to discuss- we will hold off NGT for now no PEG for now Mary Mcgrath MD Aug 09, 2016 15:44
[2016-08-09 16:46] LABS: ALBUMIN SPE 3.63 GM/DL (3.50-5.00); ALPHA 1 GLOBULIN 0.32 GM/DL (0.11-0.29); ALPHA 2 GLOBULIN 0.86 GM/DL (0.22-1.00); BETA GLOBULINS (SPE) 0.83 GM/DL (0.53-1.03)
[2016-08-09] MEDS: ENALAPRILAT 1.25 MG/ML VIAL IV PUSH PRN (17:04)
[2016-08-09] MEDS: PANTOPRAZOLE SODIUM 40 MG VIAL IV PUSH SCH (17:05)
--- NOTE | 2016-08-09 17:18 | HHI.HCPN ---
Reason for visit a. To assist with evaluation and management of symptoms including: Dysphagia, anxiety b. To assist medical decision maker(s) with: better understanding of current medical conditions; weighing benefits/burdens of medical treatment options; making medical treatment decisions. . Subjective/Interval History INTERVAL NOTE: The patient denies pain. She continues to have significant dysphagia, and the follow-up Speech Therapy evaluation today again revealed evidence of aspiration. She remains afebrile, and has no dysphagia. She has less anxiety now that multiple family members are here with her. The patient and her family want to discuss what the options are now., See below . Family/friend interactions Discussion in the room with the patient's daughter, son, [id number], granddaughter, and the patient's other son via cell phone speaker. We reviewed the stroke and the effects that it has had, we discussed the prognosis, and then we addressed the options. The options vary from transitioning to comfort now for end-of-life care with hospice, to getting the PEG tube for artificial nutrition and going to Rehab for a month or 2 to see if some improvement develops, to getting the PEG tube and planning on long-term rehabilitation. The family knows that the improvements that may occur will take a long time, perhaps a year or more, and they understand that there is no way to predict how much improvement may develop. I told them I thought it was highly likely that the patient would remain dependent / on others, and she would not be returning home to live independently. . Advance Directives Living Will: Copy in medical record Health Care Surrogate: Copy in medical record Advance Directive Specifics Health Care Surrogate(s): The patient's 2 sons are the primary and secondary HCS's. . Documented care wishes: Patient has a living will that states she does not want to be artificially prolonged if she has a terminal or end-stage condition. . Objective Vital Signs Date Time Temp Pulse Resp B/P Pulse Ox O2 Delivery O2 Flow Rate FiO2 08/09/16 16:39 97.6 83 18 183/88 97 08/09/16 12:21 97.6 96 18 171/81 97 08/09/16 11:59 95 Nasal Cannula 2.00 08/09/16 08:00 98.4 95 18 156/74 95 08/09/16 08:00 78 08/09/16 08:00 95 Nasal Cannula 3.00 08/09/16 04:00 98.9 95 18 156/82 96 08/09/16 00:00 95.4 95 18 159/76 96 08/08/16 21:08 Nasal Cannula 3.00 08/08/16 20:00 97.3 96 18 173/91 94 08/08/16 18:00 88 Intake & Output 08/09/16 08/09/16 07:00 19:00 Intake Total 1360 ml Output Total 1300 ml 450 ml Balance 60 ml -450 ml IV Total 700 ml Tube Feeding 360 ml Other 300 ml Output Urine Total 1300 ml 450 ml # Bowel Movements 2 Physical Exam CONSTITUTIONAL/GENERAL: This is an adequately nourished patient, in no apparent distress. TUBES/LINES/DRAINS: NG tube, peripheral IV, nasal cannula oxygen SKIN: No jaundice, rashes, or lesions. Skin tears on left knee, bandage on the lower left leg. Skin temperature appropriate. Not diaphoretic. EYES: Pupils equal and round and reactive. Extraocular motions intact. No scleral icterus. No injection or drainage. Fundi not examined. ENT: Hearing grossly normal. Nose without bleeding or purulent drainage. NECK: Trachea midline. Supple, nontender. No palpable thyroid enlargement or nodularity. CARDIOVASCULAR: Regular rate and rhythm with grade 2 systolic murmur. No JVD. Peripheral pulses could not be palpated d.p. Or p.t. RESPIRATORY/CHEST: Symmetric, unlabored respirations. Clear to auscultation. Breath sounds equal bilaterally. A couple rhonchi are present in each lung. GASTROINTESTINAL: Abdomen soft, non-tender, nondistended. No hepato-splenomegaly , or palpable masses. No guarding. Bowel sounds present. GENITOURINARY: Without palpable bladder distension. Epstein catheter in place. MUSCULOSKELETAL: Extremities without clubbing, cyanosis, or edema. No joint tenderness or effusion noted. No calf tenderness. No mottling or clubbing. NEUROLOGICAL: Awake and alert. Left arm and leg flaccid, hemiplegia. Follows commands. Cognitively sharp. Moves all extremities. PSYCHIATRIC: No obvious anxiety/depression. No apparent hallucinations or other psychotic thought process. . Diagnostic Tests Laboratory Laboratory Tests Test 08/07/16 08/08/16 08/09/16 03:18 05:51 03:23 White Blood Count 33.2 TH/MM3 28.8 TH/MM3 29.7 TH/MM3 (4.0-11.0) (4.0-11.0) (4.0-11.0) Red Blood Count 4.13 MIL/MM3 4.26 MIL/MM3 4.29 MIL/MM3 (4.00-5.30) (4.00-5.30) (4.00-5.30) Hemoglobin 11.3 GM/DL 11.2 GM/DL 11.3 GM/DL (11.6-15.3) (11.6-15.3) (11.6-15.3) Hematocrit 34.0 % 35.4 % 35.6 % (35.0-46.0) (35.0-46.0) (35.0-46.0) Mean Corpuscular Volume 82.5 FL 83.0 FL 82.9 FL (80.0-100.0) (80.0-100.0) (80.0-100.0) Mean Corpuscular Hemoglobin 27.4 PG 26.4 PG 26.2 PG (27.0-34.0) (27.0-34.0) (27.0-34.0) Mean Corpuscular Hemoglobin 33.2 % 31.8 % 31.6 % Concent (32.0-36.0) (32.0-36.0) (32.0-36.0) Red Cell Distribution Width 14.3 % 14.4 % 14.8 % (11.6-17.2) (11.6-17.2) (11.6-17.2) Platelet Count 257 TH/MM3 236 TH/MM3 253 TH/MM3 (150-450) (150-450) (150-450) Mean Platelet Volume 9.8 FL 9.4 FL 8.8 FL (7.0-11.0) (7.0-11.0) (7.0-11.0) Blood Smear Pathologist Review Sodium Level 139 MEQ/L 140 MEQ/L 138 MEQ/L (136-145) (136-145) (136-145) Potassium Level 3.6 MEQ/L 3.4 MEQ/L 3.4 MEQ/L (3.5-5.1) (3.5-5.1) (3.5-5.1) Chloride Level 106 MEQ/L 103 MEQ/L 104 MEQ/L (98-107) (98-107) (98-107) Carbon Dioxide Level 23.4 MEQ/L 28.3 MEQ/L 27.3 MEQ/L (21.0-32.0) (21.0-32.0) (21.0-32.0) Anion Gap 10 MEQ/L (5-15) 9 MEQ/L (5-15) 7 MEQ/L (5-15) Blood Urea Nitrogen 16 MG/DL (7-18) 16 MG/DL (7-18) 17 MG/DL (7-18) Creatinine 0.85 MG/DL 0.87 MG/DL 0.72 MG/DL (0.50-1.00) (0.50-1.00) (0.50-1.00) Estimat Glomerular Filtration 64 ML/MIN (>89) 62 ML/MIN (>89) 78 ML/MIN (>89) Rate Random Glucose 120 MG/DL 96 MG/DL 115 MG/DL (74-106) (74-106) (74-106) Calcium Level 8.7 MG/DL 8.6 MG/DL 8.3 MG/DL (8.5-10.1) (8.5-10.1) (8.5-10.1) Haptoglobin 195 MG/DL (30-200) Lactate Dehydrogenase 236 U/L (84-246) Total Protein 6.5 GM/DL (6.0-7.6) Albumin 3.63 GM/DL (3.50-5.00) Albumin/Globulin Ratio 1.26 (1.39-2.23) Vlrra-3-Frgjmejdq 0.32 GM/DL (0.11-0.29) Kpxwb-4-Rfpxuihaa 0.86 GM/DL (0.22-1.00) Beta Globulins 0.83 GM/DL (0.53-1.03) Gamma Globulins 0.86 GM/DL (0.50-1.39) Result Diagram: 08/09/16 0323 08/09/16 0323 Procedures tPA - 08/06/18 . Assessment and Plan Disease Oriented Problem List: (1) acute right MCA stroke (2) chronic atrial fibrillation (3) peripheral vascular disease (4) leukocytosis with majority lymphocytes (5) left leg, nonhealing ulcer (6) hypothyroidism (7) hyperlipidemia (8) hypertension Symptom Scale: (1) anxiety 0-10 Scale: 1 (2) dysphagia 0-10 Scale: Unable to quantify (severe) (3) cough 0-10 Scale: 1 Pertinent Non-Medical Issues Psychosocial: , was living alone. 2 sons and 1 daughter Spiritual: Not spiritual or mosque Legal: Although the patient does have some speech difficulty, she is oriented and has a good understanding of her medical conditions. She has capacity for decision-making. She has designated her 2 sons as HCS's when she loses capacity. Ethical issues impacting care: None . Important Contacts Daughter: Zena Cisneros Son: Sebastien Farley [phone] . Prognosis The patient's neurologic deficits have not improved to this point in time. Given her age and her recent gradual decline in strength, she is likely to have additional complications including the possibilities of pneumonia, additional strokes, other complications of PVD, etc. She would be appropriate for hospice services if her goals become completely comfort oriented. . Code Status: No Code Plan * DO NOT RESUSCITATE * GOALS: 08/09/16: We reviewed the various effects of the stroke, we discussed the prognosis, and then we addressed the options. The options vary from transitioning to comfort now for end-of-life care with hospice, to getting the PEG tube for artificial nutrition now and going to Rehab for a month or 2 to see if some improvement develops, to getting the PEG tube and planning on long- term rehabilitation. The family knows that the improvements that may occur will take a long time, perhaps a year or more, and they understand that there is no way to predict how much improvement may develop. I told them I thought it was highly likely that the patient would remain dependent 24/7 on others, and she would not be returning home to live independently.. She also understands that if she does have the PEG tube placed and tries rehabilitation but then changes her mind later, she can always transition to hospice and comfort care at that time. * DECISION-MAKING: Although the patient does have some speech difficulty, she is oriented and has a good understanding of her medical conditions. She has capacity for decision-making at this time. She has designated her 2 sons as HCS 's when she loses capacity. * SYMPTOMS: Her dysphagia is severe, and she has a high risk for aspiration ( she is already coughing); however, she is not dyspneic at this time. He does have some anxiety associated with the difficult decisions that she faces, but that is improved since her family is all here. She does not have pain at this time. * The patient and family will continue their discussion tonight and we will again address the options and choices tomorrow. * Palliative Care will continue to follow the patient during this hospitalization. . Time Spent Total Floor Time (mins): 49 Face to Face Time (mins): 29 >50% Counseling/Coord of Care: Yes (d/w Dr. Mcgrath) Attestation To help prompt me to consider important information that might be impacting today's encounter and assessment, information from prior notes written by myself or my colleagues may have been "brought forward" into today's note. My signature on this note, however, is an attestation that I personally performed the exam, history, and/or decision-making noted today, and, unless otherwise indicated, the interactions with patient, family, and staff as well as the review of records all occurred today. I also attest that the listed assessment and stated plan reflect my best clinical judgment today based on the combination of historical information, prior notes, and today's exam/ interactions. When time spent is documented, it refers only to time spent today by the signer, or if indicated, combined time spent today by collaborating physician/nurse practitioner. Tiffany Godinez MD Aug 09, 2016 17:18
[2016-08-09] MEDS: DEXT 5%-NACL 0.9% 1000 ML INJ 1,000 ML IV SCH (17:48)
[2016-08-09] MEDS: RESP: ALBUTEROL 2.5 MG/IPRATROPIUM 0.5 MG NEB (PRN) INH (22:06)
--- NOTE | 2016-08-09 23:27 | PD.ONC.PN ---
Subjective Subjective Remarks weak/dysphagic discussions with family and palliative care ongoing Objective Data Date Time Temp Pulse Resp B/P Pulse Ox O2 Delivery O2 Flow Rate FiO2 08/09/16 21:19 98.2 96 16 155/80 97 08/09/16 20:17 Nasal Cannula 2.00 08/09/16 16:39 97.6 83 18 183/88 97 08/09/16 12:21 97.6 96 18 171/81 97 08/09/16 11:59 95 Nasal Cannula 2.00 08/09/16 08:00 98.4 95 18 156/74 95 08/09/16 08:00 78 08/09/16 08:00 95 Nasal Cannula 3.00 08/09/16 04:00 98.9 95 18 156/82 96 08/09/16 00:00 95.4 95 18 159/76 96 08/09/16 08/09/16 08/09/16 07:00 15:00 23:00 Intake Total 1360 ml 1332 ml Output Total 700 ml 450 ml Balance 660 ml -450 ml 1332 ml Result Diagram: 08/09/16 0323 08/09/16 0323 Laboratory Results Laboratory Tests Test 08/09/16 03:23 White Blood Count 29.7 TH/MM3 Red Blood Count 4.29 MIL/MM3 Hemoglobin 11.3 GM/DL Hematocrit 35.6 % Mean Corpuscular Volume 82.9 FL Mean Corpuscular Hemoglobin 26.2 PG Mean Corpuscular Hemoglobin 31.6 % Concent Red Cell Distribution Width 14.8 % Platelet Count 253 TH/MM3 Mean Platelet Volume 8.8 FL Sodium Level 138 MEQ/L Potassium Level 3.4 MEQ/L Chloride Level 104 MEQ/L Carbon Dioxide Level 27.3 MEQ/L Anion Gap 7 MEQ/L Blood Urea Nitrogen 17 MG/DL Creatinine 0.72 MG/DL Estimat Glomerular Filtration 78 ML/MIN Rate Random Glucose 115 MG/DL Calcium Level 8.3 MG/DL Administered Medications Medications (Trade) Dose Ordered Sig/[place] Route PRN Reason Start Time Stop Time Status Last Admin Dose Admin Sodium Chloride (NS Flush) 2 ml BID IV FLUSH 08/05/16 09:00 08/09/16 09:04 Chlorhexidine Gluconate (Chlorhexidine 2% Cloth) 3 pack Taper DAILY@04 TOP 08/05/16 04:00 08/01/17 03:59 08/07/16 05:45 Hydralazine HCl (Apresoline Inj) 20 mg Q4H PRN IV PUSH SYS BP GREATER THAN 180 MMHG 08/05/16 14:00 08/07/16 01:40 Labetalol HCl (Trandate Inj) 20 mg Q4H PRN IV PUSH SYS BP GREATER THAN 180 MMHG 08/05/16 14:00 08/07/16 03:51 Heparin Sodium (Porcine) 5000 units 5,000 units BID SQ 08/06/16 10:00 08/09/16 21:24 Dextrose/Sodium Chloride 1,000 ml @ 50 mls/hr Q20H IV 08/06/16 11:00 08/09/16 17:48 Piperacillin Sod/ Tazobactam Sod (Zosyn 3.375 Gm Premix) 50 ml @ 100 mls/hr Q6H IV 08/06/16 15:00 08/09/16 21:23 Pantoprazole Sodium (Protonix Inj) 40 mg Q24H IV PUSH 08/06/16 15:00 08/09/16 17:05 Collagenase (Santyl Oint) 1 applic DAILY TOPICAL 08/06/16 17:00 08/28/16 08:59 08/09/16 09:06 Metoprolol Tartrate (Lopressor) 25 mg Q8HR NG 08/08/16 14:00 08/09/16 05:38 Senna/Docusate Sodium (Denise-Colace) 2 tab BID NG 08/08/16 21:00 08/09/16 09:05 Enalaprilat (Vasotec Inj) 1.25 mg Q6H PRN IV PUSH SBP>160, DBP>90 08/09/16 16:15 08/09/16 17:04 Objective Remarks GENERAL: acutely ill SKIN: Warm and dry. NECK: Supple, trachea midline. No JVD or lymphadenopathy. LYMPHATIC: No adenopathy. CARDIOVASCULAR: Regular rate and rhythm without murmurs. RESPIRATORY: Breath sounds equal bilaterally. No accessory muscle use. GASTROINTESTINAL: Abdomen soft, non-tender, nondistended. EXTREMITIES: No cyanosis, or edema. Left sided weakness Assessment/Plan Problem List: (1) Acute embolic stroke Status: Acute (2) Leukocytosis Status: Acute (3) Lymphocytosis Status: Acute Assessment 81-year-old female with a past medical history of atrial fibrillation, hypertension, hypothyroidism and peripheral vascular disease who presents with focal symptoms and altered mental status and was found to have an acute right MCA CVA. She is status post static tPA. Hematology was consulted for chronic leukocytosis with elevated lymphocytes. 1. Leukocytosis with an increase in lymphocyte percentage. - peripheral smear strongly suggestive for CLL - flow cytometry pending - LDH, Haptoglobin are normal. SPEP and quantitative immunoglobulins pending - abdominal U/S did not show any splenomegaly or LAD - No associated cytopenias. Chronic lymphocytic leukemia can be managed for quite some time without any treatment. - Outpatient f/u after discharge - Multiple co-morbidities. CLL not at the forefront of her current issues. Likely VÁZQUEZ stage 0 disease. Will not require any treatments. 2. Acute right-sided MCA CVA. She is status post tPA, management per primary team. CBC and Labs reviewed. counts stable. No immediate hematological issues. will f/ u on CLL w/u Alon Fu MD Aug 09, 2016 23:26
[2016-08-10] VITALS (9 sets, daily range): BP systolic 148–168; BP diastolic 72–79; PULSE 73–103; RESP 18–20; TEMP 97.2–99.2; O2SAT 94–99
[2016-08-10] MEDS: CHLORHEXIDINE GLUCONATE 2 % 1 PACK (2 CLOTHS) TOP SCH ×2 (04:00→22:35)
[2016-08-10] MEDS: INSULIN NovoLIN REGULAR SUPPLEMENTAL SCALE SQ SCH ×4 (04:53→18:00)
[2016-08-10] MEDS: METOPROLOL TARTRATE 25 MG TAB NG SCH ×3 (04:53→22:35)
[2016-08-10] MEDS: PIPERACIL-TAZO 3.375 GM PREMIX 50 ML IV SCH ×4 (04:53→22:34)
[2016-08-10 04:54] LABS: HEMATOCRIT 33.7 % (35.0-46.0); MEAN CELL VOLUME 82.6 FL (80.0-100.0); MEAN CORPUSCULAR HEMOGLOBIN 26.7 PG (27.0-34.0); MEAN CORPUSCULAR HGB CONC 32.3 % (32.0-36.0); PLATELET COUNT 259 TH/MM3 (150-450); RED BLOOD COUNT 4.08 MIL/MM3 (4.00-5.30); RED CELL DISTRIBUTION WIDTH 14.7 % (11.6-17.2); REVIEW FLAG FINAL; WHITE BLOOD COUNT 29.5 TH/MM3 (4.0-11.0)
[2016-08-10 05:23] LABS: BICARBONATE 28.7 MEQ/L (21.0-32.0); POTASSIUM 3.1 MEQ/L (3.5-5.1)
[2016-08-10] MEDS: SODIUM CHLORIDE 0.9% FLUSH 10 ML FLUSH IV FLUSH SCH ×2 (09:00→21:00)
[2016-08-10] MEDS: DOCUSATE SODIUM 50 MG/SENNA 8.6 MG TAB NG SCH ×2 (09:00→22:35)
--- NOTE | 2016-08-10 09:00 | HHI.PR ---
Subjective Remarks patient awake and alert, oriented x 3, no pain complains, no headaches very sharp in SR today with occ. PVCs f ADD: faileD modified ba swallowing Objective Vitals Vital Signs Date Time Temp Pulse Resp B/P Pulse Ox O2 Delivery O2 Flow Rate FiO2 08/10/16 04:04 97.2 95 18 151/74 95 08/10/16 00:19 97.6 97 20 148/75 98 08/09/16 21:19 98.2 96 16 155/80 97 08/09/16 20:17 Nasal Cannula 2.00 08/09/16 16:39 97.6 83 18 183/88 97 08/09/16 12:21 97.6 96 18 171/81 97 08/09/16 11:59 95 Nasal Cannula 2.00 I/O 08/09/16 08/09/16 08/09/16 08/10/16 08/10/16 08/10/16 07:00 15:00 23:00 07:00 15:00 23:00 Intake Total 1360 ml 1332 ml Output Total 700 ml 450 ml 350 ml Balance 660 ml -450 ml 1332 ml -350 ml IV Total 700 ml 1332 ml Tube Feeding 360 ml Other 300 ml Output Urine Total 700 ml 450 ml 350 ml # Bowel Movements 2 0 Result Diagram: 08/10/16 0400 08/10/16 0400 Imaging Last Impressions Abdomen Ultrasound 08/08/16 0000 Signed Impressions: Service Date/Time: Monday, August 08, 2016 08:55 - CONCLUSION: 1. The spleen is normal size. 2. Small left pleural effusion. 3. Bilateral cystic lesions in the liver, with one lesion in the midpole the right side measure 1.2 cm containing low level internal echoes and a 7 mm isoechoic lesion on the left side. Most of these probably represent complicated cysts. 4. Small amount of perinephric, possibly subcapsular, fluid adjacent to the midpole of the left kidney. 5. Maximum dimension of the abdominal aorta is within normal limits, but luminal irregularity to suggest arteriosclerotic disease. Fernando Radford MD Abdomen X-Ray 08/07/16 0000 Signed Impressions: Service Date/Time: Sunday, August 07, 2016 23:44 - CONCLUSION: Normal examination. Nasogastric is coiled within the stomach. Tip is in the distal stomach. Dusty Gamino MD Chest X-Ray 08/06/16 Signed Impressions: Service Date/Time: Saturday, August 06, 2016 07:23 - CONCLUSION: Mild interstitial infiltrate right upper lung. Patrick Nieto MD Head Magnetic Resonance Angiography 08/05/16 Signed Impressions: Service Date/Time: Friday, August 05, 2016 11:13 - CONCLUSION: Significant improvement in the flow within the right M1 and ALONDRA since the study from 08/04/2016. Pam Sanchez MD Carotid Artery Ultrasound 08/05/16 Signed Impressions: Service Date/Time: Friday, August 05, 2016 12:06 - CONCLUSION: No evidence for hemodynamically significant stenosis. Pam Sanchez MD Brain MRI 08/05/16 Signed Impressions: Service Date/Time: Friday, August 05, 2016 11:13 - CONCLUSION: Acute infarctions on the right side without hemorrhage or mass effect. Pam Sanchez MD Neck CTA 08/04/162210 Signed Impressions: Service Date/Time: Thursday, August 04, 2016 22:18 - CONCLUSION: 1. There is 50-60%% stenosis at the origin of the right internal carotid artery. There is 20-30%% stenosis on the left 2. Extensive calcific plaque involving the cavernous carotid arteries bilaterally Harsh Card MD Head/Neck CTA with Brain Perfusion 08/04/162210 Signed Impressions: Service Date/Time: Thursday, August 04, 2016 22:15 - CONCLUSION: 1. Flow/ volume mismatch involving the posterior right temporal lobe 1. Harsh Card MD Head CTA 08/04/162210 Signed Impressions: Service Date/Time: Thursday, August 04, 2016 22:18 - CONCLUSION: 1. Occlusion of the right M1 segment of the middle cerebral artery. 2. Occlusion of the distal right anterior cerebral artery Harsh Card MD Head CT 08/04/16 Signed Impressions: Service Date/Time: Thursday, August 04, 2016 22:11 - CONCLUSION: 1. No acute findings. Chronic appearing white matter ischemic changes. Tin Romero MD Cerebral Arteriogram 08/04/16 Signed Impressions: Service Date/Time: Friday, August 05, 2016 00:38 - CONCLUSION: Peripheral vascular disease with right iliac occlusion. Patent M1 segment of the right middle cerebral artery with interval resolution of an obstructing thrombus following intravenous thrombolytic therapy. No endovascular thrombectomy performed. Ravi Stacy MD Objective Remarks awake and alert ff commands, oriented to person and place and family, dysarthric speech anisocoric mild facial asymmetry very weak gag reflex neck supple lungs decreased breath sounds in SR abdomen-soft, + bowel sounds ov[place]o in place extremities no edema left sided extremties flaccid Urinary Catheter: Yes [place] insert reason: Prolonged Immobilization Date of Insertion: Aug 04, 2016 A/P Assessment and Plan Assessment: This is a 81yF right handed female with history of atrial fibrillation who stopped taking her Coumadin and now is found to have a right MCA CVA with proximal flow cut-off on CTA. She is actively receiving systemic TPA and is being transported now to interventional neuroradiology for potential mechanical thrombectomy-By that time thrombus was lysed and embolectomy not performed. She remains critically ill at this time. We will keep tight BP control with target sbp < 180. Strict q1h neuro checks. monitor for signs of bleeding. Dr. Dc had discussions with Dr. Stacy and Dr. Yuan and Dr. Leal and we are all in agreement with this course of action. Neuro: Acute right MCA CVA -- s/p systemic TPA. Went to IR 08/04 for possible mechanical thrombectomy, but thrombus has already lysed -- stroke precautions -- Neuro following: Dr. Yuan -- ASA -- PT/OT/ST- neuro exam- stable Failed swallowing evaluation - for modified Barium swallow today 08/10 - d/w speech therapistCatalino Clark --08/09 d/w family- may need PEG if no progess with swallowing evaluation - expressed understanding Resp: -- wean o2 by nc for goal spo2 > 92% -- aggressive pulmonary toilet. CV: Atrial Fibrillation, -Intermitted - rate controlled Hypertensive Emergency -- will require anticoagulation. hold off for now in the setting of immediate post TPA -- 2d echo- unremarkable - Renal: -- strict I/Os -- Monitor BUN/creat Aspiration Pneumonia -- daily CBC-Leukocytosis- secondary to CLL too -- Zosyn for possible aspiration PNA coverage-- + right upper infiltrate -- monitor for signs of active bleeding post-TPA CLL -chronic marked leukocytosis -- Hematology ff - additonal blood works ordered Hyperglycemia of Critical Illness -- SSI, med scale, q6h Hypokalemia- recheck today Heparin SQ for DVT prophylaxis ADD - failed modified barium- swallow- consult GI for PEG- nurse to inform- if can be done today or weekend if not - till Saturday- will place NGT for meds and tube feedings HOld Heparin SQ for possible PEG today or tomorrow if GI can get her into schedule Mary Mcgrath MD Aug 10, 2016 09:00
[2016-08-10] MEDS: COLLAGENASE OINT 30 GM TUBE TOPICAL SCH (10:33)
[2016-08-10] MEDS: ASPIRIN 300 MG SUPP RECTAL SCH (10:33)
[2016-08-10] MEDS ORDERED: ESMOLOL HCL 100 MG/10 ML VIAL IV ONE (12:00)
[2016-08-10] MEDS ORDERED: ONDANSETRON HCL 4 MG/2 ML VIAL IV PUSH ONE (12:00)
--- NOTE | 2016-08-10 12:54 | HHI.HCPN ---
Reason for visit a. To assist with evaluation and management of symptoms including: Dysphagia, anxiety b. To assist medical decision maker(s) with: better understanding of current medical conditions; weighing benefits/burdens of medical treatment options; making medical treatment decisions. . Subjective/Interval History INTERVAL NOTE: The patient denies pain. She continues to have significant dysphagia, and she failed the modified barium swallow today, with ST recommending continued NPO status. She remains afebrile, and has no dyspnea. She has less anxiety now that multiple family members are here with her. After our discussions yesterday and then further discussions with her family last night and today, the patient has decided to proceed with PEG tube and to attempt rehabilitation. "I am determined." . Family/friend interactions Patient's son, [id number], daughter, granddaughter, and a friend are all at bedside. We again discussed the options, and the patient has elected to proceed ahead with PEG tube and rehabilitation. . Advance Directives Living Will: Copy in medical record Health Care Surrogate: Copy in medical record Advance Directive Specifics Health Care Surrogate(s): The patient's 2 sons are the primary and secondary HCS's. . Documented care wishes: Patient has a living will that states she does not want to be artificially prolonged if she has a terminal or end-stage condition. . Significant change in goals: She has decided to proceed ahead with PEG tube and placement in a rehabilitation center. 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 . Objective Vital Signs Date Time Temp Pulse Resp B/P Pulse Ox O2 Delivery O2 Flow Rate FiO2 08/10/16 12:37 98.1 103 18 168/79 97 08/10/16 08:00 97.8 83 18 151/76 97 08/10/16 04:04 97.2 95 18 151/74 95 08/10/16 00:19 97.6 97 20 148/75 98 08/09/16 21:19 98.2 96 16 155/80 97 08/09/16 20:17 Nasal Cannula 2.00 08/09/16 16:39 97.6 83 18 183/88 97 Intake & Output 08/10/16 08/10/16 07:00 19:00 Output Total 350 ml Balance -350 ml Output Urine Total 350 ml # Bowel Movements 0 Physical Exam CONSTITUTIONAL/GENERAL: This is an adequately nourished patient, in no apparent distress. SKIN: No jaundice, rashes, or lesions. Skin tears on left knee, bandage on the lower left leg. Skin temperature appropriate. Not diaphoretic. ENT: Hearing grossly normal. Nose without bleeding or purulent drainage. CARDIOVASCULAR: Regular rate and rhythm with grade 2 systolic murmur. No JVD. Peripheral pulses could not be palpated d.p. Or p.t. RESPIRATORY/CHEST: Symmetric, unlabored respirations. Clear to auscultation. Breath sounds equal bilaterally. A couple rhonchi are present in each lung. GASTROINTESTINAL: Abdomen soft, non-tender, nondistended. No hepato-splenomegaly , or palpable masses. No guarding. Bowel sounds present. GENITOURINARY: Without palpable bladder distension. Epstein catheter in place. MUSCULOSKELETAL: Extremities without clubbing, cyanosis, or edema. No joint tenderness or effusion noted. No calf tenderness. No mottling or clubbing. NEUROLOGICAL: Awake and alert. Left arm and leg flaccid, hemiplegia. Follows commands. Cognitively sharp. Moves all extremities. PSYCHIATRIC: No obvious anxiety/depression. No apparent hallucinations or other psychotic thought process. . Diagnostic Tests Laboratory Laboratory Tests Test 08/08/16 08/09/16 08/10/16 05:51 03:23 04:00 White Blood Count 28.8 TH/MM3 29.7 TH/MM3 29.5 TH/MM3 (4.0-11.0) (4.0-11.0) (4.0-11.0) Red Blood Count 4.26 MIL/MM3 4.29 MIL/MM3 4.08 MIL/MM3 (4.00-5.30) (4.00-5.30) (4.00-5.30) Hemoglobin 11.2 GM/DL 11.3 GM/DL 10.9 GM/DL (11.6-15.3) (11.6-15.3) (11.6-15.3) Hematocrit 35.4 % 35.6 % 33.7 % (35.0-46.0) (35.0-46.0) (35.0-46.0) Mean Corpuscular Volume 83.0 FL 82.9 FL 82.6 FL (80.0-100.0) (80.0-100.0) (80.0-100.0) Mean Corpuscular Hemoglobin 26.4 PG 26.2 PG 26.7 PG (27.0-34.0) (27.0-34.0) (27.0-34.0) Mean Corpuscular Hemoglobin 31.8 % 31.6 % 32.3 % Concent (32.0-36.0) (32.0-36.0) (32.0-36.0) Red Cell Distribution Width 14.4 % 14.8 % 14.7 % (11.6-17.2) (11.6-17.2) (11.6-17.2) Platelet Count 236 TH/MM3 253 TH/MM3 259 TH/MM3 (150-450) (150-450) (150-450) Mean Platelet Volume 9.4 FL 8.8 FL 9.2 FL (7.0-11.0) (7.0-11.0) (7.0-11.0) Haptoglobin 195 MG/DL (30-200) Sodium Level 140 MEQ/L 138 MEQ/L 138 MEQ/L (136-145) (136-145) (136-145) Potassium Level 3.4 MEQ/L 3.4 MEQ/L 3.1 MEQ/L (3.5-5.1) (3.5-5.1) (3.5-5.1) Chloride Level 103 MEQ/L 104 MEQ/L 102 MEQ/L (98-107) (98-107) (98-107) Carbon Dioxide Level 28.3 MEQ/L 27.3 MEQ/L 28.7 MEQ/L (21.0-32.0) (21.0-32.0) (21.0-32.0) Anion Gap 9 MEQ/L (5-15) 7 MEQ/L (5-15) 7 MEQ/L (5-15) Blood Urea Nitrogen 16 MG/DL (7-18) 17 MG/DL (7-18) 14 MG/DL (7-18) Creatinine 0.87 MG/DL 0.72 MG/DL 0.70 MG/DL (0.50-1.00) (0.50-1.00) (0.50-1.00) Estimat Glomerular Filtration 62 ML/MIN (>89) 78 ML/MIN (>89) 80 ML/MIN (>89) Rate Random Glucose 96 MG/DL 115 MG/DL 97 MG/DL (74-106) (74-106) (74-106) Calcium Level 8.6 MG/DL 8.3 MG/DL 8.4 MG/DL (8.5-10.1) (8.5-10.1) (8.5-10.1) Lactate Dehydrogenase 236 U/L (84-246) Total Protein 6.5 GM/DL (6.0-7.6) Albumin 3.63 GM/DL (3.50-5.00) Albumin/Globulin Ratio 1.26 (1.39-2.23) Tniai-9-Xewcjzsdt 0.32 GM/DL (0.11-0.29) Sgyoi-4-Vzrejlujd 0.86 GM/DL (0.22-1.00) Beta Globulins 0.83 GM/DL (0.53-1.03) Gamma Globulins 0.86 GM/DL (0.50-1.39) Electrophoresis Pathologist Comment Immunophenotypic Analysis (T) Result Diagram: 08/10/1639908/10/16399 Imaging Last Impressions Abdomen Ultrasound 08/08/16 0000 Signed Impressions: Service Date/Time: Monday, August 08, 2016 08:55 - CONCLUSION: 1. The spleen is normal size. 2. Small left pleural effusion. 3. Bilateral cystic lesions in the liver, with one lesion in the midpole the right side measure 1.2 cm containing low level internal echoes and a 7 mm isoechoic lesion on the left side. Most of these probably represent complicated cysts. 4. Small amount of perinephric, possibly subcapsular, fluid adjacent to the midpole of the left kidney. 5. Maximum dimension of the abdominal aorta is within normal limits, but luminal irregularity to suggest arteriosclerotic disease. Fernando Radford MD Abdomen X-Ray 08/07/16 0000 Signed Impressions: Service Date/Time: Sunday, August 07, 2016 23:44 - CONCLUSION: Normal examination. Nasogastric is coiled within the stomach. Tip is in the distal stomach. Dusty Gamino MD Chest X-Ray 08/06/16 0000 Signed Impressions: Service Date/Time: Saturday, August 06, 2016 07:23 - CONCLUSION: Mild interstitial infiltrate right upper lung. Patrick Nieto MD Head Magnetic Resonance Angiography 08/05/16 Signed Impressions: Service Date/Time: Friday, August 05, 2016 11:13 - CONCLUSION: Significant improvement in the flow within the right M1 and ALONDRA since the study from 08/04/2016. Pam Sanchez MD Carotid Artery Ultrasound 08/05/16 Signed Impressions: Service Date/Time: Friday, August 05, 2016 12:06 - CONCLUSION: No evidence for hemodynamically significant stenosis. Pam Sanchez MD Brain MRI 08/05/16 Signed Impressions: Service Date/Time: Friday, August 05, 2016 11:13 - CONCLUSION: Acute infarctions on the right side without hemorrhage or mass effect. Pam Sanchez MD Neck CTA 08/04/162210 Signed Impressions: Service Date/Time: Thursday, August 04, 2016 22:18 - CONCLUSION: 1. There is 50-60%% stenosis at the origin of the right internal carotid artery. There is 20-30%% stenosis on the left 2. Extensive calcific plaque involving the cavernous carotid arteries bilaterally Harsh Card MD Head/Neck CTA with Brain Perfusion 08/04/162210 Signed Impressions: Service Date/Time: Thursday, August 04, 2016 22:15 - CONCLUSION: 1. Flow/ volume mismatch involving the posterior right temporal lobe 1. Harsh Card MD Head CTA 08/04/162210 Signed Impressions: Service Date/Time: Thursday, August 04, 2016 22:18 - CONCLUSION: 1. Occlusion of the right M1 segment of the middle cerebral artery. 2. Occlusion of the distal right anterior cerebral artery Harsh Card MD Head CT 08/04/16 Signed Impressions: Service Date/Time: Thursday, August 04, 2016 22:11 - CONCLUSION: 1. No acute findings. Chronic appearing white matter ischemic changes. Tin Romero MD Cerebral Arteriogram 08/04/16 Signed Impressions: Service Date/Time: Friday, August 05, 2016 00:38 - CONCLUSION: Peripheral vascular disease with right iliac occlusion. Patent M1 segment of the right middle cerebral artery with interval resolution of an obstructing thrombus following intravenous thrombolytic therapy. No endovascular thrombectomy performed. Ravi Stacy MD Procedures tPA - 08/06/18 . Assessment and Plan Disease Oriented Problem List: (1) acute right MCA stroke (2) chronic atrial fibrillation (3) peripheral vascular disease (4) leukocytosis with majority lymphocytes (5) left leg, nonhealing ulcer (6) hypothyroidism (7) hyperlipidemia (8) hypertension Symptom Scale: (1) anxiety 0-10 Scale: 1 (2) dysphagia 0-10 Scale: Unable to quantify (severe) (3) cough 0-10 Scale: 1 Pertinent Non-Medical Issues Psychosocial: , was living alone. 2 sons and 1 daughter Spiritual: Not spiritual or uatsdin Legal: Although the patient does have some speech difficulty, she is oriented and has a good understanding of her medical conditions. She has capacity for decision-making. She has designated her 2 sons as HCS's when she loses capacity. Ethical issues impacting care: None . Important Contacts Daughter: Zena Cisneros Son: Sebastien Farley [phone] . Prognosis The patient's neurologic deficits have not improved to this point in time. Given her age and her recent gradual decline in strength, she is likely to have additional complications including the possibilities of pneumonia, additional strokes, other complications of PVD, etc. She would be appropriate for hospice services if her goals become completely comfort oriented. . Code Status: No Code Plan * DO NOT RESUSCITATE * GOALS: She has decided to proceed ahead with PEG tube and placement in a rehabilitation center. 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 The patient and family are hoping she will qualify for [facility]....Case Management notified. * DECISION-MAKING: Although the patient does have some speech difficulty, she is oriented and has a good understanding of her medical conditions. She has capacity for decision-making at this time. She has designated her 2 sons as HCS 's when she loses capacity. * SYMPTOMS: Her dysphagia is severe, and she has a high risk for aspiration ( she is already coughing); however, she is not dyspneic at this time. He does have some anxiety intermittently, but that is improved since her family is all here. She does not have pain at this time. * Palliative Care will continue to follow the patient during this hospitalization. . Time Spent Total Floor Time (mins): 39 Face to Face Time (mins): 22 >50% Counseling/Coord of Care: Yes (d/w Komal varela) Attestation To help prompt me to consider important information that might be impacting today's encounter and assessment, information from prior notes written by myself or my colleagues may have been "brought forward" into today's note. My signature on this note, however, is an attestation that I personally performed the exam, history, and/or decision-making noted today, and, unless otherwise indicated, the interactions with patient, family, and staff as well as the review of records all occurred today. I also attest that the listed assessment and stated plan reflect my best clinical judgment today based on the combination of historical information, prior notes, and today's exam/ interactions. When time spent is documented, it refers only to time spent today by the signer, or if indicated, combined time spent today by collaborating physician/nurse practitioner. Tiffany Godinez MD Aug 10, 2016 12:54
[2016-08-10] MEDS: RESP: ALBUTEROL 2.5 MG/IPRATROPIUM 0.5 MG NEB (PRN) INH (13:04)
[2016-08-10] MEDS: ENALAPRILAT 1.25 MG/ML VIAL IV PUSH PRN (13:09)
--- NOTE | 2016-08-10 13:09 | PD.CONS ---
HPI History of Present Illness This is a 81 year old female with a hx of atrial fibrillation, hypertension, and peripheral vascular disease, who recently decided to stop her coumadin and take daily aspirin about 6 weeks ago and presented to the ER with sudden difficulty speaking and left sided weakness. She was brought to the ER as a Stroke Alert. Imaging studies----> CT brain scan with some hypodensity in the right cerebellar area but no acute findings, CTA of the head revealed right M1 segment of the MCA unoccluded, and the right ALONDRA also occlude distally, and CTA of the neck revealed 50-60% stenosis of the right internal carotid artery. She then went to interventional radiology and had TPA, The MCA clot was noted to be lysed and therefore no embolectomy was needed. She continues to have left sided hemiplegia and some slurred speech and continues to receive physical and occupational therapy. has since been undergoing PT/OT. Speech therapy has also been following for severe oral pharyngeal dysphagia. She underwent a modified barium swallow earlier today and this revealed severe oral phase and mild to moderate pharyngeal phase dysphagia with penetration and aspiration. Due to patient significant sensory and motor deficits in the oral and pharyngeal phase of the swallow, Mrs. Farley is at high risk for aspiration with all po intake. They have recommended that patient remain NPO with bypass feeding, continued speech therapy for dysphagia exercises, and vital stimulation with speech therapy when discharged to rehab. GI was consulted for PEG tube placement. I discussed EGD with PEG tube placement- procedure, risks, benefits with patient and family members and they are agreeable and would like to proceed as soon as possible. This was going to be planned for today, but we were informed by the Speech therapist that she actually had apple sauce, barium , and thickened liquids for the MBS. (Kymberly Arango) PFS Past Medical History Acute right MCA stroke Chronic atrial fibrillation Peripheral vascular disease Hypertension Hypothyroidism Hyperlipidemia Left leg nonhealing ulcer Past Surgical History Cataracts (Kymberly Arango) Coded Allergies: Bee Sting (Verified Allergy, Severe, swells, 08/04/16) Medications Allergies Coded Allergies Type Severity Reaction Last Updated Verified Bee Sting Allergy Severe swells 08/04/16 Yes Active Scripts Medications Dose Route/Sig Days Date Category Toprol XL (Metoprolol Succinate) 50 Mg Tab 50 Mg PO DAILY 08/05/16 Reported Aspirin Low Dose (Aspirin) 81 Mg Chew 81 Mg CHEW DAILY 4/16/17 Reported Losartan (Losartan Potassium) 100 Mg Tab 100 Mg PO DAILY 08/05/16 Reported Levothyroxine (Levothyroxine Sodium) 50 Mcg Tab 50 Mcg PO DAILY 08/05/16 Reported Amlodipine (Amlodipine Besylate) 5 Mg Tab 5 Mg PO DAILY 08/05/16 Reported Coumadin (Warfarin) 2 Mg Tab 2 Mg PO DAILY 08/05/16 Reported Family History Patient's mother at age 84 of a stroke, and multiple maternal aunts and uncles also had strokes. The patient's father of an MS. . Social History No use of tobacco, occasional etoh (Kymberly Arango) Review of Systems Constitutional: COMPLAINS OF: Fatigue Respiratory: COMPLAINS OF: Cough, DENIES: Shortness of breath Cardiovascular: DENIES: Chest pain Gastrointestinal: COMPLAINS OF: Difficulty Swallowing, DENIES: Abdominal pain Musculoskeletal: COMPLAINS OF: Joint pain Hematologic/lymphatic: COMPLAINS OF: Bruising Neurologic: COMPLAINS OF: Localized weakness, Paresthesias (Kymberly Arango) GI Exam Vitals I&O Vital Signs Date Time Temp Pulse Resp B/P Pulse Ox O2 Delivery O2 Flow Rate FiO2 08/10/16 12:37 98.1 103 18 168/79 97 08/10/16 08:00 97.8 83 18 151/76 97 08/10/16 04:04 97.2 95 18 151/74 95 08/10/16 00:19 97.6 97 20 148/75 98 08/09/16 21:19 98.2 96 16 155/80 97 08/09/16 20:17 Nasal Cannula 2.00 08/09/16 16:39 97.6 83 18 183/88 97 I/O 08/09/16 08/09/16 08/09/16 08/10/16 08/10/16 08/10/16 07:00 15:00 23:00 07:00 15:00 23:00 Intake Total 1360 ml 1332 ml Output Total 700 ml 450 ml 350 ml Balance 660 ml -450 ml 1332 ml -350 ml IV Total 700 ml 1332 ml Tube Feeding 360 ml Other 300 ml Output Urine Total 700 ml 450 ml 350 ml # Bowel Movements 2 0 Imaging Last Impressions Abdomen Ultrasound 08/08/16 0000 Signed Impressions: Service Date/Time: Monday, August 08, 2016 08:55 - CONCLUSION: 1. The spleen is normal size. 2. Small left pleural effusion. 3. Bilateral cystic lesions in the liver, with one lesion in the midpole the right side measure 1.2 cm containing low level internal echoes and a 7 mm isoechoic lesion on the left side. Most of these probably represent complicated cysts. 4. Small amount of perinephric, possibly subcapsular, fluid adjacent to the midpole of the left kidney. 5. Maximum dimension of the abdominal aorta is within normal limits, but luminal irregularity to suggest arteriosclerotic disease. Fernando Radford MD Abdomen X-Ray 08/07/16 0000 Signed Impressions: Service Date/Time: Sunday, August 07, 2016 23:44 - CONCLUSION: Normal examination. Nasogastric is coiled within the stomach. Tip is in the distal stomach. Dusty Gamino MD Chest X-Ray 08/06/16 0000 Signed Impressions: Service Date/Time: Saturday, August 06, 2016 07:23 - CONCLUSION: Mild interstitial infiltrate right upper lung. Patrick Nieto MD Head Magnetic Resonance Angiography 08/05/16 0000 Signed Impressions: Service Date/Time: Friday, August 05, 2016 11:13 - CONCLUSION: Significant improvement in the flow within the right M1 and ALONDRA since the study from 08/04/2016. Pam Sanchez MD Carotid Artery Ultrasound 08/05/16 0000 Signed Impressions: Service Date/Time: Friday, August 05, 2016 12:06 - CONCLUSION: No evidence for hemodynamically significant stenosis. Pam Sanchez MD Brain MRI 08/05/16 0000 Signed Impressions: Service Date/Time: Friday, August 05, 2016 11:13 - CONCLUSION: Acute infarctions on the right side without hemorrhage or mass effect. Pam Sanchez MD Neck CTA 08/04/162210 Signed Impressions: Service Date/Time: Thursday, August 04, 2016 22:18 - CONCLUSION: 1. There is 50-60%% stenosis at the origin of the right internal carotid artery. There is 20-30%% stenosis on the left 2. Extensive calcific plaque involving the cavernous carotid arteries bilaterally Harsh Card MD Head/Neck CTA with Brain Perfusion 08/04/162210 Signed Impressions: Service Date/Time: Thursday, August 04, 2016 22:15 - CONCLUSION: 1. Flow/ volume mismatch involving the posterior right temporal lobe 1. Harsh Card MD Head CTA 08/04/162210 Signed Impressions: Service Date/Time: Thursday, August 04, 2016 22:18 - CONCLUSION: 1. Occlusion of the right M1 segment of the middle cerebral artery. 2. Occlusion of the distal right anterior cerebral artery Harsh Card MD Head CT 08/04/16 0000 Signed Impressions: Service Date/Time: Thursday, August 04, 2016 22:11 - CONCLUSION: 1. No acute findings. Chronic appearing white matter ischemic changes. Tin Romero MD Cerebral Arteriogram 08/04/16 0000 Signed Impressions: Service Date/Time: Friday, August 05, 2016 00:38 - CONCLUSION: Peripheral vascular disease with right iliac occlusion. Patent M1 segment of the right middle cerebral artery with interval resolution of an obstructing thrombus following intravenous thrombolytic therapy. No endovascular thrombectomy performed. Ravi Stacy MD Laboratory Test 08/10/16 04:00 White Blood Count 29.5 TH/MM3 Red Blood Count 4.08 MIL/MM3 Hemoglobin 10.9 GM/DL Hematocrit 33.7 % Mean Corpuscular Volume 82.6 FL Mean Corpuscular Hemoglobin 26.7 PG Mean Corpuscular Hemoglobin 32.3 % Concent Red Cell Distribution Width 14.7 % Platelet Count 259 TH/MM3 Mean Platelet Volume 9.2 FL Sodium Level 138 MEQ/L Potassium Level 3.1 MEQ/L Chloride Level 102 MEQ/L Carbon Dioxide Level 28.7 MEQ/L Anion Gap 7 MEQ/L Blood Urea Nitrogen 14 MG/DL Creatinine 0.70 MG/DL Estimat Glomerular Filtration 80 ML/MIN Rate Random Glucose 97 MG/DL Calcium Level 8.4 MG/DL Date/Time Procedure Status Source Growth 08/05/16 23:00 Aerobic Blood Culture - Final Complete Blood Peripheral NO GROWTH IN 5 DAYS 08/05/16 23:00 Anaerobic Blood Culture - Final Complete Blood Peripheral NO GROWTH IN 5 DAYS Physical Examination HEENT: Normocephalic; atraumatic; no jaundice. CHEST: CTA CARDIAC: Irregular ABDOMEN: Soft, nondistended, nontender; no hepatosplenomegaly; bowel sounds are present in all four quadrants. EXTREMITIES: No clubbing, cyanosis, or edema. SKIN: Normal; no rash; no jaundice. 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 (Kymberly Arango) Assessment and Plan Plan ASSESSMENT: - Dysphagia. ST following for severe oral pharyngeal dysphagia. S/P MBS ()----> severe oral phase and mild to moderate pharyngeal phase dysphagia with penetration and aspiration. Due to patient significant sensory and motor deficits in the oral and pharyngeal phase of the swallow, Mrs. Farley is at high risk for aspiration with all po intake. They have recommended that patient remain NPO with bypass feeding, continued speech therapy for dysphagia exercises, and vital stimulation with speech therapy when discharged to rehab. I discussed EGD with PEG tube placement- procedure, risks, benefits with patient and family members and they are agreeable and would like to proceed as soon as possible. This was going to be planned for today, but we were informed by the Speech therapist that she actually had apple sauce, barium, and thickened liquids for the MBS. We will try to arrange for tomorrow- d/w family, agreeable. - CVA. Came in for stroke alert with garbled speech and left sided weakness. CT brain scan with some hypodensity in the right cerebellar area but no acute findings, CTA of the head revealed right M1 segment of the MCA unoccluded, and the right ALONDRA also occlude distally, and CTA of the neck revealed 50-60% stenosis of the right internal carotid artery. She then went to interventional radiology and had TPA, The MCA clot was noted to be lysed and therefore no embolectomy was needed. PT/OT/ST. - Atrial fibrillation. Heparin on hold. ASA. - Leukocytosis. Hematology following, peripheral smear strongly suggestive for CLL. - HTN, PVD, per primary. PLAN: - Plan for egd with peg tube placement tomorrow - Obtain consents - NPO - Cont. ST - On Zosyn. - Supportive care - Of note, inspector repairer sandstone recommends Jevity 1.5 @ 50 mls/hr goal - Further recommendations to follow based on results of above - Pt seen and examined by Dr. Gutierrez and myself and this note is written on her behalf (Kymberly Arango) Physician Comments seen, examined agree with above (Sharee Gutierrez MD) ArangoKymberly lund Karlene CARRERO Aug 10, 2016 13:09 Sharee Gutierrez MD Aug 10, 2016 16:02
[2016-08-10] MEDS: POTASSIUM CHLOR 10 MEQ PREMIX 100 ML IV SCH ×3 (13:10→23:00)
--- NOTE | 2016-08-10 13:40 | RADRPT ---
EXAM DATE/TIME: 08/10/2016 09:24 [place] COMPARISON: No previous studies available for comparison. INDICATIONS : Dysphagia FLUORO TIME: 3.7 minutes IMAGE COUNT: 1 CONTRAST: Dose as prescribed by speech pathologist. MEDICAL HISTORY : Stroke. SURGICAL HISTORY : None. ENCOUNTER: Subsequent ACUITY: 2 weeks PAIN SCORE: 0/10 LOCATION: Esophagus FINDINGS: A modified barium swallow was performed with speech pathology. Patient was given a variety of liquids to swallow. Modified barium swallow was performed with speech pathology. The patient has very discoordinated ora l phase of swallowing with laryngeal penetration and aspiration. For a full detailed report, see report by the speech pathologist. CONCLUSION: Aspiration, please see speech pathologist report. Elfego Flowers MD FACR on August 10, 2016 at 13:37 Board Certified Radiologist. This report was verified electronically.
[2016-08-10] MEDS: PANTOPRAZOLE SODIUM 40 MG VIAL IV PUSH SCH (15:00)
[2016-08-10] MEDS: DEXT 5%-NACL 0.9% 1000 ML INJ 1,000 ML IV SCH (15:00)
--- NOTE | 2016-08-10 15:14 | GIPROC ---
[facility] [address] [facility]. [facility], [address] EGD WITH PEG PROCEDURE REPORT EXAM DATE: 08/10/2016 PATIENT NAME: Zena Farley MR#: [id number] BIRTHDATE: 1935 ATTENDING: Sharee Gutierrez MD ORDER #: [id number] LEAD PROCESS ENGINEER: Genaro Vega and Niesha Ashby STATUS: inpatient INDICATIONS: The patient is a 81 yr old female here for an EGD with PEG due to dysphagia PROCEDURE PERFORMED: EGD with biopsy EGD with PEG placement MEDICATIONS: Per Anesthesia and None. TOPICAL ANESTHETIC: none CONSENT: The patient understands the risks and benefits of the procedure and understands that these risks include, but are not limited to: sedation, allergic reaction, infection, perforation and/or bleeding. Alternative means of evaluation and treatment include, among others: physical exam, x-rays, and/or surgical intervention. The patient elects to proceed with this endoscopic procedure. medical equipment was checked for proper function. Hand hygiene and appropriate measures for infection prevention was taken. After the risks, benefits and alternatives of the procedure were thoroughly explained, Informed consent was verified, confirmed and timeout was successfully executed by the treatment team. The patient was anesthetized with topical anesthesia and the Pentax [id number] endoscope was introduced through the mouth and advanced to the second portion of the duodenum. The instrument was slowly withdrawn as the mucosa was fully examined. Mild gastritis was found in the antrum. biopsy The stomach was then inflated with air, and by a combination of transillumination and manual palpation, the site for the gastrostomy tube placement was selected and marked on the anterior abdominal wall. The skin of the anterior abdomen was surgically prepped and draped with sterile towels. Utilizing strict sterile technique, the selected site was then anesthetized with 1% xylocaine by injection into the skin and subcutaneous tissue. A 1 cm incision was made through the skin and subcutaneous tissue, and the needle/cannula assembly was then passed through the abdominal wall and through the anterior wall of the stomach, maintaining visualization with the endoscope. A snare device previously placed through the instrument channel was then opened and placed around the cannula, the needle was removed, and the insertion wire was passed through the cannula and into the stomach lumen. The snare was then loosened from the cannula, and repositioned to snare the insertion wire. The snare was then pulled up to the endoscope distal tip, and the scope was then withdrawn bringing with it the snare and insertion wire. The insertion wire was then released from the snare, and then loop-attached to the gastrostomy tube. Using the "pull technique", the G-tube was then pulled into place by traction on the insertion wire at the abdominal wall end. The G-tube insertion site was then cleansed once again, and the external bolster was placed over the tube to secure it to the abdominal wall. A sterile dressing was then applied, and the procedure terminated. a hiatal hernia The gastroscope was then slowly withdrawn and removed. ADVERSE EVENT: There were no complications. IMPRESSIONS: 1. Mild gastritis was found in the antrum 2. A hiatal hernia 3. s/p peg RECOMMENDATIONS: 1. Anti-reflux regimen 2. Await biopsy results. Biopsy results will not be ready for 7-10 days. If you don't hear from us in two weeks, call our office for biopsy results. 3.may use peg for medications only today 4. tube feeding in am REPEAT EXAM: EGD pending biopsy results Sharee Gutierrez MD eSigned: Sharee Gutierrez MD 08/10/2016 3:13 PM cc: PATIENT NAME: Zena Farley MR#: [id number]
[2016-08-10] MEDS ORDERED: DO NOT ADM ANY ANTICOAGULANT DRUGS PRN ×2 (15:40→16:00)
[2016-08-10] MEDS ORDERED: PROPOFOL 200 MG/20 ML AMP IV ONE (16:02)
[2016-08-11] VITALS (10 sets, daily range): BP systolic 156–184; BP diastolic 74–84; PULSE 76–95; RESP 17–18; TEMP 95.1–98.8; O2SAT 92–96
[2016-08-11] MEDS: PIPERACIL-TAZO 3.375 GM PREMIX 50 ML IV SCH ×4 (03:13→22:04)
[2016-08-11] MEDS: ENALAPRILAT 1.25 MG/ML VIAL IV PUSH PRN ×2 (03:22→09:43)
[2016-08-11] MEDS: METOPROLOL TARTRATE 25 MG TAB NG SCH ×3 (05:51→22:04)
[2016-08-11] MEDS: INSULIN NovoLIN REGULAR SUPPLEMENTAL SCALE SQ SCH ×4 (05:51→17:51)
[2016-08-11 07:58] LABS: MEAN CELL VOLUME 82.8 FL (80.0-100.0); MEAN CORPUSCULAR HEMOGLOBIN 26.4 PG (27.0-34.0); MEAN CORPUSCULAR HGB CONC 31.8 % (32.0-36.0); PLATELET COUNT 242 TH/MM3 (150-450); RED CELL DISTRIBUTION WIDTH 14.4 % (11.6-17.2); WHITE BLOOD COUNT 34.1 TH/MM3 (4.0-11.0)
[2016-08-11 08:04] LABS: REVIEW FLAG FINAL
[2016-08-11 08:33] LABS: BICARBONATE 27.5 MEQ/L (21.0-32.0); POTASSIUM 3.7 MEQ/L (3.5-5.1)
[2016-08-11] MEDS: SODIUM CHLORIDE 0.9% FLUSH 10 ML FLUSH IV FLUSH SCH ×2 (09:00→22:05)
[2016-08-11] MEDS: DOCUSATE SODIUM 50 MG/SENNA 8.6 MG TAB NG SCH ×2 (09:41→22:05)
[2016-08-11] MEDS: ASPIRIN 300 MG SUPP RECTAL SCH (09:42)
[2016-08-11] MEDS: COLLAGENASE OINT 30 GM TUBE TOPICAL SCH (09:42)
[2016-08-11] MEDS: DEXT 5%-NACL 0.9% 1000 ML INJ 1,000 ML IV SCH (11:07)
[2016-08-11] MEDS: cloNIDine HCL 0.1 MG TAB NG PRN (11:58)
--- NOTE | 2016-08-11 13:44 | HHI.PR ---
Subjective Remarks Patient laying in bed comfortably awake alert afebrile Her family at the bedside including her daughter with whom I discussed They would like to go to [facility] rehabilitation Patient had her PEG tube yesterday plan on being assessed by Pedro Objective Vitals Vital Signs Date Time Temp Pulse Resp B/P Pulse Ox O2 Delivery O2 Flow Rate FiO2 08/11/16 12:00 97.7 79 18 172/74 93 08/11/16 08:00 97.9 76 18 166/83 96 08/11/16 06:28 164/77 08/11/16 03:36 169/79 08/11/16 03:23 97.6 82 17 184/74 94 08/11/16 00:48 98.8 84 17 159/84 96 08/10/16 20:55 99.2 83 18 158/73 94 08/10/16 17:56 99 Nasal Cannula 2.00 08/10/16 16:00 79 16 127/72 99 Nasal Cannula 4 08/10/16 16:00 98.1 89 18 149/72 99 08/10/16 15:45 88 16 131/77 99 Nasal Cannula 4 08/10/16 15:30 97.4 101 16 115/78 99 Nasal Cannula 4 I/O 08/10/16 08/10/16 08/10/16 08/11/16 08/11/16 08/11/16 07:00 15:00 23:00 07:00 15:00 23:00 Intake Total 200 ml Output Total 350 ml 500 ml 0 ml 600 ml Balance -350 ml -500 ml 200 ml -600 ml Intake Oral 0 ml IV Total 100 ml Other 100 ml Output Urine Total 350 ml 500 ml 0 ml 600 ml Estimated Blood Loss 0 ml Other 0 ml # Bowel Movements 0 1 Result Diagram: 08/11/16 0736 08/11/1636 Objective Remarks - GENERAL: This is a well-nourished, frail elderly lady well-developed patient , in no apparent distress. SKIN: No rashes, warm and dry HEAD: Atraumatic. Normocephalic. EYES: Pupils equal round and reactive. ENT: Nose without bleeding, or drainage, Airway patent. NECK: Trachea midline. Supple CARDIOVASCULAR: Regular rate and rhythm RESPIRATORY: Fair air entry bilaterally. No wheezes, rales, or rhonchi. GASTROINTESTINAL: Abdomen soft, non-tender, nondistended. Positive bowel sounds MUSCULOSKELETAL: Extremities without clubbing, cyanosis, or edema. Pedal pulses appreciated NEUROLOGICAL: Awake and alert. Flaccid upper and lower left extremity with facial asymmetry Date of Insertion: Aug 04, 2016 A/P Assessment and Plan 08/11:D/W patient and her daughter and the nurse, PEG tube placed, monitor electrolyte and PEG tube function, awaiting assessment from [facility], embedded case manager working on placement, blood pressure is uncontrolled patient is 7 days post TPA, will start lisinopril for pressure optimization A/P: Assessment: This is a 81yF right handed female with history of atrial fibrillation who stopped taking her Coumadin and now is found to have a right MCA CVA with proximal flow cut-off on CTA. She is actively receiving systemic TPA and is being transported now to interventional neuroradiology for potential mechanical thrombectomy-By that time thrombus was lysed and embolectomy not performed. She remains critically ill at this time. We will keep tight BP control with target sbp < 180. Strict q1h neuro checks. monitor for signs of bleeding. Dr. Dc had discussions with Dr. Stacy and Dr. Yuan and Dr. Leal and we are all in agreement with this course of action. Acute right MCA CVA -- s/p systemic TPA. Went to IR 08/04 for possible mechanical thrombectomy, but thrombus has already lysed -- stroke precautions -- Neuro following: Dr. Yuan -- FLp reviewed HDL50, LDL90 , differed starting statin for neurology, risk may outweigh the benefit in he age and fpl reading -- ASA -- PT/OT/ST- neuro exam- stable Dysphagia due to CVA - for modified Barium swallow today 08/10 - - Status post PEG tube placement 08/10 Atrial Fibrillation, -Intermitted - rate controlled Hypertensive Emergency -- will require anticoagulation. hold off for now in the setting of immediate post TPA, to be followed by neurology as an outpatient -- 2d echo- unremarkable Aspiration Pneumonia -- daily CBC-Leukocytosis- secondary to CLL too -- Zosyn for possible aspiration PNA coverage-- + right upper infiltrate -- monitor for signs of active bleeding post-TPA -- wean o2 by nc for goal spo2 > 92% -- aggressive pulmonary toilet. CLL -chronic marked leukocytosis -- Hematology will be following as an outpatient Gaurang Laws MD Aug 11, 2016 13:44
[2016-08-11] MEDS: LISINOPRIL 5 MG TAB PO SCH (14:15)
[2016-08-11] MEDS: PANTOPRAZOLE SODIUM 40 MG VIAL IV PUSH SCH (14:39)
[2016-08-11] MEDS ORDERED: LOPERAMIDE HCL 2 MG CAP PO PRN (18:45)
[2016-08-11] MEDS: SODIUM CHLOR 0.9% 1000 ML INJ 1,000 ML IV SCH (21:30)
[2016-08-12] VITALS (9 sets, daily range): BP systolic 144–163; BP diastolic 70–83; PULSE 71–96; RESP 16–20; TEMP 95.6–98.5; O2SAT 92–99
[2016-08-12] MEDS: INSULIN NovoLIN REGULAR SUPPLEMENTAL SCALE SQ SCH ×4 (00:43→17:28)
[2016-08-12] MEDS: FREE WATER PEG SCH ×4 (00:44→17:28)
[2016-08-12] MEDS: PIPERACIL-TAZO 3.375 GM PREMIX 50 ML IV SCH ×4 (03:09→22:10)
[2016-08-12] MEDS: CHLORHEXIDINE GLUCONATE 2 % 1 PACK (2 CLOTHS) TOP SCH (03:12)
[2016-08-12] MEDS: METOPROLOL TARTRATE 25 MG TAB NG SCH ×3 (06:26→22:10)
[2016-08-12 06:35] LABS: BICARBONATE 26.6 MEQ/L (21.0-32.0); POTASSIUM 3.4 MEQ/L (3.5-5.1)
[2016-08-12] MEDS: ASPIRIN 300 MG SUPP RECTAL SCH (09:55)
[2016-08-12] MEDS: COLLAGENASE OINT 30 GM TUBE TOPICAL SCH (09:55)
[2016-08-12] MEDS: LISINOPRIL 5 MG TAB PO SCH (09:55)
[2016-08-12] MEDS: DOCUSATE SODIUM 50 MG/SENNA 8.6 MG TAB NG SCH ×2 (09:55→21:00)
[2016-08-12] MEDS: SODIUM CHLORIDE 0.9% FLUSH 10 ML FLUSH IV FLUSH SCH ×2 (09:55→21:00)
[2016-08-12] MEDS ORDERED: ASPI325T PO (13:22)
[2016-08-12] MEDS ORDERED: METO25TA3 NG (13:22)
[2016-08-12] MEDS: PANTOPRAZOLE SODIUM 40 MG VIAL IV PUSH SCH (15:09)
[2016-08-12] MEDS: SODIUM CHLOR 0.9% 1000 ML INJ 1,000 ML IV SCH (21:30)
[2016-08-13] VITALS: BP 154/75; PULSE 79; RESP 18; TEMP 97.8; O2SAT 92
[2016-08-13] MEDS: PIPERACIL-TAZO 3.375 GM PREMIX 50 ML IV SCH ×3 (03:06→13:56)
[2016-08-13] MEDS: CHLORHEXIDINE GLUCONATE 2 % 1 PACK (2 CLOTHS) TOP SCH (03:08)
[2016-08-13 04:00] VITALS: BP 177/80; PULSE 95; RESP 20; TEMP 97.9; O2SAT 96
[2016-08-13] MEDS: cloNIDine HCL 0.1 MG TAB NG PRN (04:18)
[2016-08-13] MEDS: FREE WATER PEG SCH ×3 (05:44→11:36)
[2016-08-13] MEDS: METOPROLOL TARTRATE 25 MG TAB NG SCH ×2 (05:44→13:49)
[2016-08-13] MEDS: INSULIN NovoLIN REGULAR SUPPLEMENTAL SCALE SQ SCH ×3 (05:44→11:36)
[2016-08-13 05:45] VITALS: BP 166/81
[2016-08-13] MEDS: SODIUM CHLORIDE 0.9% FLUSH 10 ML FLUSH IV FLUSH SCH (08:40)
[2016-08-13] MEDS: ASPIRIN 300 MG SUPP RECTAL SCH (08:41)
[2016-08-13] MEDS: COLLAGENASE OINT 30 GM TUBE TOPICAL SCH (08:41)
[2016-08-13] MEDS: DOCUSATE SODIUM 50 MG/SENNA 8.6 MG TAB NG SCH (08:41)
[2016-08-13] MEDS: LISINOPRIL 5 MG TAB PO SCH (08:41)
[2016-08-13 08:55] VITALS: BP 138/84; PULSE 77; RESP 20; TEMP 97; O2SAT 95
--- NOTE | 2016-08-13 09:25 | HHI.PR ---
Subjective Remarks Delayed entry note from 07/12 Patient seen and examined and discussed with her and her family The plan was to discharge patient to SNF or to [facility] rehabilitation however due to not being accepted as I was told by the showcase maker patient stayed in-house Acute issue or new neuro symptoms Objective Vitals Vital Signs Date Time Temp Pulse Resp B/P Pulse Ox O2 Delivery O2 Flow Rate FiO2 08/13/16 09:09 Room Air 08/13/16 08:55 97.0 77 20 138/84 95 08/13/16 05:45 166/81 08/13/16 04:00 97.9 95 20 177/80 96 08/13/16 00:00 97.8 79 18 154/75 92 08/12/16 21:00 71 08/12/16 21:00 100 Nasal Cannula 2.00 08/12/16 20:00 97.7 94 20 163/77 92 08/12/16 16:00 97.1 91 20 144/70 98 08/12/16 12:00 97.1 95 18 159/83 95 08/12/16 11:14 91 08/12/16 09:29 96 Nasal Cannula 2.00 I/O 08/12/16 08/12/16 08/12/16 08/13/16 08/13/16 08/13/16 07:00 15:00 23:00 07:00 15:00 23:00 Output Total 400 ml 350 ml 325 ml Balance -400 ml -350 ml -325 ml Output Urine Total 400 ml 350 ml 325 ml # Voids 1 Result Diagram: 08/11/16 0736 08/12/16 0552 Objective Remarks - GENERAL: This is a well-nourished, frail elderly lady well-developed patient , in no apparent distress. SKIN: No rashes, warm and dry HEAD: Atraumatic. Normocephalic. EYES: Pupils equal round and reactive. ENT: Nose without bleeding, or drainage, Airway patent. NECK: Trachea midline. Supple CARDIOVASCULAR: Regular rate and rhythm RESPIRATORY: Fair air entry bilaterally. No wheezes, rales, or rhonchi. GASTROINTESTINAL: Abdomen soft, non-tender, nondistended. Positive bowel sounds MUSCULOSKELETAL: Extremities without clubbing, cyanosis, or edema. Pedal pulses appreciated NEUROLOGICAL: Awake and alert. Flaccid upper and lower left extremity with facial asymmetry Date of Insertion: Aug 04, 2016 A/P Assessment and Plan 08/11:D/W patient and her daughter and the nurse, PEG tube placed, monitor electrolyte and PEG tube function, awaiting assessment from [facility], showcase maker working on placement, blood pressure is uncontrolled patient is 7 days post TPA, will start lisinopril for pressure optimization 08/12: Plan to discharge to SNF or [facility] today, lengthy discussion with family and patient in case management A/P: Assessment: This is a 81yF right handed female with history of atrial fibrillation who stopped taking her Coumadin and now is found to have a right MCA CVA with proximal flow cut-off on CTA. She is actively receiving systemic TPA and is being transported now to interventional neuroradiology for potential mechanical thrombectomy-By that time thrombus was lysed and embolectomy not performed. She remains critically ill at this time. We will keep tight BP control with target sbp < 180. Strict q1h neuro checks. monitor for signs of bleeding. Dr. Dc had discussions with Dr. Stacy and Dr. Yuan and Dr. Leal and we are all in agreement with this course of action. Acute right MCA CVA -- s/p systemic TPA. Went to IR 08/04 for possible mechanical thrombectomy, but thrombus has already lysed -- stroke precautions -- Neuro following: Dr. Yuan -- FLp reviewed HDL50, LDL90 , differed starting statin for neurology, risk may outweigh the benefit in he age and fpl reading -- ASA -- PT/OT/ST- neuro exam- stable Dysphagia due to CVA - for modified Barium swallow today 08/10 - - Status post PEG tube placement 08/10 Atrial Fibrillation, -Intermitted - rate controlled Hypertensive Emergency -- will require anticoagulation. hold off for now in the setting of immediate post TPA, to be followed by neurology as an outpatient -- 2d echo- unremarkable Aspiration Pneumonia -- daily CBC-Leukocytosis- secondary to CLL too -- Zosyn for possible aspiration PNA coverage-- + right upper infiltrate -- monitor for signs of active bleeding post-TPA -- wean o2 by nc for goal spo2 > 92% -- aggressive pulmonary toilet. CLL -chronic marked leukocytosis -- Hematology will be following as an outpatient Gaurang Laws MD Aug 13, 2016 09:25
--- NOTE | 2016-08-13 09:31 | HHI.DS ---
Discharge Summary Admission Date Aug 04, 2016 at 23:06 Discharge Date: Aug 13, 2016 Admitting Diagnosis (1) Acute embolic stroke ICD Code: I63.9 (2) HTN (hypertension) ICD Code: I10 (3) Afib ICD Code: I48.91 (4) Leukocytosis ICD Code: D72.829 (5) hyperlipidemia Procedures See below Brief History - From Admission This is an 81yF with acute onset of left-sided weakness at 21:30 tonight, witnessed. She was reportedly eating dinner with family when she slumped over. EMS was called. Reportedly she was previously on coumadin for atrial fibrillation but is no longer taking this and is only on aspirin. Her INR on admission is 0.9. Her NIH stroke scale on admission was 13. CT head was negative for acute bleed. CTA head/neck was + for right MCA flow cut off. She is getting systemic TPA in the ER and neurointerventional radiology has been alerted to assist with possible endovascular intervention. Critical Care medicine is consulted to evaluate and manage her post-TPA stroke care and hemodynamics. Of note, given her acute symptoms and severe dysarthria, I cannot obtain any additional history from the patient. I did arrive to evaluate the patient when she was in the CT scanner in the emergency department. CBC/BMP: 08/11/16 0736 08/12/16 0552 Significant Findings Laboratory Tests Test 08/11/16 08/12/16 07:36 05:52 White Blood Count 34.1 TH/MM3 (4.0-11.0) Hemoglobin 10.8 GM/DL (11.6-15.3) Hematocrit 34.0 % (35.0-46.0) Mean Corpuscular Hemoglobin 26.4 PG (27.0-34.0) Mean Corpuscular Hemoglobin 31.8 % Concent (32.0-36.0) Estimat Glomerular Filtration 69 ML/MIN (>89) 86 ML/MIN (>89) Rate Potassium Level 3.4 MEQ/L (3.5-5.1) Random Glucose 126 MG/DL (74-106) PE at Discharge - GENERAL: This is a well-nourished, frail elderly lady well-developed patient , in no apparent distress. SKIN: No rashes, warm and dry HEAD: Atraumatic. Normocephalic. EYES: Pupils equal round and reactive. ENT: Nose without bleeding, or drainage, Airway patent. NECK: Trachea midline. Supple CARDIOVASCULAR: Regular rate and rhythm RESPIRATORY: Fair air entry bilaterally. No wheezes, rales, or rhonchi. GASTROINTESTINAL: Abdomen soft, non-tender, nondistended. Positive bowel sounds MUSCULOSKELETAL: Extremities without clubbing, cyanosis, or edema. Pedal pulses appreciated NEUROLOGICAL: Awake and alert. Flaccid upper and lower left extremity with facial asymmetry Hospital Course This is a 81yF right handed female with history of atrial fibrillation who stopped taking her Coumadin and now is found to have a right MCA CVA with proximal flow cut-off on CTA. She is actively receiving systemic TPA and is being transported now to interventional neuroradiology for potential mechanical thrombectomy-By that time thrombus was lysed and embolectomy not performed. She remains critically ill at this time. We will keep tight BP control with target sbp < 180. Strict q1h neuro checks. monitor for signs of bleeding. Dr. Dc had discussions with Dr. Stacy and Dr. Yuan and Dr. Leal and we are all in agreement with this course of action. Acute right MCA CVA, status post TPA neurology consult, PT OT, speech therapy patient showed dysphagia, GI consulted G-tube inserted Atrial Fibrillation, -Intermitted - rate controlled with Hypertensive Emergency Patient will require anticoagulation. hold off for now in the setting of immediate post TPA, to be followed by neurology as an outpatient possibly resume within 1 week 2d echo- unremarkable Patient had Aspiration Pneumonia, started on Zosyn, O2, breathing treatment, pulmonary toileting Chronic Elevated leukocytosis, consulted tester sound oncologist, mostly CLL patient will be following as an outpatient [id number] encounter performed with the patient on discharge day, as well as physical exam, summary of hospitalization course and postdischarge plan has been D/W the patient. D/W nurse D/W case preparer and liner. Discharge medications reviewed and printed and signed, post discharge follow up visit with PCP and other specialist as well as Brief hospital course and discharge summary has been placed. Pt Condition on Discharge: Fair Discharge Disposition: Discharge to SNF Discharge Time: > 30 minutes Discharge Instructions DIET: Follow Instructions for: Heart Healthy Diet Activities you can perform: See Additionl Instruction Other Activity Instructions: per PT Follow up Referrals: Neurology - 1 Week with Freddy Cortez MD New Medications: Aspirin (Aspirin) 325 Mg Tab 325 MG PO DAILY cva #30 Ref 0 TAB Metoprolol Tartrate (Metoprolol Tartrate) 25 Mg Tab 25 MG NG Q8HR htn #90 TAB Continued Medications: Amlodipine (Amlodipine) 5 Mg Tab 5 MG PO DAILY Blood Pressure Management #30 Ref 0 TAB Levothyroxine (Levothyroxine) 50 Mcg Tab 50 MCG PO DAILY Thyroid #30 Ref 0 TAB Losartan (Losartan) 100 Mg Tab 100 MG PO DAILY Blood Pressure Management #30 Ref 0 TAB Gaurang Laws MD Aug 13, 2016 09:31
[2016-08-13 12:03] VITALS: BP 156/72; PULSE 93; RESP 20; TEMP 96; O2SAT 94
[2016-08-13] MEDS: PANTOPRAZOLE SODIUM 40 MG VIAL IV PUSH SCH (13:55)
[2016-08-27] MEDS ORDERED: WHEEMIS3 (12:14)
[2016-08-27] MEDS ORDERED: LIFT HOYER (12:14)
[2016-08-27] MEDS ORDERED: [UNRECOGNIZED DRUG - SUPPLY] (12:14)
[2016-08-27] MEDS ORDERED: HOSP BED1 (12:14)
[2016-08-30] MEDS ORDERED: LOSA100T PEG (11:29)
[2016-08-30] MEDS ORDERED: ASPI325T PEG (11:29)
[2016-08-30] MEDS ORDERED: AMLO5TAB2 PEG (11:29)
[2016-08-30] MEDS ORDERED: MELA1TAB22 PEG (11:29)
[2016-08-30] MEDS ORDERED: METO25TA3 PEG (11:29)
[2016-08-30] MEDS ORDERED: METO5SOL PO (11:29)
[2016-08-30] MEDS ORDERED: FLUD.1 PEG (11:29)
[2016-08-30] MEDS ORDERED: ALPR.25 PEG (11:29)
[2016-08-30] MEDS ORDERED: LEVO50TA4 PEG (11:29)
== END 2016-08-13 16:04 | DRG 61 ==
LOC: NEPC 22:08 → NEDA 23:06 → N03B 08-05 01:06 → N05A 08-07 11:46
PROVIDERS: ADMIT Internal Medicine Critical Care Medicine; ATTEND Hospitalist
PROC: 3E03317 Introduction of Other Thrombolytic into Peripheral Vein, Percutaneous Approach (ICD-10-PCS; principal; 2016-08-04)
PROC: B31R1ZZ Fluoroscopy of Intracranial Arteries using Low Osmolar Contrast (ICD-10-PCS; 2016-08-05)
PROC: 0DB68ZX Excision of Stomach, Via Natural or Artificial Opening Endoscopic, Diagnostic (ICD-10-PCS; 2016-08-10)
PROC: 0DH63UZ Insertion of Feeding Device into Stomach, Percutaneous Approach (ICD-10-PCS; 2016-08-10 14:37)
DX: I63.411 Cerebral infarction due to embolism of right middle cerebral artery (principal); J69.0 Pneumonitis due to inhalation of food and vomit; C91.10 Chronic lymphocytic leukemia of B-cell type not having achieved remission; G81.04 Flaccid hemiplegia affecting left nondominant side; R13.12 Dysphagia, oropharyngeal phase; L97.229 Non-pressure chronic ulcer of left calf with unspecified severity; I48.2 Chronic atrial fibrillation; I16.1 Hypertensive emergency; E78.5 Hyperlipidemia, unspecified; R47.1 Dysarthria and anarthria; R73.9 Hyperglycemia, unspecified; E03.9 Hypothyroidism, unspecified; E87.6 Hypokalemia; R29.713 NIHSS score 13; I73.9 Peripheral vascular disease, unspecified; I10 Essential (primary) hypertension; F17.210 Nicotine dependence, cigarettes, uncomplicated; K29.70 Gastritis, unspecified, without bleeding; K44.9 Diaphragmatic hernia without obstruction or gangrene
CPT/HCPCS: 0042T; 36221; 36224; 36228; 70450; 70496; 70498; 70544; 70551; 71010; 74000; 74230; 76700; 76937; 80048; 80053; 80061; 80307; 81001; 82435; 82550; 82565; 82607; 82947; 82948; 83010; 83036; 83615; 83735; 84132; 84165; 84295; 84443; 84484; 84520; 85007; 85027; 85060; 85384; 85610; 85652; 85730; 86850; 86900; 86901; 87040; 87641; 88184; 88185; 88230; 88264; 88305; 88312; 93005; 93306; 93880; 93922; 94150; 94640; 94667; 94668; 99152; 99153; 99292; C1760; C1769; C1887; C1894; C9113; G0269; J0360; J1644; J2250; J2405; J2543; J3010; J3480; J7042; Q9967

== ENCOUNTER 2016-09-29 11:04 | Emergency (ER) | payer MEDICARE, OTHER ==
[~2016-09-29] VITALS: Ht 170.2 cm; Wt 64.0 kg
[~2016-09-29 11:04] MED LIST changes: +ALPR.25 PEG; +AMLO5TAB2 PEG; -AMLO5TAB96 PO; +ASPI325T PEG; -COZA100T PO; -FISH1000 PO; +FLUD.1 PEG; +HOSP BED1; -LANO0.2510 PO; +LEVO50TA4 PEG; +LIFT HOYER; +LOSA100T PEG; +MELA1TAB22 PEG; +METO25TA3 PEG; +METO5SOL PO; -SYNT25TA PO; -TOPR25TA2 PO; -WARF2.5 PO; +WHEEMIS3; +[UNRECOGNIZED DRUG - SUPPLY]
[2016-09-29 11:07] VITALS: BP 143/77; PULSE 92; RESP 16; TEMP 98.1; O2SAT 99
[2016-09-29] MEDS ORDERED: APIX5TAB PEG (11:38)
--- NOTE | 2016-09-29 11:54 | PD ---
HPI Chief Complaint: Fall Time Seen by Provider: 11:48 Travel History International Travel<30 days: No Contact w/Intl Traveler<30days: No Traveled to known affect area: No History of Present Illness HPI 81-year-old female with history of previous stroke, left-sided weakness, A. fib currently on Xarelto, left leg DVT, recently released out of rehabilitation to home, presents to the ER today because she was getting out of bed when she lost balance and fell, denies loss of consciousness, but had a injury with laceration to her left scalp, and was evaluated by DIGITAL LEARNING PLATFORMS MANAGER at home. DIGITAL LEARNING PLATFORMS MANAGER noted that they were worried that she may have an intracranial injury, wanted her to get a CAT scan of the brain when she came in, and also noted that her lung sounds were decreased and will like her to get a chest x-ray while she is here. Patient reports no chest pains or new shortness of breath. Patient's son states that she has had problems with nausea, vomiting, and diarrhea that has been going on since last week and they had seen their primary care physician for it. He was told that they needed an x-ray of the abdomen pelvis. She denies any coughing fevers or any other symptoms. Modifying Factors: None Associated Signs & Symptoms: Fall at home, left scalp laceration Risk Factors: Elderly, recent stroke, on blood thinners PFSH Past Medical History Hx Anticoagulant Therapy: Yes (ELIQUIS) Arthritis: No Asthma: No Autoimmune Disease: No Blood Disorders: No Anxiety: No Depression: No Heart Rhythm Problems: No Cancer: Yes (Skin CA) Cardiovascular Problems: Yes (HTN) High Cholesterol: No Chemotherapy: No Chest Pain: No Congestive Heart Failure: No COPD: No Cerebrovascular Accident: Yes (CVA) Diabetes: No Diminished Hearing: No Endocrine: No Gastrointestinal Disorders: No GERD: No Glaucoma: No Genitourinary: No Headaches: No Hepatitis: No Hiatal Hernia: No Heparin Induced Thrombocytopen: No Hypertension: Yes Immune Disorder: No Implanted Vascular Access Dvce: No Kidney Stones: No Medical other: Yes (ARTHRITIS) Musculoskeletal: No Neurologic: No Psychiatric: No Reproductive: No Respiratory: No Migraines: No Myocardial Infarction: No Radiation Therapy: No Renal Failure: No Seizures: No Sickle Cell Disease: No Sleep Apnea: No Thyroid Disease: No Ulcer: No ?: Not Past Surgical History Abdominal Surgery: No AICD: No Appendectomy: No Arteriovenous Shunt: No Cardiac Surgery: No Cholecystectomy: No Ear Surgery: No Endocrine Surgery: No Eye Surgery: Yes (CATARACT SX RIGHT EYE) Genitourinary Surgery: No Gynecologic Surgery: No Insulin Pump: No Joint Replacement: No Neurologic Surgery: No Oral Surgery: No Pacemaker: No Thoracic Surgery: No Other Surgery: Yes Social History Alcohol Use: Yes (states 2 teaspoons of thickened wine occasionally) Tobacco Use: No (states she quit after stroke) Substance Use: No Allergies-Medications (Allergen,Severity, Reaction): Coded Allergies: Bee Sting (Verified Allergy, Severe, swells, 09/29/16) Reported Meds & Prescriptions Reported Meds & Active Scripts Active Melatonin 5 Mg Tab 5 Mg PEG HS PRN Fludrocortisone (Fludrocortisone Acetate) 0.1 Mg Tab 0.1 Mg PEG DAILY Metoprolol Tartrate 25 Mg Tab 25 Mg PEG Q8HR Losartan (Losartan Potassium) 100 Mg Tab 100 Mg PEG DAILY Levothyroxine (Levothyroxine Sodium) 50 Mcg Tab 50 Mcg PEG DAILY Hospital Bed - Electric 1 Ea Ea 1 Ea .ROUTE DIRECTED Lift - Abdelrahman Device 1 Ea .ROUTE DIRECTED Wheelchair (Device) 1 Mis Mis 1 Ea .ROUTE DIRECTED [drop arm commode] Ea Reported Eliquis (Apixaban) 5 Mg Tab 5 Mg PEG BID Review of Systems Except as stated in HPI: all other systems reviewed are Neg Physical Exam Narrative GENERAL: Pleasant elderly white female patient currently in mild distress at awake and oriented 3. SKIN: Focused skin assessment warm/dry. HEAD: There is a 5 cm shallow left scalp laceration that is not bleeding. Normocephalic. EYES: Right pupil is status post cataract surgery and is 4 mm, not reactive to light, left pupil is small and round, reactive to light. No scleral icterus. No injection or drainage. ENT: No nasal bleeding or discharge. Mucous membranes pink and moist. There is a notable small laceration to the left of the nasal bridge. NECK: Trachea midline. No JVD. CARDIOVASCULAR: Regular rate and rhythm. No murmur appreciated. CHEST: Nontender throughout without deformity or crepitance. No retractions or use of accessory muscles. RESPIRATORY: No accessory muscle use. Clear to auscultation. No decreased on the right versus left. GASTROINTESTINAL: Abdomen soft, non-tender, nondistended. Hepatic and splenic margins not palpable. Pelvis: Stable and nontender to palpation. MUSCULOSKELETAL: No obvious deformities. No clubbing. No cyanosis. No edema. NEUROLOGICAL: Awake and alert. No obvious cranial nerve deficits. Motor grossly within normal limits. Normal speech. PSYCHIATRIC: Appropriate mood and affect; insight and judgment normal. Data Data Last Documented VS Vital Signs Date Time Temp Pulse Resp B/P Pulse Ox O2 Delivery O2 Flow Rate FiO2 09/29/16 13:07 98 Room Air 09/29/16 11:07 98.1 92 16 143/77 Orders Electrocardiogram (09/29/16 11:48) Complete Blood Count With Diff (09/29/16 11:48) Comprehensive Metabolic Panel (09/29/16 11:48) Chest, Single Ap (09/29/16 11:48) Ct Brain W/O Iv Contrast(Rout) (09/29/16 11:48) Ct Cerv Spine W/O Contrast (09/29/16 11:48) Ecg Monitoring (09/29/16 11:48) Iv Access Insert/Monitor (09/29/16 11:48) Oximetry (09/29/16 11:48) Sodium Chloride 0.9% Flush (Ns Flush) (09/29/16 12:00) Ct Facial Bones W/O Iv Cont (09/29/16 11:48) Abdomen, Flat & Upright (09/29/16 12:14) Potassium Chloride (Kcl) (09/29/16 13:15) Potassium Chloride Eff (K-Lyte Cl Eff) (09/29/16 13:15) Labs Laboratory Tests Test 09/29/16 12:01 White Blood Count 36.1 TH/MM3 Red Blood Count 4.41 MIL/MM3 Hemoglobin 11.9 GM/DL Hematocrit 36.0 % Mean Corpuscular Volume 81.6 FL Mean Corpuscular Hemoglobin 27.1 PG Mean Corpuscular Hemoglobin 33.3 % Concent Red Cell Distribution Width 14.5 % Platelet Count 292 TH/MM3 Mean Platelet Volume 8.9 FL Neutrophils (%) (Auto) % Lymphocytes (%) (Auto) % Monocytes (%) (Auto) % Eosinophils (%) (Auto) % Basophils (%) (Auto) % Neutrophils # (Auto) TH/MM3 Lymphocytes # (Auto) TH/MM3 Monocytes # (Auto) TH/MM3 Eosinophils # (Auto) TH/MM3 Basophils # (Auto) TH/MM3 CBC Comment AUTO DIFF Differential Total Cells 100 Counted Neutrophils % (Manual) 16 % Band Neutrophils % 2 % Lymphocytes % 74 % Monocytes % 6 % Eosinophils % 2 % Neutrophils # (Manual) 6.5 TH/MM3 Differential Comment FINAL DIFF MANUAL Smudge Cells PRESENT Platelet Estimate NORMAL Platelet Morphology Comment NORMAL Ovalocytes 1+ Rouleau PRESENT Sodium Level 140 MEQ/L Potassium Level 3.1 MEQ/L Chloride Level 104 MEQ/L Carbon Dioxide Level 28.5 MEQ/L Anion Gap 8 MEQ/L Blood Urea Nitrogen 6 MG/DL Creatinine 0.68 MG/DL Estimat Glomerular Filtration 83 ML/MIN Rate Random Glucose 106 MG/DL Calcium Level 8.5 MG/DL Total Bilirubin 0.9 MG/DL Aspartate Amino Transf 17 U/L (AST/SGOT) Alanine Aminotransferase 25 U/L (ALT/SGPT) Alkaline Phosphatase 117 U/L Total Protein 6.5 GM/DL Albumin 3.1 GM/DL MDM Medical Decision Making Medical Screen Exam Complete: Yes Emergency Medical Condition: Yes Medical Record Reviewed: Yes Interpretation(s) EKG shows atrial flutter with a PVC, rate at 89 bpm. There are lateral ST changes and LVH signs which do not appear changed from previous EKG on record. Laboratory Tests Test 09/29/16 12:01 White Blood Count 36.1 TH/MM3 (4.0-11.0) Lymphocytes % 74 % (9-44) Ovalocytes 1+ (NORMAL) Rouleau PRESENT (NORMAL) Potassium Level 3.1 MEQ/L (3.5-5.1) Blood Urea Nitrogen 6 MG/DL (7-18) Estimat Glomerular Filtration 83 ML/MIN (>89) Rate Albumin 3.1 GM/DL (3.4-5.0) Last 24 hours Impressions Abdomen X-Ray 09/29/16 1214 Signed Impressions: Service Date/Time: Thursday, September 29, 2016 12:35 - CONCLUSION: Benign-appearing abdomen. Andrew Pickard MD Maxillofacial CT 09/29/16 1148 Signed Impressions: Service Date/Time: Thursday, September 29, 2016 12:13 - CONCLUSION: Negative for an acute fracture. Elfego Flowers MD FACR Chest X-Ray 09/29/16 1148 Signed Impressions: Service Date/Time: Thursday, September 29, 2016 12:15 - CONCLUSION: 1. Mild bibasilar atelectasis and mild to moderate cardiomegaly. Please see above. 2. Apparent focal pleural thickening posterolaterally of the left lung base. I don't clearly see a rib fracture. Noncontrast chest CT suggested. Andrew Pickard MD Differential Diagnosis Loss of balance, fall, head injuryrule out intracranial injuries versus fractures versus contusions Narrative Course Vital signs are stable in the ER. Patient is completely awake and oriented 3, is conversant. CT shows an evolving stroke on the right side not previously seen on a previous EKG. Dr. Flowers noted that the changes likely represents a 3- 5 days old stroke. At this point, patient has not noticed any new neurological deficits or weakness. Lab work shows leukocytosis which appeared to be baseline for this patient who has CLL. Her metabolic panel shows hypokalemia and potassium was given to the patient in the ER. At this point, I have discussed the findings with the patient and her family and they state that they did not want aggressive care and did not want to be hospitalized. Patient states that she was recently released from retirement and Hospital and states that she does not want to go back in. At this point, she is on Eliquis, and she states that she is not sure that there would be further therapy needed in the hospital versus what can be done as an outpatient. She states that she had thought he threw and balancing the risk of worsening in condition, states that she is a DNR, does not want further aggressive therapy. Case was discussed with patient's primary care physician, Dr. Almazan, who had gone through the case with me and states that the only thing she may add in addition would be an aspirin back to her regimen. At this point, she agrees with patient and family and will see them as an outpatient. Return for any worsening in disorientation , new numbness or weakness, neurological issues, or new symptoms as needed. The plan has been discussed with patient and family and they state that they would prefer us aggressive therapy and to be released to follow-up with primary care physician. Diagnosis Primary Impression: CVA (cerebral vascular accident) Additional Impressions: Scalp laceration Minor head injury without loss of consciousness Disposition: 01 DISCHARGE HOME Condition: Stable Makayla Rivera MD Sep 29, 2016 11:54
[2016-09-29] MEDS ORDERED: SODIUM CHLORIDE 0.9% FLUSH 10 ML FLUSH IVF PRN (12:00)
[2016-09-29 12:11] LABS: MEAN CELL VOLUME 81.6 FL (80.0-100.0); MEAN CORPUSCULAR HEMOGLOBIN 27.1 PG (27.0-34.0); MEAN CORPUSCULAR HGB CONC 33.3 % (32.0-36.0); PLATELET COUNT 292 TH/MM3 (150-450); RED BLOOD COUNT 4.41 MIL/MM3 (4.00-5.30); RED CELL DISTRIBUTION WIDTH 14.5 % (11.6-17.2); WHITE BLOOD COUNT 36.1 TH/MM3 (4.0-11.0)
[2016-09-29 12:14] LABS: CHLORIDE 104 MEQ/L (98-107); POTASSIUM 3.1 MEQ/L (3.5-5.1); SODIUM (NA) 140 MEQ/L (136-145)
[2016-09-29 12:17] LABS: HEMO FLAGS AUTO DIFF
[2016-09-29 12:18] LABS: ANION GAP 8 MEQ/L (5-15); BICARBONATE 28.5 MEQ/L (21.0-32.0); BLOOD UREA NITROGEN 6 MG/DL (7-18)
[2016-09-29 12:21] LABS: ALT (GPT) 25 U/L (10-53); AST (GOT) 17 U/L (15-37); GLOMERULAR FILTRATION RATE 83 ML/MIN (>89)
[2016-09-29 12:22] LABS: TOTAL BILIRUBIN ADULT 0.9 MG/DL (0.2-1.0)
[2016-09-29 12:24] LABS: ALKALINE PHOSPHATASE 117 U/L (45-117)
--- NOTE | 2016-09-29 12:30 | RADHPO ---
EXAM DATE/TIME: 09/29/2016 12:15 [facility] COMPARISON: CHEST SINGLE AP, August 22, 2016, 15:09. INDICATIONS : Palpitations, fall MEDICAL HISTORY : a fib SURGICAL HISTORY : None. ENCOUNTER: Initial ACUITY: 1 day PAIN SCORE: 0/10 LOCATION: Bilateral chest FINDINGS: Mild to moderate cardiomegaly again noted. The cardiac silhouette is somewhat globular in configurati on and the differential would include pericardial effusion. There is improved aeration of the left lung base. An area of posterior lateral pleural thickening is now visible, measuring approximately 2 x 8 cm in size. No large effusion. No pneumothorax. Tortuous thoracic aorta again noted. CONCLUSION: 1. Mild bibasilar atelectasis and mild to moderate cardiomegaly. Please see above. 2. Apparent focal pleural thickening posterolaterally of the left lung base. I don't clearly see a ri b fracture. Noncontrast chest CT suggested. Andrew Pickard MD on September 29, 2016 at 12:25 Board Certified Radiologist. This report was verified electronically.
[2016-09-29 12:33] LABS: BANDS 2 % (0-6); EOSINOPHILS 2 % (0-4); NEUTROPHIL # MANUAL DIFF 6.5 TH/MM3 (1.8-7.7); POLYS (SEG NEUTROPHILS) 16 % (16-70); WBC DIFF SAMPLE 100
[2016-09-29 12:35] LABS: OVALOCYTES 1+ (NORMAL); PLATELET ESTIMATE SMEAR NORMAL (NORMAL); PLATELET MORPHOLOGY NORMAL (NORMAL); ROULEAUX PRESENT (NORMAL); SCAN/DIFF FINAL DIFF MANUAL; SMUDGE CELLS PRESENT PRESENT
--- NOTE | 2016-09-29 12:46 | RADHPO ---
EXAM DATE/TIME: 09/29/2016 12:13 [facility] COMPARISON: CT BRAIN W/O CONTRAST, August 24, 2016, 16:15. INDICATIONS : Fell last night, nose and facial injuries. RADIATION DOSE: 8.26 CTDIvol (mGy) MEDICAL HISTORY : Cerebrovascular disease. Hypertension. Arthritis SURGICAL HISTORY : unknown ENCOUNTER: Initial ACUITY: 2 days PAIN SCALE: 6/10 LOCATION: Cranial TECHNIQUE: Multiple contiguous axial images were obtained of the head. Using automated exposure control and adj ustment of the mA and/or kV according to patient size, radiation dose was kept as low as reasonably a chievable to obtain optimal diagnostic quality images. FINDINGS: There is an evolving infarct in the right sylvian region probably 3 - 5 days old. The left hemispher e is unremarkable. There is no parenchymal hemorrhage. No extra-axial fluid collections appreciated . There is no skull fracture. Posterior fossa appears normal. CONCLUSION: Evolving infarct in the right sylvian region without hemorrhage. Elfego Flowers MD FACR on September 29, 2016 at 12:39 Board Certified Radiologist. This report was verified electronically.
--- NOTE | 2016-09-29 12:50 | RADHPO ---
EXAM DATE/TIME: 09/29/2016 12:13 [facility] COMPARISON: No previous studies available for comparison. INDICATIONS : Fell last night with nose and facial injuries. RADIATION DOSE: 24.67 CTDIvol (mGy) MEDICAL HISTORY : Cerebrovascular disease. Hypertension. Arthritis SURGICAL HISTORY : unknown ENCOUNTER: Initial ACUITY: 2 days PAIN SCALE: 7/10 LOCATION: Left neck TECHNIQUE: Volumetric scanning of the cervical spine was performed. Multiplanar reconstructions in the sagittal, coronal and oblique axial planes were performed. Using automated exposure control and adjustment o f the mA and/or kV according to patient size, radiation dose was kept as low as reasonably achievable to obtain optimal diagnostic quality images. FINDINGS: Alignment is anatomic in the sagittal and coronal projections. Degenerative changes are seen at C1 and C2. C2-C3: The bony spinal canal is normal in size. No evidence of disc bulge or herniation. The neural forami na are bilaterally patent. C3-C4: There is mild uncinate ridging present with minimal right-sided neural foraminal encroachment. C4-C5: Moderate uncinate ridging is present with minimal right-sided neural foraminal encroachment. C5-C6: Significant spinal stenosis is present with uncinate ridging and bilateral neural foraminal encroachm ent. C6-C7: Moderate uncinate ridging is present with minimal bilateral neural foraminal encroachment. C7-T1: The bony spinal canal is normal in size. No evidence of disc bulge or herniation. The neural forami na are bilaterally patent. CONCLUSION: Degenerative changes as described above. Spinal stenosis is significant at C5-C6 and C6-C7. Elfego Flowers MD FACR on September 29, 2016 at 12:44 Board Certified Radiologist. This report was verified electronically.
--- NOTE | 2016-09-29 12:51 | RADHPO ---
EXAM DATE/TIME: 09/29/2016 12:13 [facility] COMPARISON: No previous studies available for comparison. INDICATIONS : Fell last night with nose and facial injuries. RADIATION DOSE: 25.79 CTDIvol (mGy) MEDICAL HISTORY : Cerebrovascular disease. Hypertension. Arthritis SURGICAL HISTORY : unknown ENCOUNTER: Initial ACUITY: 2 days PAIN SCORE: 7/10 LOCATION: Bilateral facial TECHNIQUE: Volumetric scanning of the facial bones was performed. Using automated exposure control and adjustme nt of the mA and/or kV according to patient size, radiation dose was kept as low as reasonably achiev able to obtain optimal diagnostic quality images. FINDINGS: ORBITS: The orbital and infraorbital osseous structures are intact. The retroconal structures have a normal configuration. No radiopaque foreign bodies are seen. NASAL BONE: The nasal bone and maxillary spine are intact ZYGOMATIC ARCHES: Symmetric without evidence of fracture. SINUSES: The maxillary, ethmoid and frontal sinuses are intact. No air-fluid levels seen. NASAL CAVITY: The nasal septum is intact and midline. The lacrimal ducts are intact. SOFT TISSUES: No radiopaque foreign bodies seen. No soft-tissue swelling is seen. INTRACRANIAL: No intracranial air seen. CRIBIFORM PLATE: Grossly intact. CONCLUSION: Negative for an acute fracture. Elfego Flowers MD FACR on September 29, 2016 at 12:48 Board Certified Radiologist. This report was verified electronically.
--- NOTE | 2016-09-29 12:53 | RADHPO ---
EXAM DATE/TIME: 09/29/2016 12:35 [facility] COMPARISON: No previous studies available for comparison. INDICATIONS : Nausea,diarrhea, vomiting MEDICAL HISTORY : Stroke. SURGICAL HISTORY : feeding tube ENCOUNTER: Initial ACUITY: 2 weeks PAIN SCORE: 0/10 LOCATION: Bilateral abdomen FINDINGS: Supine and upright views of the abdomen were performed. The abdominal bowel gas pattern is normal. No air fluid levels are seen. No abnormal masses, calcifications, or organomegaly is seen. The visu alized lower lungs are clear. No evidence of free intraperitoneal gas. The osseous structures are u nremarkable. CONCLUSION: Benign-appearing abdomen. Andrew Pickard MD on September 29, 2016 at 12:51 Board Certified Radiologist. This report was verified electronically.
[2016-09-29 13:07] VITALS: O2SAT 98
[2016-09-29] MEDS ORDERED: POTASSIUM CHLORIDE 10 MEQ CONTROLLED RELEASE TAB PO ONE (13:15)
[2016-09-29] MEDS ORDERED: POTASSIUM CHLORIDE 25 MEQ EFFERVESCENT TAB G-TUBE ONE (13:15)
--- NOTE | 2016-09-30 09:46 | EKG ---
Date Performed: 09/29/2016 Time Performed: 11:51:56 PTAGE: 81 years EKG: probable sinus tachycardia changes V3/V4 may be due to LVH but cannot rule out anterior inf arct LVH with secondary repolarization abnormality Inferior/lateral ST-T changes may be due to hypert rophy and/or ischemia Abnormal ECG PREVIOUS TRACING : 08/04/2016 23.07 DOCTOR: Dusty Chou Interpretating Date/Time 09/30/2016 09:37:53
== END 2016-09-29 14:06 | disposition home or self-care (01) ==
LOC: PHED 11:04
DX: I63.9 Cerebral infarction, unspecified (principal); S01.01XA Laceration without foreign body of scalp, initial encounter; S09.8XXA Other specified injuries of head, initial encounter; R19.7 Diarrhea, unspecified; E87.6 Hypokalemia; R94.31 Abnormal electrocardiogram [ECG] [EKG]; C91.10 Chronic lymphocytic leukemia of B-cell type not having achieved remission; I10 Essential (primary) hypertension; W18.39XA Other fall on same level, initial encounter; Z79.01 Long term (current) use of anticoagulants; Z86.79 Personal history of other diseases of the circulatory system; Z86.718 Personal history of other venous thrombosis and embolism; Z87.39 Personal history of other diseases of the musculoskeletal system and connective tissue; Z87.891 Personal history of nicotine dependence
CPT/HCPCS: 70450; 70486; 71010; 72125; 74020; 80053; 85007; 85027; 93005; 99285

== ENCOUNTER 2016-10-03 15:29 | Emergency (ER) | payer MEDICARE, OTHER ==
[~2016-10-03 15:29] MED LIST changes: -ALPR.25 PEG; -AMLO5TAB2 PEG; +APIX5TAB PEG; -ASPI325T PEG; -METO5SOL PO
[2016-10-03 15:34] VITALS: BP 133/77; PULSE 75; RESP 16; TEMP 97.7; O2SAT 97
[2016-10-03] MEDS ORDERED: ASPI325T PO (16:14)
[2016-10-03] MEDS ORDERED: SODIUM CHLORIDE 0.9% FLUSH 5 ML FLUSH IV FLUSH PRN (16:15)
--- NOTE | 2016-10-03 16:18 | PD ---
HPI Chief Complaint: Abnormal Results Time Seen by Provider: 16:11 Travel History International Travel<30 days: No Contact w/Intl Traveler<30days: No Traveled to known affect area: No History of Present Illness HPI 81-year-old female with history of atrial fibrillation, stroke, on Eliquis, seen a few days ago for a fall, presents back to the ER today because her family states that she has been looking more disoriented her last few days and complaining of feeling weak. She apparently had unequal blood pressures in her arms today and the family thought that they saw that her fingertips were looking purple for about half an hour before it went away. Patient denies any chest pains, shortness of breath, vomiting, or any other symptoms. She has a few episodes of diarrhea but no black stools. Modifying Factors: None Associated Signs & Symptoms: General weakness Risk Factors: Elderly, recent fall PFSH Past Medical History Hx Anticoagulant Therapy: Yes (ELIQUIS) Arthritis: No Asthma: No Atrial Fibrillation: Yes Autoimmune Disease: No Blood Disorders: No Anxiety: No Depression: No Heart Rhythm Problems: No Cancer: Yes (Skin CA) Cardiovascular Problems: Yes (HTN) High Cholesterol: No Chemotherapy: No Chest Pain: No Congestive Heart Failure: No COPD: No Cerebrovascular Accident: Yes (CVALEFT SIDED INVOLVEMENT) Diabetes: No Diminished Hearing: No Endocrine: No Gastrointestinal Disorders: No GERD: No Glaucoma: No Genitourinary: No Headaches: No Hepatitis: No Hiatal Hernia: No Heparin Induced Thrombocytopen: No Hypertension: Yes Immune Disorder: No Implanted Vascular Access Dvce: No Kidney Stones: No Medical other: Yes (ARTHRITIS) Musculoskeletal: No Neurologic: No Psychiatric: No Reproductive: No Respiratory: No Migraines: No Myocardial Infarction: No Radiation Therapy: No Renal Failure: No Seizures: No Sickle Cell Disease: No Sleep Apnea: No Thyroid Disease: Yes (HYPO) Ulcer: No Tetanus Vaccination: > 5 Years Influenza Vaccination: Yes Past Surgical History Abdominal Surgery: No AICD: No Appendectomy: No Arteriovenous Shunt: No Cardiac Surgery: No Cholecystectomy: No Ear Surgery: No Endocrine Surgery: No Eye Surgery: Yes (CATARACT SX RIGHT EYE) Genitourinary Surgery: No Gynecologic Surgery: No Insulin Pump: No Joint Replacement: No Neurologic Surgery: No Oral Surgery: No Pacemaker: No Thoracic Surgery: No Other Surgery: Yes Social History Alcohol Use: Yes (states 2 teaspoons of thickened wine occasionally) Tobacco Use: No (states she quit after stroke) Substance Use: No Allergies-Medications (Allergen,Severity, Reaction): Coded Allergies: Bee Sting (Verified Allergy, Severe, swells, 10/03/16) Reported Meds & Prescriptions Reported Meds & Active Scripts Active Melatonin 5 Mg Tab 5 Mg PEG HS PRN Fludrocortisone (Fludrocortisone Acetate) 0.1 Mg Tab 0.1 Mg PEG DAILY Metoprolol Tartrate 25 Mg Tab 25 Mg PEG Q8HR Losartan (Losartan Potassium) 100 Mg Tab 100 Mg PEG DAILY Levothyroxine (Levothyroxine Sodium) 50 Mcg Tab 50 Mcg PEG DAILY Hospital Bed - Electric 1 Ea Ea 1 Ea .ROUTE DIRECTED Lift - Abdelrahman Device 1 Ea .ROUTE DIRECTED Wheelchair (Device) 1 Mis Mis 1 Ea .ROUTE DIRECTED [drop arm commode] Ea Reported Aspirin 325 Mg Tab 325 Mg PO DAILY Eliquis (Apixaban) 5 Mg Tab 5 Mg PEG BID Review of Systems Except as stated in HPI: all other systems reviewed are Neg (her family and patient) Physical Exam Narrative GENERAL: Well-developed pleasant elderly white female patient currently in mild distress at awake, or into 3. SKIN: Focused skin assessment warm/dry. HEAD: Atraumatic. Normocephalic. EYES: Pupils equal and round. No scleral icterus. No injection or drainage. ENT: No nasal bleeding or discharge. Mucous membranes pink and moist. NECK: Trachea midline. No JVD. CARDIOVASCULAR: Regular rate and rhythm. No murmur appreciated. Pulses are present and equal bilaterally. RESPIRATORY: No accessory muscle use. Clear to auscultation. Breath sounds equal bilaterally. GASTROINTESTINAL: Abdomen soft, non-tender, nondistended. Hepatic and splenic margins not palpable. G-tube in place. MUSCULOSKELETAL: No obvious deformities. No clubbing. No cyanosis. No edema. NEUROLOGICAL: Awake and alert. No obvious cranial nerve deficits. Left-sided weakness. Normal speech. PSYCHIATRIC: Appropriate mood and affect; insight and judgment normal. Data Data Last Documented VS Vital Signs Date Time Temp Pulse Resp B/P Pulse Ox O2 Delivery O2 Flow Rate FiO2 10/03/16 17:08 134/80 146/79 10/03/16 16:25 98 Room Air 10/03/16 15:34 97.7 75 16 Orders Electrocardiogram (10/03/16 16:12) Complete Blood Count With Diff (10/03/16 16:12) Comprehensive Metabolic Panel (10/03/16 16:12) Creatine Kinase (Cpk) (10/03/16 16:12) Troponin I (10/03/16 16:12) Thyroid Stimulating Hormone (10/03/16 16:12) Urinalysis - C+S If Indicated (10/03/16 16:12) Lactic Acid Sepsis Protocol (10/03/16 16:12) Blood Culture (10/03/16 16:12) Chest, Single Ap (10/03/16 16:12) Ct Brain W/O Iv Contrast(Rout) (10/03/16 16:12) Blood Glucose (10/03/16 16:12) Ecg Monitoring (10/03/16 16:12) Iv Access Insert/Monitor (10/03/16 16:12) Cath For Specimen (10/03/16 16:12) Oximetry (10/03/16 16:12) Sodium Chloride 0.9% Flush (Ns Flush) (10/03/16 16:15) Blood Pressure (10/03/16 16:13) Potassium Chloride Eff (K-Lyte Cl Eff) (10/03/16 17:30) Labs Laboratory Tests Test 10/03/16 10/03/16 16:40 17:30 White Blood Count 41.5 TH/MM3 Red Blood Count 4.33 MIL/MM3 Hemoglobin 11.6 GM/DL Hematocrit 35.4 % Mean Corpuscular Volume 81.8 FL Mean Corpuscular Hemoglobin 26.8 PG Mean Corpuscular Hemoglobin 32.7 % Concent Red Cell Distribution Width 15.3 % Platelet Count 298 TH/MM3 Mean Platelet Volume 9.5 FL Neutrophils (%) (Auto) 23.5 % Lymphocytes (%) (Auto) 68.7 % Monocytes (%) (Auto) 3.2 % Eosinophils (%) (Auto) 4.5 % Basophils (%) (Auto) 0.1 % Neutrophils # (Auto) 9.8 TH/MM3 Lymphocytes # (Auto) 28.5 TH/MM3 Monocytes # (Auto) 1.3 TH/MM3 Eosinophils # (Auto) 1.9 TH/MM3 Basophils # (Auto) 0.0 TH/MM3 CBC Comment AUTO DIFF Differential Total Cells 100 Counted Neutrophils % (Manual) 7 % Lymphocytes % 89 % Monocytes % 2 % Eosinophils % 2 % Neutrophils # (Manual) 2.9 TH/MM3 Differential Comment FINAL DIFF MANUAL Platelet Estimate NORMAL Platelet Morphology Comment NORMAL Ovalocytes 1+ Crenated Cell 1+ Acanthocytes 1+ Keratocytes 1+ Sodium Level 140 MEQ/L Potassium Level 3.1 MEQ/L Chloride Level 104 MEQ/L Carbon Dioxide Level 27.8 MEQ/L Anion Gap 8 MEQ/L Blood Urea Nitrogen 9 MG/DL Creatinine 0.82 MG/DL Estimat Glomerular Filtration 67 ML/MIN Rate Random Glucose 110 MG/DL Lactic Acid Level 1.1 mmol/L Calcium Level 8.9 MG/DL Total Bilirubin 0.7 MG/DL Aspartate Amino Transf 13 U/L (AST/SGOT) Alanine Aminotransferase 19 U/L (ALT/SGPT) Alkaline Phosphatase 100 U/L Total Creatine Kinase 22 U/L Troponin I 0.02 NG/ML Total Protein 6.4 GM/DL Albumin 3.2 GM/DL Thyroid Stimulating Hormone 1.720 uIU/ML 3rd Gen Urine Color YELLOW Urine Turbidity CLEAR Urine pH 6.0 Urine Specific [place] 1.007 Urine Protein TRACE mg/dL Urine Glucose (UA) NEG mg/dL Urine Ketones NEG mg/dL Urine Occult Blood TRACE Urine Nitrite NEG Urine Bilirubin NEG Urine Leukocyte Esterase NEG Urine WBC 3-5 /hpf Urine Squamous Epithelial 0-5 /hpf Cells Urine Amorphous Sediment MOD Urine White Blood Cell Casts 0-2 /lpf Microscopic Urinalysis Comment CULT NOT INDICATED MDM Medical Decision Making Medical Screen Exam Complete: Yes Emergency Medical Condition: Yes Medical Record Reviewed: Yes Interpretation(s) EKG shows A. fib with slow ventricular response at a rate of 54 bpm. No signs of new ST changes. Laboratory Tests Test 10/03/16 10/03/16 16:40 17:30 White Blood Count 41.5 TH/MM3 (4.0-11.0) Mean Corpuscular Hemoglobin 26.8 PG (27.0-34.0) Lymphocytes (%) (Auto) 68.7 % (9.0-44.0) Eosinophils (%) (Auto) 4.5 % (0.0-4.0) Neutrophils # (Auto) 9.8 TH/MM3 (1.8-7.7) Lymphocytes # (Auto) 28.5 TH/MM3 (1.0-4.8) Monocytes # (Auto) 1.3 TH/MM3 (0-0.9) Eosinophils # (Auto) 1.9 TH/MM3 (0-0.4) Neutrophils % (Manual) 7 % (16-70) Lymphocytes % 89 % (9-44) Ovalocytes 1+ (NORMAL) Crenated Cell 1+ (NORMAL) Acanthocytes 1+ (NORMAL) Keratocytes 1+ (NORMAL) Potassium Level 3.1 MEQ/L (3.5-5.1) Estimat Glomerular Filtration 67 ML/MIN (>89) Rate Random Glucose 110 MG/DL (74-106) Aspartate Amino Transf 13 U/L (15-37) (AST/SGOT) Total Creatine Kinase 22 U/L (26-192) Albumin 3.2 GM/DL (3.4-5.0) Urine Occult Blood TRACE (NEG) Last [address] 10/03/161611 Signed Impressions: Service Date/Time: Saturday, October 03, 2016 17:31 - CONCLUSION: 1. Evolving right middle cerebral artery infarct without acute hemorrhage noted. 2. Moderate to severe periventricular and subcortical white matter small vessel ischemic changes bilaterally. 3. Old lacunar infarct within the right basal ganglia. 4. No midline shift or extra-axial fluid collection. Philip Stephens MD Chest X-Ray 10/03/161611 Signed Impressions: Service Date/Time: Monday, October 03, 2016 16:18 - CONCLUSION: 1. Cardiomegaly without failure. 2. Recently described focal pleural opacity in the posterior-lateral left hemithorax is not demonstrated on today's exam. Bryon Chow MD Differential Diagnosis General weakness, fingertips cyanosis episodesepsis versus dehydration versus metabolic issues versus intracranial bleed versus CVA Narrative Course Patient has ongoing left-sided weakness, seen 4 days ago for CVA which was involving at the time. Lab work today did not show any signs of new processes but does again show potassium which is low. She was given potassium by tube. Her EKG shows A. fib with slow ventricular response initially but her heart rate went up while she was being evaluated in the ER. CAT scan once again shows the evolving right sided CVA. Patient has been on aspirin. At this point , I had talked to the patient and daughter regarding findings and have offered to admit her for further treatment. Patient is declining again this time, states that she is a DNR, does not want aggressive treatment. She states that she does understand that without treatment, she had risk for worsening in condition. Patient states understanding. She is once again declining. She states she will see Dr. Almazan on appointment tomorrow. At this point, patient states understanding of risk of worsening in condition, understands that she has an evolving stroke, and would prefer to be released with outpatient follow-up. Diagnosis Primary Impression: acute right MCA stroke Additional Impression: Hypokalemia Disposition: 01 DISCHARGE HOME Condition: Stable Makayla Rivera MD Oct 03, 2016 16:18
[2016-10-03 16:25] VITALS: O2SAT 98
--- NOTE | 2016-10-03 17:01 | RADHPO ---
EXAM DATE/TIME: 10/03/2016 16:18 [facility] COMPARISON: CHEST SINGLE AP, September 29, 2016, 12:15. INDICATIONS : Chest pain. MEDICAL HISTORY : A-fib. SURGICAL HISTORY : None. ENCOUNTER: Initial ACUITY: 1 day PAIN SCORE: 4/10 LOCATION: Bilateral chest FINDINGS: Elevation of the left hemidiaphragm similar to previous exam. Focal pleural opacity seen in the poste rior lateral left hemithorax is not as well-demonstrated on the current exam. Cardiac silhouette is e nlarged. Pulmonary vascularity is within normal limits. Remainder of the exam is unchanged. CONCLUSION: 1. Cardiomegaly without failure. 2. Recently described focal pleural opacity in the posterior-lateral left hemithorax is not demonstra leatha on today's exam. Bryon Chow MD on October 03, 2016 at 16:57 Board Certified Radiologist. This report was verified electronically.
[2016-10-03 17:02] LABS: CHLORIDE 104 MEQ/L (98-107); POTASSIUM 3.1 MEQ/L (3.5-5.1); SODIUM (NA) 140 MEQ/L (136-145)
[2016-10-03 17:06] LABS: ANION GAP 8 MEQ/L (5-15); BICARBONATE 27.8 MEQ/L (21.0-32.0); BLOOD UREA NITROGEN 9 MG/DL (7-18)
[2016-10-03 17:08] VITALS: BP_SYST 134; BP_SYST 146; BP_DIAS 79; BP_DIAS 80
[2016-10-03 17:09] LABS: ALT (GPT) 19 U/L (10-53); AST (GOT) 13 U/L (15-37)
[2016-10-03 17:10] LABS: GLOMERULAR FILTRATION RATE 67 ML/MIN (>89)
[2016-10-03 17:11] LABS: TOTAL BILIRUBIN ADULT 0.7 MG/DL (0.2-1.0)
[2016-10-03 17:12] LABS: ALKALINE PHOSPHATASE 100 U/L (45-117)
[2016-10-03 17:14] LABS: AUTOMATED NEUTROPHIL # 9.8 TH/MM3 (1.8-7.7); BASOPHIL % 0.1 % (0.0-2.0); EOSINOPHIL # 1.9 TH/MM3 (0-0.4); EOSINOPHIL % 4.5 % (0.0-4.0); HEMATOCRIT 35.4 % (35.0-46.0); LYMPH % 68.7 % (9.0-44.0); LYMPHOCYTE # 28.5 TH/MM3 (1.0-4.8); MEAN CELL VOLUME 81.8 FL (80.0-100.0); MEAN CORPUSCULAR HEMOGLOBIN 26.8 PG (27.0-34.0); MEAN CORPUSCULAR HGB CONC 32.7 % (32.0-36.0); MONO % 3.2 % (0.0-8.0); NEUT % 23.5 % (16.0-70.0); PLATELET COUNT 298 TH/MM3 (150-450); RED BLOOD COUNT 4.33 MIL/MM3 (4.00-5.30); RED CELL DISTRIBUTION WIDTH 15.3 % (11.6-17.2); WHITE BLOOD COUNT 41.5 TH/MM3 (4.0-11.0)
[2016-10-03 17:17] LABS: CREATINE KINASE 22 U/L (26-192)
[2016-10-03 17:19] LABS: HEMO FLAGS AUTO DIFF
[2016-10-03] MEDS ORDERED: POTASSIUM CHLORIDE 25 MEQ EFFERVESCENT TAB G-TUBE ONE (17:30)
[2016-10-03 17:34] LABS: BLOOD, URINE TRACE (NEG); GLUCOSE,URINE NEG (NEG); KETONE, URINE NEG (NEG); NITRITE,URINE NEG (NEG)
[2016-10-03 17:40] LABS: URINE COLOR YELLOW (YELLW/STRAW)
[2016-10-03 17:41] LABS: WHITE BLOOD CELL CAST, URINE 0-2 /lpf
[2016-10-03 17:42] LABS: COMMENT (UR) CULT NOT INDICATED; CULTURE IF INDICATED CULT NOT INDICATED; SQUAMOUS EPITHELIAL CELL URINE 0-5 /hpf (0-5)
[2016-10-03 17:46] LABS: EOSINOPHILS 2 % (0-4); NEUTROPHIL # MANUAL DIFF 2.9 TH/MM3 (1.8-7.7); POLYS (SEG NEUTROPHILS) 7 % (16-70); WBC DIFF SAMPLE 100
[2016-10-03 17:47] LABS: CRENATED RBCS 1+ (NORMAL); KERATOCYTES 1+ (NORMAL); OVALOCYTES 1+ (NORMAL)
[2016-10-03 17:48] LABS: ACANTHOCYTES 1+ (NORMAL); PLATELET ESTIMATE SMEAR NORMAL (NORMAL); PLATELET MORPHOLOGY NORMAL (NORMAL); SCAN/DIFF FINAL DIFF MANUAL
--- NOTE | 2016-10-03 18:07 | RADHPO ---
EXAM DATE/TIME: 10/03/2016 17:31 [facility] COMPARISON: CT BRAIN W/O CONTRAST, September 29, 2016, 12:13. INDICATIONS : Altered mental status RADIATION DOSE: 63.53 CTDIvol (mGy) MEDICAL HISTORY : Cardiovascular disease. Hypothyroidism. PEG tube, atrial fib, previous stroke SURGICAL HISTORY : None. ENCOUNTER: Initial ACUITY: 1 day PAIN SCALE: 0/10 LOCATION: Cranial TECHNIQUE: Multiple contiguous axial images were obtained of the head. Using automated exposure control and adj ustment of the mA and/or kV according to patient size, radiation dose was kept as low as reasonably a chievable to obtain optimal diagnostic quality images. FINDINGS: Again, there is evidence of an evolving right middle cerebral artery infarct. No acute hemorrhage is noted. Moderate to severe periventricular and subcortical white matter small vessel ischemic change s are noted bilaterally. There is an old lacunar infarct involving the right basal ganglia. CONCLUSION: 1. Evolving right middle cerebral artery infarct without acute hemorrhage noted. 2. Moderate to severe periventricular and subcortical white matter small vessel ischemic changes bila terally. 3. Old lacunar infarct within the right basal ganglia. 4. No midline shift or extra-axial fluid collection. Philip Stephens MD on October 03, 2016 at 17:59 Board Certified Radiologist. This report was verified electronically.
[2016-10-03 19:04] VITALS: BP 149/76; PULSE 89; RESP 16; O2SAT 98
--- NOTE | 2016-10-04 15:24 | EKG ---
Date Performed: 10/03/2016 Time Performed: 16:25:37 PTAGE: 81 years EKG: ATRIAL FIBRILLATION WITH SLOW VENTRICULAR RESPONSE MODERATE INTRAVENTRICULAR CONDUCTION DEL AY ST DEVIATION AND MODERATE T-WAVE ABNORMALITY, CONSIDER ANTEROLATERAL ISCHEMIA ABNORMAL ECG Compare d to prior tracing no significant change PREVIOUS TRACING : 09/29/2016 11.51 DOCTOR: Levi Weaver Interpretating Date/Time 10/04/2016 15:23:24
== END 2016-10-03 19:10 | disposition home or self-care (01) ==
LOC: PHED 15:29
DX: I63.9 Cerebral infarction, unspecified (principal); E87.6 Hypokalemia; I48.91 Unspecified atrial fibrillation; I10 Essential (primary) hypertension; Z79.01 Long term (current) use of anticoagulants; Z87.891 Personal history of nicotine dependence
CPT/HCPCS: 70450; 71010; 80053; 81001; 82550; 83605; 84443; 84484; 85007; 85027; 87040; 93005; 99285; P9612

== ENCOUNTER → 2017-02-13 | Outpatient (CLI) | payer MEDICARE, OTHER ==
[~2017-02-13] MED LIST changes: +ASPI325T PO; +BACT800T5 PO; +GENT0.1C TOPICAL; +ROPI0.5T PO; +ROSU1TAB4 PO; +TYLETAB34 PO
[2017-02-13 13:58] LABS: HEMATOCRIT 24.6 % (35.0-46.0); HEMOGLOBIN 7.2 GM/DL (11.6-15.3); MEAN CELL VOLUME 69.2 FL (80.0-100.0); MEAN CORPUSCULAR HEMOGLOBIN 20.1 PG (27.0-34.0); MEAN PLATELET VOLUME 9.4 FL (7.0-11.0); PLATELET COUNT 307 TH/MM3 (150-450); RED BLOOD COUNT 3.56 MIL/MM3 (4.00-5.30); RED CELL DISTRIBUTION WIDTH 19.9 % (11.6-17.2); WHITE BLOOD COUNT 29.9 TH/MM3 (4.0-11.0)
[2017-02-13 14:08] LABS: MEAN CORPUSCULAR HGB CONC 29.1 % (32.0-36.0)
[2017-02-13 14:09] LABS: BICARBONATE 22.7 MEQ/L (21.0-32.0); BLOOD UREA NITROGEN 39 MG/DL (7-18); CHLORIDE 113 MEQ/L (98-107); CREATININE 1.05 MG/DL (0.50-1.00); GLOMERULAR FILTRATION RATE 50 ML/MIN (>89); GLUCOSE,FASTING 91 MG/DL (74-99); SODIUM (NA) 143 MEQ/L (136-145)
[2017-02-13 14:10] LABS: % SATURATION IRON PROFILE 2.1 % (20-50); IRON (FE) 13 MCG/DL (50-170); TOTAL IRON BINDING CAPACITY 619 MCG/DL (250-450)
[2017-02-13 14:52] LABS: BASOPHILS 1 % (0-2); BLASTS 1 % (0-0); LYMPHOCYTES 73 % (9-44); NEUTROPHIL # MANUAL DIFF 7.2 TH/MM3 (1.8-7.7); POLYS (SEG NEUTROPHILS) 24 % (16-70)
[2017-02-13 14:53] LABS: ACANTHOCYTES 1+ (NORMAL); KERATOCYTES OCC (NORMAL); OVALOCYTES 1+ (NORMAL)
[2017-02-13 14:54] LABS: HELMET CELLS OCC (NORMAL)
== END ==
LOC: PLAB 09:32
PROVIDERS: ATTEND Family Medicine
DX: I48.91 Unspecified atrial fibrillation (principal); D48.5 Neoplasm of uncertain behavior of skin; L57.0 Actinic keratosis; I10 Essential (primary) hypertension; G25.81 Restless legs syndrome; C91.10 Chronic lymphocytic leukemia of B-cell type not having achieved remission; I73.9 Peripheral vascular disease, unspecified; D64.9 Anemia, unspecified; L97.909 Non-pressure chronic ulcer of unspecified part of unspecified lower leg with unspecified severity; Z93.1 Gastrostomy status; Z72.0 Tobacco use
CPT/HCPCS: 36415; 80048; 83540; 83550; 85007; 85027

== ENCOUNTER → 2017-02-19 | Outpatient (CLI) | payer MEDICARE, OTHER ==
[~2017-02-19] MED LIST changes: -FLUD.1 PEG
[2017-02-19 15:59] LABS: AUTOMATED NEUTROPHIL # 6.3 TH/MM3 (1.8-7.7); BASOPHIL # 0.2 TH/MM3 (0-0.2); BASOPHIL % 0.5 % (0.0-2.0); EOSINOPHIL # 0.5 TH/MM3 (0-0.4); EOSINOPHIL % 1.7 % (0.0-4.0); LYMPH % 75.5 % (9.0-44.0); LYMPHOCYTE # 23.6 TH/MM3 (1.0-4.8); MEAN CELL VOLUME 67.9 FL (80.0-100.0); MEAN CORPUSCULAR HEMOGLOBIN 19.2 PG (27.0-34.0); MEAN PLATELET VOLUME 9.9 FL (7.0-11.0); MONO % 2.1 % (0.0-8.0); MONOCYTE # 0.6 TH/MM3 (0-0.9); NEUT % 20.2 % (16.0-70.0); PLATELET COUNT 260 TH/MM3 (150-450); RED BLOOD COUNT 3.41 MIL/MM3 (4.00-5.30); RED CELL DISTRIBUTION WIDTH 20.4 % (11.6-17.2); WHITE BLOOD COUNT 31.2 TH/MM3 (4.0-11.0)
[2017-02-19 16:08] LABS: MEAN CORPUSCULAR HGB CONC 28.3 % (32.0-36.0)
[2017-02-19 16:09] LABS: HEMATOCRIT 23.1 % (35.0-46.0); HEMOGLOBIN 6.5 GM/DL (11.6-15.3)
[2017-02-19 16:26] LABS: BICARBONATE 27.1 MEQ/L (21.0-32.0); CALCIUM 8.5 MG/DL (8.5-10.1); CREATININE 1.2 MG/DL (0.50-1.00)
[2017-02-19 16:33] LABS: ACANTHOCYTES 1+ (NORMAL); KERATOCYTES 1+ (NORMAL); OVALOCYTES 1+ (NORMAL)
== END ==
LOC: PLAB 13:04
PROVIDERS: ATTEND Family Medicine
DX: L97.909 Non-pressure chronic ulcer of unspecified part of unspecified lower leg with unspecified severity (principal); C91.10 Chronic lymphocytic leukemia of B-cell type not having achieved remission; I73.9 Peripheral vascular disease, unspecified; D64.9 Anemia, unspecified; R60.0 Localized edema
CPT/HCPCS: 36415; 80048; 82728; 85025